=== PATIENT | male | born 1955 | race Caucasian/White ===

== ENCOUNTER 2016-06-12 11:15 | Inpatient (IN) | payer OTHER ==
[2016-06-12] MEDS ORDERED: ONDANSETRON 4 MG/2 ML VIAL IVP STA (13:03)
[2016-06-12] MEDS ORDERED: HYDROmorphone 1 MG/ML 1 ML SYRINGE IVP STA (13:03)
[2016-06-12] MEDS ORDERED: SODIUM CHLORIDE 0.9% 1,000 ML IV STA (13:03)
[2016-06-12] MEDS ORDERED: VANCOMYCIN 1,250 MG in SODIUM CHLORIDE 0.9% 250 ML IVPB STA (13:06)
[2016-06-12] MEDS ORDERED: IV VANCOMYCIN PER PHARMACY 1 EACH MISC MISCELLANE PRN (13:06)
--- NOTE | 2016-06-12 13:08 | ED ---
General Adult HPI - General Source: patient, RN notes reviewed Mode of arrival: ambulatory Limitations: no limitations <Jay Fields - Last Filed: 06/12/16 14:43> <Giovany Ortega - Last Filed: 06/12/16 14:47> - General Chief complaint: Skin/Abscess/Foreign Body Stated complaint: INFECTION ON LEFT FOOT, EAR PAIN, SENT BY DR Time Seen by Provider: 06/12/16 12:54 - History of Present Illness Initial comments: Patient a 61-year-old male who presents emergency room today with chief complaint of infection to the left foot. He does admit that started as symptoms of athlete's foot. He states started in between toes and has gotten much worse the past 3 weeks. Patient states he initially was using a cream over top which seemed to help but has had no relief the past 3 weeks. States is his family doctor today was advised coming here to the emergency room for admission. Patient admits to pain locally to this area. Describes it as a burning type sensation. He denies any other complaints or symptoms. Patient denies any recent fever, chills, shortness of breath, chest pain, back pain, abdominal pain, nausea or vomiting, numbness or tingling, dysuria or hematuria, constipation or diarrhea, headaches or visual changes, or any other complaints. (Jay Fields) - Related Data Home Medications Medication Instructions Recorded Confirmed Naproxen Sodium [Aleve] 440 mg PO BID PRN 06/12/16 06/12/16 Allergies Allergy/AdvReac Type Severity Reaction Status Date / Time No Known Allergies Allergy Verified 06/12/16 13:53 Review of Systems ROS Other: All systems not noted in ROS Statement are negative. <Jay Fields - Last Filed: 06/12/16 14:43> ROS Other: All systems not noted in ROS Statement are negative. <Giovany Ortega - Last Filed: 06/12/16 14:47> ROS Statement: Those systems with pertinent positive or pertinent negative responses have been documented in the HPI. Past Medical History Past Medical History: No Reported History History of Any Multi-Drug Resistant Organisms: None Reported Past Surgical History: Orthopedic Surgery Additional Past Surgical History / Comment(s): ankle Past Psychological History: No Psychological Hx Reported Smoking Status: Current every day smoker Past Alcohol Use History: Occasional Past Drug Use History: None Reported <Jay Fields - Last Filed: 06/12/16 14:43> General Exam Limitations: no limitations <Jay Fields - Last Filed: 06/12/16 14:43> General appearance: alert, in no apparent distress Head exam: Present: atraumatic, normocephalic, normal inspection Eye exam: Present: normal appearance, PERRL, EOMI. Absent: scleral icterus, conjunctival injection, periorbital swelling ENT exam: Present: normal exam, mucous membranes moist Neck exam: Present: normal inspection. Absent: tenderness, meningismus, lymphadenopathy Respiratory exam: Present: normal lung sounds bilaterally. Absent: respiratory distress, wheezes, rales, rhonchi, stridor Cardiovascular Exam: Present: regular rate, normal rhythm, normal heart sounds. Absent: systolic murmur, diastolic murmur, rubs, gallop, clicks GI/Abdominal exam: Present: soft, normal bowel sounds. Absent: distended, tenderness, guarding, rebound, rigid Extremities exam: Present: normal inspection, full ROM, normal capillary refill , other (Left foot second through fourth digits significant swelling erythema and drainage). Absent: tenderness, pedal edema, joint swelling, calf tenderness Back exam: Present: normal inspection Neurological exam: Present: alert, oriented X3, CN II-XII intact Psychiatric exam: Present: normal affect, normal mood Skin exam: Present: warm, dry, intact, normal color. Absent: rash <Giovany Ortega - Last Filed: 06/12/16 14:47> - General Exam Comments Initial Comments: General: The patient is awake and alert, in no distress, and does not appear acutely ill. Eye: Pupils are equal, round and reactive to light, extra-ocular movements are intact. No nystagmus. There is normal conjunctiva bilaterally. No signs of icterus. Ears, nose, mouth and throat: There are moist mucous membranes and no oral lesions. Neck: The neck is supple, there is no tenderness or JVD. Cardiovascular: There is a regular rate and rhythm. No murmur, rub or gallop is appreciated. Respiratory: Lungs are clear to auscultation, respirations are non-labored, breath sounds are equal. No wheezes, stridor, rales, or rhonchi. Musculoskeletal: Normal ROM. Strength 5/5. Sensation intact. Pulses equal bilaterally 2+. Neurological: A&O x 3. CN II-XII intact, There are no obvious motor or sensory deficits. Coordination appears grossly intact. Speech is normal. Skin: Patient does have an infection down to the toes and between the webspace between on the left. It encompasses both the anterior and posterior side. There is redness with a green drainage. There is a foul smell. Psychiatric: Cooperative, appropriate mood & affect, normal judgment. 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8-10.6) k/uL RBC 4.56 (4.30-5.90) m/uL Hgb 14.9 (13.0-17.5) gm/dL Hct 43.9 (39.0-53.0) % MCV 96.3 (80.0-100.0) fL MCH 32.6 (25.0-35.0) pg MCHC 33.9 (31.0-37.0) g/dL RDW 13.7 (11.5-15.5) % Plt Count 285 (150-450) k/uL Neutrophils % 66 % Lymphocytes % 17 % Monocytes % 9 % Eosinophils % 4 % Basophils % 1 % Neutrophils # 7.1 (1.3-7.7) k/uL Lymphocytes # 1.8 (1.0-4.8) k/uL Monocytes # 1.0 (0-1.0) k/uL Eosinophils # 0.4 (0-0.7) k/uL Basophils # 0.1 (0-0.2) k/uL Sodium 141 (137-145) mmol/L Potassium 4.2 (3.5-5.1) mmol/L Chloride 108 H (98-107) mmol/L Carbon Dioxide 24 (22-30) mmol/L Anion Gap 9 mmol/L BUN 18 (9-20) mg/dL Creatinine 0.87 (0.66-1.25) mg/dL Est GFR (MDRD) Af Amer >60 (>60 ml/min/1.73 sqM) Est GFR (MDRD) Non-Af >60 (>60 ml/min/1.73 sqM) Glucose 90 (74-99) mg/dL Calcium 9.2 (8.4-10.2) mg/dL Total Bilirubin 0.5 (0.2-1.3) mg/dL AST 21 (17-59) U/L ALT 29 (21-72) U/L Alkaline Phosphatase 71 (38-126) U/L Total Protein 7.0 (6.3-8.2) g/dL Albumin 4.2 (3.5-5.0) g/dL Disposition Time of Disposition: 14:01 <Jay Fields - Last Filed: 06/12/16 14:43> <Giovany Ortega - Last Filed: 06/12/16 14:47> Clinical Impression: Cellulitis Disposition: ADMITTED IP TO THIS HOSP Condition: Stable Referrals: Cuauhtemoc Wilson DO [Primary Care Provider] - 1-2 days
[2016-06-12 14:02] LABS: Basophils # (A) 0.1 k/uL (0-0.2); Basophils % (A) 1 %; CH 32.6; CHCM 34.1; Eosinophils # (A) 0.4 k/uL (0-0.7); Eosinophils % (A) 4 %; HCT 43.9 % (39.0-53.0); HDW 2.44; HGB 14.9 gm/dL (13.0-17.5); Luc # (Auto) 0.35; Luc % (Auto) 3; Lymphocytes # (A) 1.8 k/uL (1.0-4.8); Lymphocytes % (A) 17 %; MCH 32.6 pg (25.0-35.0); MCHC 33.9 g/dL (31.0-37.0); MCV 96.3 fL (80.0-100.0); Monocytes % (A) 9 %; Neutrophils # (A) 7.1 k/uL (1.3-7.7); Neutrophils % (A) 66 %; RBC 4.56 m/uL (4.30-5.90); RDW 13.7 % (11.5-15.5); WBC 10.8 k/uL (3.8-10.6); WBC (Perox) 10.97
--- NOTE | 2016-06-12 14:05 | XR ---
Left foot HISTORY: Pain and swelling, erythema 3 views of the left foot are submitted. No comparisons There is a plantar calcaneus spur. Soft tissue swelling is suspected. Bone mineralization, joint spac es and alignment are maintained. No periostitis. IMPRESSION: Correlate for cellulitis, edema, follow-up as indicated.
[2016-06-12 14:15] LABS: ALT 29 U/L (21-72); AST 21 U/L (17-59); Alkaline Phosphatase 71 U/L (38-126); Anion Gap 9 mmol/L; Blood Urea Nitrogen 18 mg/dL (9-20); Calcium 9.2 mg/dL (8.4-10.2); Carbon Dioxide 24 mmol/L (22-30); Chloride 108 mmol/L (98-107); Glucose 90 mg/dL (74-99); Non-African American GFR(MDRD) >60 (>60 ml/min/1.73 sqM); Potassium 4.2 mmol/L (3.5-5.1); Sodium 141 mmol/L (137-145); Total Bilirubin 0.5 mg/dL (0.2-1.3)
[2016-06-12] MEDS ORDERED: ACETAMINOPHEN TAB 325 MG TAB PO PRN (14:44)
[2016-06-12] MEDS ORDERED: NALOXONE 0.4 MG/ML 1 ML VIAL IV PRN (14:44)
[2016-06-12] MEDS ORDERED: ONDANSETRON 4 MG/2 ML VIAL IVP PRN (14:44)
[2016-06-12] MEDS ORDERED: SODIUM CHLORIDE 0.9% 1,000 ML IV ONE (14:44)
--- NOTE | 2016-06-12 15:10 | ED ---
Medical Decision Making - Medical Decision Making Patient will be admitted to the hospital for IV antibiotics due to increasing cellulitis of the left foot and outpatient treatment failure. X-rays reviewed are unremarkable for any evidence of osteomyelitis. Patient's labs been reviewed with minimally elevated white count. Vital stable. Patient's pain. Pain medication. Patient be continued on IV antibiotics of vancomycin at this time. Case discussed with attending physician Dr. Ortega who did discuss case with admitting physician Dr. Smith who request consult from infectious disease Dr. Monroy. - Lab Data Result diagrams: 06/12/16 13:40 06/12/16 13:40 Lab Results 06/12/16 06/12/16 Range/Units 13:40 13:40 WBC 10.8 H (3.8-10.6) k/uL RBC 4.56 (4.30-5.90) m/uL Hgb 14.9 (13.0-17.5) gm/dL Hct 43.9 (39.0-53.0) % MCV 96.3 (80.0-100.0) fL MCH 32.6 (25.0-35.0) pg MCHC 33.9 (31.0-37.0) g/dL RDW 13.7 (11.5-15.5) % Plt Count 285 (150-450) k/uL Neutrophils % 66 % Lymphocytes % 17 % Monocytes % 9 % Eosinophils % 4 % Basophils % 1 % Neutrophils # 7.1 (1.3-7.7) k/uL Lymphocytes # 1.8 (1.0-4.8) k/uL Monocytes # 1.0 (0-1.0) k/uL Eosinophils # 0.4 (0-0.7) k/uL Basophils # 0.1 (0-0.2) k/uL Sodium 141 (137-145) mmol/L Potassium 4.2 (3.5-5.1) mmol/L Chloride 108 H (98-107) mmol/L Carbon Dioxide 24 (22-30) mmol/L Anion Gap 9 mmol/L BUN 18 (9-20) mg/dL Creatinine 0.87 (0.66-1.25) mg/dL Est GFR (MDRD) Af Amer >60 (>60 ml/min/1.73 sqM) Est GFR (MDRD) Non-Af >60 (>60 ml/min/1.73 sqM) Glucose 90 (74-99) mg/dL Calcium 9.2 (8.4-10.2) mg/dL Total Bilirubin 0.5 (0.2-1.3) mg/dL AST 21 (17-59) U/L ALT 29 (21-72) U/L Alkaline Phosphatase 71 (38-126) U/L Total Protein 7.0 (6.3-8.2) g/dL Albumin 4.2 (3.5-5.0) g/dL Disposition Clinical Impression: Cellulitis, Failure of outpatient treatment Disposition: ADMITTED IP TO THIS HOSP Condition: Stable Referrals: Cuauhtemoc Wilson DO [Primary Care Provider] - 1-2 days
--- NOTE | 2016-06-12 17:45 | P.HPIM ---
History of Present Illness H&P Date: 06/12/16 Chief Complaint: bilateral toe web drainage, right toe webs redness This is a pleasant 61 year old gentleman patient of Dr Wilson, he is healthy except for tobacco dependence. He had troubles with the webs between his toes for the paat 2 mos that it started denuding with maceration and itchiness and it had gotten worse that the skin between the web of the toes #3,4 ,5 had peeled off, gotten red nd hd significant pain and drainage. he did not seek any consultation or prior treatment from any urgent care or OTC meds. He was seen in the ER for cellulitis compounded by an initially what is suspected as tinea pedis now with secondary bacterial infection. 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 He is currently treated with IV cefazolin, consults with Dr Monroy, and cultures were obtained in ER. Review of Systems Constitutional: Reports as per HPI, Denies anorexia, Denies chills, Denies chronic headaches, Denies chronic pain, Denies daytime sleepiness, Denies fatigue, Denies fever, Denies lethargy, Denies malaise, Denies night sweats, Denies poor appetite, Denies sweats, Denies weakness, Denies weight gain, Denies weight loss Ears, nose, mouth and throat: Reports as per HPI, Denies ant. neck pain, Denies bleeding gums, Denies dental pain, Denies dysphagia, Denies epistaxis, Denies headache, Denies hoarseness, Denies mouth pain, Denies nasal congestion, Denies nasal discharge, Denies neck fullness/pressure, Denies neck lump, Denies nose pain, Denies odynophagia, Denies post-nasal drip, Denies sinus pain, Denies sinus pressure, Denies swelling in mouth, Denies swelling in throat, Denies sore throat, Denies vertigo, Denies voice changes Cardiovascular: Reports as per HPI Musculoskeletal: Reports as per HPI, Denies arm numbness/tingling, Denies atrophy, Denies fractures, Denies frequent falls, Denies gait dysfunction, Denies hot joints, Denies leg numbness/tingling, Denies limitation of motion, Denies loss of height, Denies low back pain, Denies morning stiffness, Denies muscle cramps, Denies muscle weakness, Denies myalgias, Denies neck pain, Denies neck stiffness, Denies prior amputations, Denies redness of joints, Denies shooting arm pain, Denies shooting leg pain Integumentary: Reports as per HPI, Reports rash, Reports sores, Reports wounds, Denies acne, Denies boils, Denies brittle nails, Denies change in hair/nails, Denies color changes, Denies darkening of skin, Denies depigmentation, Denies dryness, Denies foot/leg ulcers, Denies growths, Denies hirsutism, Denies lesions, Denies onychomycosis, Denies pruritus, Denies striae, Denies unusual bruising Neurological: Reports as per HPI, Denies aphasia, Denies ataxia, Denies balance difficulties, Denies burning pain, Denies change in mentation, Denies change in smell/taste, Denies change in speech, Denies confusion, Denies convulsions, Denies double vision, Denies gait dysfunction, Denies head injury, Denies headaches, Denies hearing difficulties, Denies lack of coordination, Denies loss of vision, Denies memory loss, Denies migraines, Denies motor disturbance, Denies numbness, Denies paralysis, Denies paresthesias, Denies seizures, Denies sensory deficit, Denies spasticity, Denies syncope, Denies tic, Denies tingling , Denies transient paralysis, Denies tremors, Denies vertigo, Denies weakness, Denies visual changes Psychiatric: Reports as per HPI, Denies anhedonia, Denies anxiety, Denies anxiety attacks, Denies change in appetite, Denies change in libido, Denies change in sleep habits, Denies confusion, Denies depression, Denies difficulty concentrating, Denies disorientation, Denies hallucinations, Denies hopelessness , Denies hypersomnia, Denies insomnia, Denies irritability, Denies memory loss, Denies mood swings, Denies paranoia, Denies sadness/tearfulness, Denies sleep disturbances, Denies suicidal ideation Endocrine: Reports cold intolerance, Denies as per HPI, Denies deepening of the voice, Denies excessive sweating, Denies excessive thirst, Denies fatigue, Denies flushing, Denies heat intolerance, Denies high blood sugars, Denies increase in ring/shoe/hat size, Denies low blood sugars, Denies nocturia, Denies palpitations, Denies polydipsia, Denies polyphagia, Denies polyuria, Denies proptosis, Denies recent glucocorticoid use, Denies thyroid mass, Denies weight change Hematologic/Lymphatic: Reports as per HPI Past Medical History Past Medical History: No Reported History History of Any Multi-Drug Resistant Organisms: None Reported Past Surgical History: Orthopedic Surgery Additional Past Surgical History / Comment(s): rt ankle arthroscopy, "inj in back" Past Anesthesia/Blood Transfusion Reactions: No Reported Reaction Past Psychological History: No Psychological Hx Reported Additional Psychological History / Comment(s): pt lives withhis and has 1 bibiana dog. lives in ranch style home with 1 step. pt is independant,no outside services, no medical equipment. 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 Smoking Status: Current every day smoker Past Alcohol Use History: Occasional Additional Past Alcohol Use History / Comment(s): started smokng at age 20(1975) , smokes 1 ppd. declined smoking cessation booklet. Past Drug Use History: None Reported - Past Family History Father Additional Family Medical History / Comment(s): back/knee sx Mother Family Medical History: No Reported History Brother(s) Family Medical History: No Reported History Sister(s) Family Medical History: No Reported History Medications and Allergies Home Medications Medication Instructions Recorded Confirmed Type Naproxen Sodium [Aleve] 440 mg PO BID PRN 06/12/16 06/12/16 History Allergies Allergy/AdvReac Type Severity Reaction Status Date / Time No Known Allergies Allergy Verified 06/12/16 13:53 Physical Exam Vitals: Vital Signs Temp Pulse Pulse Resp BP BP Pulse Ox 06/12/16 16:25 97.0 F L 65 20 148/86 95 06/12/16 15:24 97.4 F L 64 16 154/90 100 - Constitutional General appearance: cooperative, no acute distress - EENT Eyes: no abnormal pupil, anicteric sclerae, no disc margins sharp, no edentulous , EOMI, PERRLA, no fundus normal, no photophobia, no dentition normal, no poor dentition, no ptosis, no scleral icterus, no normal appearance ENT: hearing grossly normal, NA/AT - Neck Neck: no lymphadenopathy, normal ROM, no other, no rigidity, no stridor, no thyromegaly - Respiratory Respiratory: bilateral: CTA, negative: diminished, dullness, rales, rhonchi, wheezing, prolonged expiration, prolonged inspiration - Gastrointestinal General gastrointestinal: normal bowel sounds, soft - Integumentary Integumentary: normal, normal turgor, rash (right foot web 2-3.3-4.4-5 macerated white debris, left toes 2-3. 3-4.4-5 with red maceration drainage and odor, right ear lobe red excoriated all lesions with pinpoint papulomatous eruptions) - Neurologic Neurologic: CNII-XII intact - Musculoskeletal Musculoskeletal: gait normal, strength equal bilaterally - Psychiatric Psychiatric: A&O x's 3, appropriate affect, intact judgment & insight Results CBC & Chem 7: 06/12/16 13:40 06/12/16 13:40 Assessment and Plan Plan: 1. bilateral foot cellulitis involving bilateral toes worse on left more than right with secondary bacterial infection suspected, underlying fungal infection. has significant involvent on plantar aspect and dorsum of left foot. patient had cultures done from wounds, he was started on cefaxolin, and lamsil cream. Consult from dr Monroy. no arterial doppler needed as physical exam shows adequate foot pulses 2. right earlobe rash, fungal appearance vs eczema. lamisil ointment to be applied 3. tobacco dependence, pt decline nicotine patches 4. vte prophylaxis with lovenox 40 daily Estimated length of stay: 3 days,
[2016-06-12] MEDS ORDERED: ceFAZolin 2 GM in SODIUM CHLORIDE 0.9% 100 ML IVPB SCH (18:15)
[2016-06-12] MEDS: HYDROmorphone 1 MG/ML 1 ML SYRINGE IV PRN (19:19)
[2016-06-12] MEDS: FLUCONAZOLE 100 MG TAB PO SCH (20:57)
[2016-06-12] MEDS ORDERED: TERBINAFINE 1% CREAM 15 GM TUBE TOPICAL SCH (21:00)
[2016-06-12] MEDS: PIPERACILLIN-TAZOBACTAM 3.375 GM in DEXTROSE/WATER 1 50ML.BAG IVPB SCH (22:17)
--- NOTE | 2016-06-12 23:30 | P.CONS ---
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 The patient relates for the last couple of months she's been having difficulties with what he thought was athlete's foot to the left foot and a bit also to the right. He's been treating it with multiple medications including topical antifungals. He did have treatment from podiatry with [place] soaks. He relates has been some waxing and waning to the status but is now acutely worse. His become much more moist and foul in odor. Because of his time in the was concerned about foot loss. He relates he is less afraid of both Rockets than he is of the current process to his foot which is why he is seeking care. Relates a processes become very uncomfortable but usually is very resistant to pain. He does not believe he has had fever, chills or rigors. He does not feel well overall. Review of Systems HEENT:Denies headache or acute visual change. Denies sinus or mouth discomforts. Denies neck stiffness or pain. Denies significant oral cavity pain. Denies difficulty on swallowing. Lungs: Denies significant shortness of breath, cough, sputum production, or hemoptysis. Cardiovascular: Denies significant shortness of breath, chest pain, chest wall pain, orthopnea, dyspnea on exertion, syncope Gastrointestinal:Denies nausea, vomiting, diarrhea, constipation, hematemesis, melena, hematochezia. No no significant change of bowel habit noticed. Musculoskeletal: denies significant myalgias or arthralgias. No new joint swelling. Denies new back pain. Skin: Nippy and lesions to left foot as well as a bit to the right foot at the toes very tender Neuro: Denies headache or visual change. Denies any new onset weakness or difficulty with ambulation. Denies falls or seizures. Psychiatric:Denies anxiety or depression. Endocrine: Denies significant fatigue, denies significant weight loss or weight gain. Past Medical History Past Medical History: No Reported History History of Any Multi-Drug Resistant Organisms: None Reported Past Surgical History: Orthopedic Surgery Additional Past Surgical History / Comment(s): rt ankle arthroscopy, "inj in back" Past Anesthesia/Blood Transfusion Reactions: No Reported Reaction Past Psychological History: No Psychological Hx Reported Additional Psychological History / Comment(s): pt lives withhis and has 1 bibiana dog. lives in ranch style home with 1 step. pt is independant,no outside services, no medical equipment. 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 He does work in the [facility] area and travels quite a bit on a daily basis. His feet are in steel toed boots but he is not in water or chemicals throughout the day. Does not relate to any soaks to the feet other than the [place]. No international travel since his experience when he was in the [place] in [place]. Had no foot troubles at that time has not been to tropical destinations. Ongoing tobacco use. Denies significant alcohol use. No recreational drug use. No children. Smoking Status: Current every day smoker Past Alcohol Use History: Occasional Additional Past Alcohol Use History / Comment(s): started smokng at age 20(1975) , smokes 1 ppd. declined smoking cessation booklet. Past Drug Use History: None Reported - Past Family History Father Additional Family Medical History / Comment(s): back/knee sx Mother Family Medical History: No Reported History Brother(s) Family Medical History: No Reported History Sister(s) Family Medical History: No Reported History Medications and Allergies Home Medications and Allergies Comment(s): Current Medications Acetaminophen (Tylenol Tab) 650 mg PO Q6HR PRN PRN Reason: Mild Pain or Fever > 100.5 Fluconazole (Diflucan) 200 mg PO Q24H DIVINE Last Admin: 06/12/16 20:57 Dose: 200 mg Hydromorphone HCl (Dilaudid) 1 mg IV Q3HR PRN PRN Reason: Severe Pain Last Admin: 06/12/16 19:19 Dose: 1 mg Vancomycin HCl 1,250 mg/ (Sodium Chloride) 250 mls @ 125 mls/hr IVPB DAILY@0000 ,1200 DIVINE Sodium Chloride (Saline 0.9%) 1,000 mls @ 75 mls/hr IV .[id number] ONE Stop: 06/13/16 04:03 Last Admin: 06/12/16 17:06 Dose: Not Given Piperacillin/Tazobactam/ (Dextrose 3.375 gm/ IV Solution) 50 mls @ 12.5 mls/hr IVPB Q8H DIVINE Last Admin: 06/12/16 22:17 Dose: 12.5 mls/hr Naloxone HCl (Narcan) 0.2 mg IV Q2M PRN PRN Reason: Opioid Reversal Ondansetron HCl (Zofran) 4 mg IVP Q8HR PRN PRN Reason: Nausea And Vomiting Home Medications Medication Instructions Recorded Confirmed Type Naproxen Sodium [Aleve] 440 mg PO BID PRN 06/12/16 06/12/16 History Allergies Allergy/AdvReac Type Severity Reaction Status Date / Time No Known Allergies Allergy Verified 06/12/16 13:53 Physical Exam Vitals: Vital Signs Temp Pulse Pulse Resp BP BP Pulse Ox 06/12/16 16:25 97.0 F L 65 20 148/86 95 06/12/16 15:24 97.4 F L 64 16 154/90 100 Intake and Output 06/12/16 06/12/16 06/13/16 14:59 22:59 06:59 Intake Total 480 Balance 480 Intake: Oral 480 Other: # Voids 1 Pleasant 61-year-old male a very thin muscular build is uncomfortable due to the pain and discomfort to his left foot. Is also having some anxiety related to the foot. HEENT: Anicteric conjunctiva are pink and moist nasal mucosa grossly intact without significant lesions, there is no thrush. Neck: The neck is supple without significant lymphadenopathy or thyromegaly. Lungs: Good bilateral air entry without significant crackles or wheezing. There is no significant bronchial sounds. There is no egophony or dullness. Heart: Regular rate and rhythm with an audible S1-S2, no S3 no S4. There is no significant murmur click or rub, PMI was nondisplaced. Abdomen: Positive bowel sounds soft and nontender without palpable masses or organomegaly. There was no guarding or rebound. Extremities: The upper extremities have excellent pulses they are symmetric, no significant petechiae or telangiectasia. No splinter hemorrhages were noted. The right foot shows evidence of some mild yakelin infection of the interspace of the toes Left foot shows evidence of the extensive ulceration of the skin over all the toes especially 2 through 5. Plantar surfaces full-thickness loss dorsal surfaces partial-thickness loss. There is drainage and odor, erythema and tenderness. There is minimal swelling of the foot. The foot is warm to touch. Peripheral pulses 2+ and symmetric. Neuro: Awake alert oriented to person place and time. There are no acute new gross focal sensory motor deficits. Results CBC & Chem 7: 06/12/16 13:40 06/12/16 13:40 Labs: Laboratory Results WBC 10.8 k/uL (3.8-10.6) H 06/12/16 13:40 RBC 4.56 m/uL (4.30-5.90) 06/12/16 13:40 Hgb 14.9 gm/dL (13.0-17.5) 06/12/16 13:40 Hct 43.9 % (39.0-53.0) 06/12/16 13:40 MCV 96.3 fL (80.0-100.0) 06/12/16 13:40 MCH 32.6 pg (25.0-35.0) 06/12/16 13:40 MCHC 33.9 g/dL (31.0-37.0) 06/12/16 13:40 RDW 13.7 % (11.5-15.5) 06/12/16 13:40 Plt Count 285 k/uL (150-450) 06/12/16 13:40 Neutrophils % 66 % 06/12/16 13:40 Lymphocytes % 17 % 06/12/16 13:40 Monocytes % 9 % 06/12/16 13:40 Eosinophils % 4 % 06/12/16 13:40 Basophils % 1 % 06/12/16 13:40 Neutrophils # 7.1 k/uL (1.3-7.7) 06/12/16 13:40 Lymphocytes # 1.8 k/uL (1.0-4.8) 06/12/16 13:40 Monocytes # 1.0 k/uL (0-1.0) 06/12/16 13:40 Eosinophils # 0.4 k/uL (0-0.7) 06/12/16 13:40 Basophils # 0.1 k/uL (0-0.2) 06/12/16 13:40 Sodium 141 mmol/L (137-145) 06/12/16 13:40 Potassium 4.2 mmol/L (3.5-5.1) 06/12/16 13:40 Chloride 108 mmol/L (98-107) H 06/12/16 13:40 Carbon Dioxide 24 mmol/L (22-30) 06/12/16 13:40 Anion Gap 9 mmol/L 06/12/16 13:40 BUN 18 mg/dL (9-20) 06/12/16 13:40 Creatinine 0.87 mg/dL (0.66-1.25) 06/12/16 13:40 Est GFR (MDRD) Af Amer >60 (>60 ml/min/1.73 sqM) 06/12/16 13:40 Est GFR (MDRD) Non-Af >60 (>60 ml/min/1.73 sqM) 06/12/16 13:40 Glucose 90 mg/dL (74-99) 06/12/16 13:40 Calcium 9.2 mg/dL (8.4-10.2) 06/12/16 13:40 Total Bilirubin 0.5 mg/dL (0.2-1.3) 06/12/16 13:40 AST 21 U/L (17-59) 06/12/16 13:40 ALT 29 U/L (21-72) 06/12/16 13:40 Alkaline Phosphatase 71 U/L (38-126) 06/12/16 13:40 Total Protein 7.0 g/dL (6.3-8.2) 06/12/16 13:40 Albumin 4.2 g/dL (3.5-5.0) 06/12/16 13:40 Microbiology 06/12/16 13:40 Toe - Left Fourth Wound Culture - Preliminary Assessment and Plan (1) Failure of outpatient treatment Narrative/Plan: Very pleasant 61 year old male presents to Hospital with significant worsening of the skin problems to the left foot at the toes. He thought he was having significant fungal problems. Was treating that accordingly. Despite [place] soaks and topical antifungal therapy he was not improving. He did seek care at his primary care physician office and was directly sent to hospital for admission. As noted there is an extensive cellulitis with some full thickness tissue loss over toes 234 and 5 especially on the plantar surface. It is tender and very uncomfortable. There is sustained odor and drainage. Cultures of been obtained. Leukocytosis is noted. Pain control with Dilaudid as been per the primary care physician and seems to be effective. Local wound care will will be with the Optisol silver Antimicrobial therapy with Zosyn, vancomycin and Diflucan for now while cultures are pending. Plan x-ray failed to reveal evidence of significant abnormalities. Patient is a smoker, but the foot feels warm and well perfused. We do well still to have arterial Dopplers performed. Status: Acute (2) Cellulitis of foot, left Status: Acute (3) Leukocytosis Status: Acute (4) Pain in left foot Status: Acute
[2016-06-13] MEDS: VANCOMYCIN 1,250 MG in SODIUM CHLORIDE 0.9% 250 ML IVPB SCH ×2 (02:31→12:12)
[2016-06-13] MEDS: PIPERACILLIN-TAZOBACTAM 3.375 GM in DEXTROSE/WATER 1 50ML.BAG IVPB SCH ×3 (06:03→20:57)
[2016-06-13 09:41] LABS: Basophils # (A) 0.1 k/uL (0-0.2); Basophils % (A) 1 %; CH 32.5; Eosinophils # (A) 0.5 k/uL (0-0.7); Eosinophils % (A) 4 %; HCT 45.7 % (39.0-53.0); HDW 2.48; HGB 14.8 gm/dL (13.0-17.5); Luc # (Auto) 0.33; Luc % (Auto) 3; Lymphocytes # (A) 1.7 k/uL (1.0-4.8); Lymphocytes % (A) 14 %; MCH 32.1 pg (25.0-35.0); MCHC 32.5 g/dL (31.0-37.0); MCV 98.9 fL (80.0-100.0); Monocytes # (A) 0.9 k/uL (0-1.0); Monocytes % (A) 8 %; Neutrophils # (A) 8.3 k/uL (1.3-7.7); Neutrophils % (A) 71 %; RBC 4.62 m/uL (4.30-5.90); RDW 13.8 % (11.5-15.5); WBC 11.8 k/uL (3.8-10.6); WBC (Perox) 12.15
[2016-06-13 10:06] LABS: ALT 33 U/L (21-72); AST 21 U/L (17-59); Alkaline Phosphatase 69 U/L (38-126); Anion Gap 8 mmol/L; Blood Urea Nitrogen 11 mg/dL (9-20); Calcium 8.9 mg/dL (8.4-10.2); Carbon Dioxide 24 mmol/L (22-30); Chloride 109 mmol/L (98-107); Glucose 99 mg/dL (74-99); Non-African American GFR(MDRD) >60 (>60 ml/min/1.73 sqM); Potassium 4.6 mmol/L (3.5-5.1); Sodium 141 mmol/L (137-145); Total Bilirubin 0.7 mg/dL (0.2-1.3); Total Protein 6.3 g/dL (6.3-8.2)
[2016-06-13] MEDS: HYDROmorphone 1 MG/ML 1 ML SYRINGE IV PRN ×3 (10:08→21:17)
[2016-06-13 10:13] LABS: Prealbumin 24 mg/dL (18-36)
[2016-06-13 12:01] LABS: Erythrocyte Sedimentation Rate 5 mm/hr (0-15)
--- NOTE | 2016-06-13 12:45 | P.PN ---
Subjective This is a pleasant 61 year old gentleman patient of Dr Wilson, he is healthy except for tobacco dependence. He had troubles with the webs between his toes for the paat 2 mos that it started denuding with maceration and itchiness and it had gotten worse that the skin between the web of the toes #3,4 ,5 had peeled off, gotten red nd hd significant pain and drainage. he did not seek any consultation or prior treatment from any urgent care or OTC meds. He was seen in the ER for cellulitis compounded by an initially what is suspected as tinea pedis now with secondary bacterial infection. 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 He is currently treated with IV cefazolin, consults with Dr Monroy, and cultures were obtained in ER. 06/13: Patient has been followed by Dr. Monroy with recommendations to continue Zosyn, vancomycin, Diflucan and Opticell dressing. Wound culture is in process. Pre-albumin 24. White count currently 11.8. Objective - Vital Signs Vital signs: Vital Signs Temp 97.2 F L 06/13/16 07:00 Pulse 68 06/13/16 07:00 Resp 18 06/13/16 07:00 BP 146/68 06/13/16 07:00 Pulse Ox 97 06/13/16 07:00 Intake & Output 06/12/16 06/13/16 06/13/16 18:59 06:59 18:59 Intake Total 480 Balance 480 Intake: Oral 480 Other: # Voids 1 - Exam General appearance: cooperative, no acute distress - EENT Eyes: no abnormal pupil, anicteric sclerae, no disc margins sharp, no edentulous , EOMI, PERRLA, no fundus normal, no photophobia, no dentition normal, no poor dentition, no ptosis, no scleral icterus, no normal appearance ENT: hearing grossly normal, NA/AT - Neck Neck: no lymphadenopathy, normal ROM, no other, no rigidity, no stridor, no thyromegaly - Respiratory Respiratory: bilateral: CTA, negative: diminished, dullness, rales, rhonchi, wheezing, prolonged expiration, prolonged inspiration - Gastrointestinal General gastrointestinal: normal bowel sounds, soft - Integumentary Integumentary: normal, normal turgor, rash (right foot web 2-3.3-4.4-5 macerated white debris, left toes 2-3. 3-4.4-5 with red maceration drainage and odor, right ear lobe red excoriated all lesions with pinpoint papulomatous eruptions) - Neurologic Neurologic: CNII-XII intact - Musculoskeletal Musculoskeletal: gait normal, strength equal bilaterally - Psychiatric Psychiatric: A&O x's 3, appropriate affect, intact judgment & insight - Labs CBC & Chem 7: 06/13/16 09:22 06/13/16 09:22 Labs: Abnormal Lab Results - Last 24 Hours (Table) 06/13/16 06/13/16 Range/Units 09:22 09:22 WBC 11.8 H (3.8-10.6) k/uL Neutrophils # 8.3 H (1.3-7.7) k/uL Chloride 109 H (98-107) mmol/L Assessment and Plan Plan: 1. bilateral foot cellulitis involving bilateral toes worse on left more than right with secondary bacterial infection suspected, underlying fungal infection. Continue IV abx, diflucan, local wound care. Dr. Monroy following. 2. right earlobe rash, fungal appearance vs eczema. lamisil ointment to be applied 3. tobacco dependence, pt decline nicotine patches 4. vte prophylaxis with lovenox 40 daily Discharge plan: return home. [facility] Impression and plan of care have been directed as dictated by the signing physician. Agnes Durbin nurse practitioner acting as scribe for signing physician. Time with Patient: Greater than 30
[2016-06-13] MEDS: FLUCONAZOLE 100 MG TAB PO SCH (20:58)
--- NOTE | 2016-06-13 22:22 | P.PN ---
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 The patient relates for the last couple of months she's been having difficulties with what he thought was athlete's foot to the left foot and a bit also to the right. He's been treating it with multiple medications including topical antifungals. He did have treatment from podiatry with [place] soaks. He relates has been some waxing and waning to the status but is now acutely worse. His become much more moist and foul in odor. Because of his time in the was concerned about foot loss. He relates he is less afraid of both Rockets than he is of the current process to his foot which is why he is seeking care. Relates a processes become very uncomfortable but usually is very resistant to pain. He does not believe he has had fever, chills or rigors. He does not feel well overall. Quite unhappy about being in the hospital. Does not like a slow pace of cultures and local care. Objective - Vital Signs Vital signs: Vital Signs Temp 97.0 F L 06/13/16 15:16 Pulse 61 06/13/16 15:16 Resp 18 06/13/16 15:16 BP 133/73 06/13/16 15:16 Pulse Ox 98 06/13/16 15:16 Intake & Output 06/13/16 06/13/16 06/14/16 06:59 18:59 06:59 Other: # Voids 1 1 1 - Exam 61-year-old male a thin muscular build is uncomfortable due to the pain and discomfort to his left foot. Is also having some anxiety related to the foot. HEENT: Anicteric conjunctiva are pink and moist nasal mucosa grossly intact without significant lesions, there is no thrush. Neck: The neck is supple without significant lymphadenopathy or thyromegaly. Lungs: Good bilateral air entry without significant crackles or wheezing. There is no significant bronchial sounds. There is no egophony or dullness. Heart: Regular rate and rhythm with an audible S1-S2, no S3 no S4. There is no significant murmur click or rub, PMI was nondisplaced. Abdomen: Positive bowel sounds soft and nontender without palpable masses or organomegaly. There was no guarding or rebound. Extremities: The upper extremities have excellent pulses they are symmetric, no significant petechiae or telangiectasia. No splinter hemorrhages were noted. The right foot shows evidence of some mild yakelin infection of the interspace of the toes Left foot shows evidence of the extensive ulceration of the skin over all the toes especially 2 through 5. Plantar surfaces full-thickness loss dorsal surfaces partial-thickness loss. There is drainage and odor, erythema and tenderness. There is minimal swelling of the foot. The foot is warm to touch. Peripheral pulses 2+ and symmetric. Neuro: Awake alert oriented to person place and time. There are no acute new gross focal sensory motor deficits. - Labs CBC & Chem 7: 06/13/16 09:22 06/13/16 09:22 Labs: Abnormal Lab Results - Last 24 Hours (Table) 06/13/16 06/13/16 Range/Units 09: 09:22 WBC 11.8 H (3.8-10.6) k/uL Neutrophils # 8.3 H (1.3-7.7) k/uL Chloride 109 H (98-107) mmol/L Laboratory Results WBC 11.8 k/uL (3.8-10.6) H 06/13/16 09:22 RBC 4.62 m/uL (4.30-5.90) 06/13/16 09:22 Hgb 14.8 gm/dL (13.0-17.5) 06/13/16 09:22 Hct 45.7 % (39.0-53.0) 06/13/16 09:22 MCV 98.9 fL (80.0-100.0) 06/13/16 09:22 MCH 32.1 pg (25.0-35.0) 06/13/16 09:22 MCHC 32.5 g/dL (31.0-37.0) 06/13/16 09:22 RDW 13.8 % (11.5-15.5) 06/13/16 09:22 Plt Count 264 k/uL (150-450) 06/13/16 09:22 Neutrophils % 71 % 06/13/16 09:22 Lymphocytes % 14 % 06/13/16 09:22 Monocytes % 8 % 06/13/16 09:22 Eosinophils % 4 % 06/13/16 09:22 Basophils % 1 % 06/13/16 09:22 Neutrophils # 8.3 k/uL (1.3-7.7) H 06/13/16 09:22 Lymphocytes # 1.7 k/uL (1.0-4.8) 06/13/16 09:22 Monocytes # 0.9 k/uL (0-1.0) 06/13/16 09:22 Eosinophils # 0.5 k/uL (0-0.7) 06/13/16 09:22 Basophils # 0.1 k/uL (0-0.2) 06/13/16 09:22 ESR 5 mm/hr (0-15) 06/13/16 09:22 Sodium 141 mmol/L (137-145) 06/13/16 09:22 Potassium 4.6 mmol/L (3.5-5.1) 06/13/16 09:22 Chloride 109 mmol/L (98-107) H 06/13/16 09:22 Carbon Dioxide 24 mmol/L (22-30) 06/13/16 09:22 Anion Gap 8 mmol/L 06/13/16 09:22 BUN 11 mg/dL (9-20) 06/13/16 09:22 Creatinine 0.80 mg/dL (0.66-1.25) 06/13/16 09:22 Est GFR (MDRD) Af Amer >60 (>60 ml/min/1.73 sqM) 06/13/16 09:22 Est GFR (MDRD) Non-Af >60 (>60 ml/min/1.73 sqM) 06/13/16 09:22 Glucose 99 mg/dL (74-99) 06/13/16 09:22 Calcium 8.9 mg/dL (8.4-10.2) 06/13/16 09:22 Total Bilirubin 0.7 mg/dL (0.2-1.3) 06/13/16 09:22 AST 21 U/L (17-59) 06/13/16 09:22 ALT 33 U/L (21-72) 06/13/16 09:22 Alkaline Phosphatase 69 U/L (38-126) 06/13/16 09:22 Total Protein 6.3 g/dL (6.3-8.2) 06/13/16 09:22 Albumin 3.6 g/dL (3.5-5.0) 06/13/16 09:22 Prealbumin 24 mg/dL (18-36) 06/13/16 09:22 Microbiology 06/12/16 13:40 Blood Blood Culture - Preliminary No Growth after 24 hours 06/12/16 13:40 Toe - Left Fourth Gram Stain - Preliminary 06/12/16 13:40 Toe - Left Fourth Wound Culture - Preliminary Gram Neg Bacilli Assessment and Plan (1) Failure of outpatient treatment Narrative/Plan: Very pleasant 61 year old male presents to Hospital with significant worsening of the skin problems to the left foot at the toes. He thought he was having significant fungal problems. Was treating that accordingly. Despite [place]boro soaks and topical antifungal therapy he was not improving. He did seek care at his primary care physician office and was directly sent to hospital for admission. As noted there is an extensive cellulitis with some full thickness tissue loss over toes 234 and 5 especially on the plantar surface. It is tender and very uncomfortable. There is sustained odor and drainage. Cultures of been obtained. Leukocytosis is noted. Pain control with Dilaudid as been per the primary care physician and seems to be effective. Local wound care will will be with the Opticell silver Antimicrobial therapy with Zosyn, vancomycin and Diflucan for now while cultures are pending. Plain x-ray failed to reveal evidence of significant abnormalities. Patient is a smoker, but the foot feels warm and well perfused. We do well still to have arterial Dopplers performed. Status: Acute (2) Cellulitis of foot, left Status: Acute (3) Leukocytosis Status: Acute (4) Pain in left foot Status: Acute
[2016-06-14] MEDS: VANCOMYCIN 1,250 MG in SODIUM CHLORIDE 0.9% 250 ML IVPB SCH ×2 (00:14→12:54)
[2016-06-14] MEDS: HYDROmorphone 1 MG/ML 1 ML SYRINGE IV PRN ×6 (00:14→20:57)
[2016-06-14] MEDS: PIPERACILLIN-TAZOBACTAM 3.375 GM in DEXTROSE/WATER 1 50ML.BAG IVPB SCH ×3 (04:23→20:58)
--- NOTE | 2016-06-14 11:57 | P.PN ---
Subjective This is a pleasant 61 year old gentleman patient of Dr Wilson, he is healthy except for tobacco dependence. He had troubles with the webs between his toes for the paat 2 mos that it started denuding with maceration and itchiness and it had gotten worse that the skin between the web of the toes #3,4 ,5 had peeled off, gotten red nd hd significant pain and drainage. he did not seek any consultation or prior treatment from any urgent care or OTC meds. He was seen in the ER for cellulitis compounded by an initially what is suspected as tinea pedis now with secondary bacterial infection. 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 He is currently treated with IV cefazolin, consults with Dr Monroy, and cultures were obtained in ER. 06/13: Patient has been followed by Dr. Monroy with recommendations to continue Zosyn, vancomycin, Diflucan and Opticell dressing. Wound culture is in process. Pre-albumin 24. White count currently 11.8. 06/14: wound culture is currently reported as gram-negative bacilli. Patient states pain to his foot is somewhat improved today. Lamisil cream ordered for ear lesion and culture report to be obtained from Dr. Burgess's office Objective - Vital Signs Vital signs: Vital Signs Temp 97.0 F L 06/14/16 07:00 Pulse 61 06/14/16 07:00 Resp 18 06/14/16 07:00 BP 143/78 06/14/16 07:00 Pulse Ox 97 06/14/16 07:00 Intake & Output 06/13/16 06/14/16 06/14/16 18:59 06:59 18:59 Intake Total 100 200 Balance 100 200 Intake: Oral 100 200 Other: Voiding Method Toilet Toilet # Voids 1 1 - Exam General appearance: cooperative, no acute distress - EENT Eyes: no abnormal pupil, anicteric sclerae, no disc margins sharp, no edentulous , EOMI, PERRLA, no fundus normal, no photophobia, no dentition normal, no poor dentition, no ptosis, no scleral icterus, no normal appearance ENT: hearing grossly normal, NA/AT - Neck Neck: no lymphadenopathy, normal ROM, no other, no rigidity, no stridor, no thyromegaly - Respiratory Respiratory: bilateral: CTA, negative: diminished, dullness, rales, rhonchi, wheezing, prolonged expiration, prolonged inspiration - Gastrointestinal General gastrointestinal: normal bowel sounds, soft - Integumentary Integumentary: normal, normal turgor, rash (right foot web 2-3.3-4.4-5 macerated white debris, left toes 2-3. 3-4.4-5 with red maceration drainage and odor, right ear lobe red excoriated all lesions with pinpoint papulomatous eruptions) - Neurologic Neurologic: CNII-XII intact - Musculoskeletal Musculoskeletal: gait normal, strength equal bilaterally - Psychiatric Psychiatric: A&O x's 3, appropriate affect, intact judgment & insight - Labs CBC & Chem 7: 06/13/16 09:22 06/13/16 09:22 Labs: Abnormal Lab Results - Last 24 Hours (Table) 06/13/16 Range/Units 09:22 WBC 11.8 H (3.8-10.6) k/uL Neutrophils # 8.3 H (1.3-7.7) k/uL Assessment and Plan Plan: 1. bilateral foot cellulitis involving bilateral toes worse on left more than right with secondary bacterial infection suspected, underlying fungal infection. Continue IV abx, diflucan, local wound care. Dr. Monroy following. 2. right earlobe rash, fungal appearance vs eczema. lamisil ointment to be applied and culture to be obtained from Dr. Burgess's office 3. tobacco dependence, pt decline nicotine patches 4. vte prophylaxis with lovenox 40 daily Discharge plan: return home. [facility] up [facility] Impression and plan of care have been directed as dictated by the signing physician. Agnes Durbin nurse practitioner acting as scribe for signing physician. Time with Patient: Greater than 30
[2016-06-14] MEDS: TERBINAFINE 1% CREAM 15 GM TUBE TOPICAL SCH ×2 (12:55→20:59)
--- NOTE | 2016-06-14 18:40 | P.PN ---
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 The patient relates for the last couple of months she's been having difficulties with what he thought was athlete's foot to the left foot and a bit also to the right. He's been treating it with multiple medications including topical antifungals. He did have treatment from podiatry with [place] soaks. He relates has been some waxing and waning to the status but is now acutely worse. His become much more moist and foul in odor. Because of his time in the was concerned about foot loss. He relates he is less afraid of both Rockets than he is of the current process to his foot which is why he is seeking care. Relates a processes become very uncomfortable but usually is very resistant to pain. He does not believe he has had fever, chills or rigors. He does not feel well overall. Quite unhappy about being in the hospital. Does not like a slow pace of cultures and local care. Fortunately not have some culture data back. This helps him understand the extensive nature of his infection. He is able to see when the dressing change occurs that he has full-thickness tissue loss and with the discomfort understands need for ongoing care. Objective - Vital Signs Vital signs: Vital Signs Temp 97.2 F L 06/14/16 15:00 Pulse 63 06/14/16 15:00 Resp 18 06/14/16 15:00 BP 150/76 06/14/16 15:00 Pulse Ox 96 06/14/16 15:00 Intake & Output 06/13/16 06/14/16 06/14/16 18:59 06:59 18:59 Intake Total 100 1500 Balance 100 1500 Intake: Intake, IV Titration 300 Amount Piperacillin-Tazobactam 3 50 .375 gm In Dextrose/Water 1 50ml.bag @ 12.5 mls/hr IVPB Q8H [facility] Rx#: [id number] Vancomycin 1,250 mg In 250 Sodium Chloride 0.9% 250 ml @ 125 mls/hr IVPB DAILY@0000,1200 [facility] Rx#: [id number] Oral 100 1200 Other: Voiding Method Toilet Toilet # Voids 1 1 3 - Exam 61-year-old male a thin muscular build is uncomfortable due to the pain and discomfort to his left foot. Is also having some anxiety related to the foot. HEENT: Anicteric conjunctiva are pink and moist nasal mucosa grossly intact without significant lesions, there is no thrush. Neck: The neck is supple without significant lymphadenopathy or thyromegaly. Lungs: Good bilateral air entry without significant crackles or wheezing. There is no significant bronchial sounds. There is no egophony or dullness. Heart: Regular rate and rhythm with an audible S1-S2, no S3 no S4. There is no significant murmur click or rub, PMI was nondisplaced. Abdomen: Positive bowel sounds soft and nontender without palpable masses or organomegaly. There was no guarding or rebound. Extremities: The upper extremities have excellent pulses they are symmetric, no significant petechiae or telangiectasia. No splinter hemorrhages were noted. The right foot shows evidence of some mild yakelin infection of the interspace of the toes Left foot shows evidence of the extensive ulceration of the skin over all the toes especially 2 through 5. Plantar surfaces full-thickness loss dorsal surfaces partial-thickness loss. There is drainage and odor, erythema and tenderness. There is minimal swelling of the foot. The foot is warm to touch. Peripheral pulses 2+ and symmetric. Neuro: Awake alert oriented to person place and time. There are no acute new gross focal sensory motor deficits. - Labs CBC & Chem 7: 06/13/16 09:22 06/13/16 09:22 Labs: Laboratory Results WBC 11.8 k/uL (3.8-10.6) H 06/13/16 09: RBC 4.62 m/uL (4.30-5.90) 06/13/16 09:22 Hgb 14.8 gm/dL (13.0-17.5) 06/13/16 09:22 Hct 45.7 % (39.0-53.0) 06/13/16 09:22 MCV 98.9 fL (80.0-100.0) 06/13/16 09:22 MCH 32.1 pg (25.0-35.0) 06/13/16 09:22 MCHC 32.5 g/dL (31.0-37.0) 06/13/16 09:22 RDW 13.8 % (11.5-15.5) 06/13/16 09:22 Plt Count 264 k/uL (150-450) 06/13/16 09:22 Neutrophils % 71 % 06/13/16 09:22 Lymphocytes % 14 % 06/13/16 09:22 Monocytes % 8 % 06/13/16 09:22 Eosinophils % 4 % 06/13/16 09:22 Basophils % 1 % 06/13/16 09:22 Neutrophils # 8.3 k/uL (1.3-7.7) H 06/13/16 09:22 Lymphocytes # 1.7 k/uL (1.0-4.8) 06/13/16 09:22 Monocytes # 0.9 k/uL (0-1.0) 06/13/16 09:22 Eosinophils # 0.5 k/uL (0-0.7) 06/13/16 09:22 Basophils # 0.1 k/uL (0-0.2) 06/13/16 09:22 ESR 5 mm/hr (0-15) 06/13/16 09:22 Sodium 141 mmol/L (137-145) 06/13/16 09:22 Potassium 4.6 mmol/L (3.5-5.1) 06/13/16 09:22 Chloride 109 mmol/L (98-107) H 06/13/16 09:22 Carbon Dioxide 24 mmol/L (22-30) 06/13/16 09:22 Anion Gap 8 mmol/L 06/13/16 09:22 BUN 11 mg/dL (9-20) 06/13/16 09:22 Creatinine 0.80 mg/dL (0.66-1.25) 06/13/16 09:22 Est GFR (MDRD) Af Amer >60 (>60 ml/min/1.73 sqM) 06/13/16 09:22 Est GFR (MDRD) Non-Af >60 (>60 ml/min/1.73 sqM) 06/13/16 09:22 Glucose 99 mg/dL (74-99) 06/13/16 09:22 Calcium 8.9 mg/dL (8.4-10.2) 06/13/16 09:22 Total Bilirubin 0.7 mg/dL (0.2-1.3) 06/13/16 09:22 AST 21 U/L (17-59) 06/13/16 09:22 ALT 33 U/L (21-72) 06/13/16 09:22 Alkaline Phosphatase 69 U/L (38-126) 06/13/16 09:22 Total Protein 6.3 g/dL (6.3-8.2) 06/13/16 09:22 Albumin 3.6 g/dL (3.5-5.0) 06/13/16 09:22 Prealbumin 24 mg/dL (18-36) 06/13/16 09:22 Microbiology 06/12/16 13:40 Blood Blood Culture - Preliminary No Growth after 48 hours 06/12/16 13:40 Toe - Left Fourth Gram Stain - Preliminary 06/12/16 13:40 Toe - Left Fourth Wound Culture - Preliminary Pseudomonas aeruginosa Beta Hemolytic Strep Group C Presumptive Staph aureus Assessment and Plan (1) Failure of outpatient treatment Narrative/Plan: Very pleasant 61 year old male presents to Hospital with significant worsening of the skin problems to the left foot at the toes. He thought he was having significant fungal problems. Was treating that accordingly. Despite [place] soaks and topical antifungal therapy he was not improving. He did seek care at his primary care physician office and was directly sent to hospital for admission. As noted there is an extensive cellulitis with some full thickness tissue loss over toes 234 and 5 especially on the plantar surface. It is tender and very uncomfortable. There is sustained odor and drainage. Cultures of been obtained. Leukocytosis is noted. Pain control with Dilaudid as been per the primary care physician and seems to be effective. Local wound care will will be with the Opticell silver which is tolerating very well. His it's not sticking in his having less pain. Antimicrobial therapy with Zosyn, vancomycin and Diflucan Which will be continued now that we have pulmonary culture data with Pseudomonas , Streptococcus, and staph aureus not MRSA at this time. Plain x-ray failed to reveal evidence of significant abnormalities. Patient is a smoker, but the foot feels warm and well perfused. We do well still to have arterial Dopplers performed. Patient's is called and the care is discussed. The culture showed the patient and we try to relate that the pseudomonas that he has is not treatable with oral antibiotic therapy and may need outpatient intravenous antibiotic therapy. Status: Acute (2) Cellulitis of foot, left Status: Acute (3) Leukocytosis Status: Acute (4) Pain in left foot Status: Acute
[2016-06-14] MEDS: FLUCONAZOLE 100 MG TAB PO SCH (20:59)
[2016-06-14] MEDS ORDERED: VANCOMYCIN TROUGH DUE 1 EACH MISC MISCELLANE ONE (23:00)
[2016-06-15] MEDS: VANCOMYCIN 1,250 MG in SODIUM CHLORIDE 0.9% 250 ML IVPB SCH ×2 (01:00→11:08)
[2016-06-15] MEDS: PIPERACILLIN-TAZOBACTAM 3.375 GM in DEXTROSE/WATER 1 50ML.BAG IVPB SCH ×3 (05:38→20:36)
[2016-06-15] MEDS: HYDROmorphone 1 MG/ML 1 ML SYRINGE IV PRN ×4 (06:17→20:37)
[2016-06-15] MEDS: TERBINAFINE 1% CREAM 15 GM TUBE TOPICAL SCH ×2 (07:35→20:37)
--- NOTE | 2016-06-15 12:06 | P.PN ---
Subjective This is a pleasant 61 year old gentleman patient of Dr Wilson, he is healthy except for tobacco dependence. He had troubles with the webs between his toes for the paat 2 mos that it started denuding with maceration and itchiness and it had gotten worse that the skin between the web of the toes #3,4 ,5 had peeled off, gotten red nd hd significant pain and drainage. he did not seek any consultation or prior treatment from any urgent care or OTC meds. He was seen in the ER for cellulitis compounded by an initially what is suspected as tinea pedis now with secondary bacterial infection. 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 He is currently treated with IV cefazolin, consults with Dr Monroy, and cultures were obtained in ER. 06/13: Patient has been followed by Dr. Monroy with recommendations to continue Zosyn, vancomycin, Diflucan and Opticell dressing. Wound culture is in process. Pre-albumin 24. White count currently 11.8. 06/14: wound culture is currently reported as gram-negative bacilli. Patient states pain to his foot is somewhat improved today. Lamisil cream ordered for ear lesion and culture report to be obtained from Dr. Burgess's office 06/15: Patient is sitting up at the edge of the bed, he denies any chest pain, shortness breath, he has no coughing, headache, he has no abdominal pain, nausea , vomiting, diarrhea. He is tolerating his Zosyn very well without any evidence of any side effects, his left foot appeared better today we bijan reevaluate in the next 24 hours. Objective - Vital Signs Vital signs: Vital Signs Temp 96.4 F L 06/15/16 07:00 Pulse 62 06/15/16 07:00 Resp 16 06/15/16 07:00 BP 122/75 06/15/16 07:00 Pulse Ox 97 06/15/16 07:00 Intake & Output 06/14/16 06/15/16 06/15/16 18:59 06:59 18:59 Intake Total 1500 440 Balance 1500 440 Intake: Intake, IV Titration 300 Amount Piperacillin-Tazobactam 3 50 .375 gm In Dextrose/Water 1 50ml.bag @ 12.5 mls/hr IVPB Q8H [facility] Rx#: [id number] Vancomycin 1,250 mg In 250 Sodium Chloride 0.9% 250 ml @ 125 mls/hr IVPB DAILY@0000,1200 [facility] Rx#: [id number] Oral 1200 440 Other: Voiding Method Toilet # Voids 3 1 - Exam - Exam General appearance: cooperative, no acute distress - EENT Eyes: no abnormal pupil, anicteric sclerae, no disc margins sharp, no edentulous , EOMI, PERRLA, no fundus normal, no photophobia, no dentition normal, no poor dentition, no ptosis, no scleral icterus, no normal appearance ENT: hearing grossly normal, NA/AT - Neck Neck: no lymphadenopathy, normal ROM, no other, no rigidity, no stridor, no thyromegaly - Respiratory Respiratory: bilateral: CTA, negative: diminished, dullness, rales, rhonchi, wheezing, prolonged expiration, prolonged inspiration - Gastrointestinal General gastrointestinal: normal bowel sounds, soft - Integumentary Integumentary: normal, normal turgor, rash (right foot web 2-3.3-4.4-5 macerated white debris, left toes 2-3. 3-4.4-5 with red maceration drainage and odor, right ear lobe red excoriated all lesions with pinpoint papulomatous eruptions) - Neurologic Neurologic: CNII-XII intact - Musculoskeletal Musculoskeletal: gait normal, strength equal bilaterally - Psychiatric Psychiatric: A&O x's 3, appropriate affect, intact judgment & insight - Labs CBC & Chem 7: 06/13/16 09:22 06/13/16 09:22 Assessment and Plan Plan: Assessment and Plan Plan: 1. bilateral foot cellulitis involving bilateral toes worse on left more than right with secondary bacterial infection suspected, underlying fungal infection. Continue IV abx, diflucan, local wound care. Dr. Monroy following. 2. right earlobe rash, fungal appearance vs eczema. lamisil ointment to be applied and culture to be obtained from Dr. Burgess's office 3. tobacco dependence, pt decline nicotine patches 4. vte prophylaxis with lovenox 40 daily 5. Awaiting the final result of the cultures, continue Zosyn for now, continue local wound care, follow-up with the result tomorrow morning and possibly home in the next 48 hours.
[2016-06-15] MEDS: FLUCONAZOLE 100 MG TAB PO SCH (20:37)
[2016-06-16] MEDS: VANCOMYCIN 1,250 MG in SODIUM CHLORIDE 0.9% 250 ML IVPB SCH ×2 (00:38→12:15)
[2016-06-16] MEDS: PIPERACILLIN-TAZOBACTAM 3.375 GM in DEXTROSE/WATER 1 50ML.BAG IVPB SCH ×3 (05:44→21:39)
[2016-06-16] MEDS: TERBINAFINE 1% CREAM 15 GM TUBE TOPICAL SCH ×2 (08:08→21:40)
[2016-06-16 09:35] LABS: Basophils # (A) 0.1 k/uL (0-0.2); Basophils % (A) 1 %; CH 32.1; CHCM 32.8; Eosinophils # (A) 0.4 k/uL (0-0.7); Eosinophils % (A) 4 %; HCT 47.5 % (39.0-53.0); HDW 2.38; HGB 15.2 gm/dL (13.0-17.5); Luc # (Auto) 0.27; Luc % (Auto) 3; Lymphocytes # (A) 1.9 k/uL (1.0-4.8); Lymphocytes % (A) 21 %; MCH 31.5 pg (25.0-35.0); MCV 98.4 fL (80.0-100.0); Mean Platelet Volume 7.6; Monocytes # (A) 0.8 k/uL (0-1.0); Monocytes % (A) 9 %; Neutrophils # (A) 5.5 k/uL (1.3-7.7); Neutrophils % (A) 62 %; RBC 4.83 m/uL (4.30-5.90); RDW 13.5 % (11.5-15.5); WBC 8.8 k/uL (3.8-10.6); WBC (Perox) 9.26
[2016-06-16] MEDS: HYDROmorphone 1 MG/ML 1 ML SYRINGE IV PRN (09:48)
[2016-06-16 10:10] LABS: Anion Gap 13 mmol/L; Calcium 9.2 mg/dL (8.4-10.2); Carbon Dioxide 18 mmol/L (22-30); Chloride 110 mmol/L (98-107); Glucose 143 mg/dL (74-99); Non-African American GFR(MDRD) >60 (>60 ml/min/1.73 sqM); Sodium 141 mmol/L (137-145); Total Bilirubin 0.6 mg/dL (0.2-1.3); Total Protein 6.6 g/dL (6.3-8.2)
[2016-06-16 10:51] LABS: AST 30 U/L (17-59); Blood Urea Nitrogen 12 mg/dL (9-20); Potassium 4.8 mmol/L (3.5-5.1)
[2016-06-16 10:52] LABS: ALT 34 U/L (21-72); Alkaline Phosphatase 58 U/L (38-126)
[2016-06-16] MEDS: ALPRAZolam 0.25 MG TAB PO PRN ×2 (11:00→21:39)
--- NOTE | 2016-06-16 14:29 | P.PN ---
Progress Note - Text Please see the actual note.
--- NOTE | 2016-06-16 14:31 | P.PN ---
Subjective This is a pleasant 61 year old gentleman patient of Dr Wilson, he is healthy except for tobacco dependence. He had troubles with the webs between his toes for the paat 2 mos that it started denuding with maceration and itchiness and it had gotten worse that the skin between the web of the toes #3,4 ,5 had peeled off, gotten red nd hd significant pain and drainage. he did not seek any consultation or prior treatment from any urgent care or OTC meds. He was seen in the ER for cellulitis compounded by an initially what is suspected as tinea pedis now with secondary bacterial infection. 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 He is currently treated with IV cefazolin, consults with Dr Monroy, and cultures were obtained in ER. 06/13: Patient has been followed by Dr. Monroy with recommendations to continue Zosyn, vancomycin, Diflucan and Opticell dressing. Wound culture is in process. Pre-albumin 24. White count currently 11.8. 06/14: wound culture is currently reported as gram-negative bacilli. Patient states pain to his foot is somewhat improved today. Lamisil cream ordered for ear lesion and culture report to be obtained from Dr. Burgess's office 06/15: Patient is sitting up at the edge of the bed, he denies any chest pain, shortness breath, he has no coughing, headache, he has no abdominal pain, nausea , vomiting, diarrhea. He is tolerating his Zosyn very well without any evidence of any side effects, his left foot appeared better today we bijan reevaluate in the next 24 hours. 06/16: Patient is doing better today however he is getting more anxious about leaving home, he continues to have some pain in the left foot, however there is better granulation tissue on the dorsal and the solar aspect of the foot. I explained to the patient that this is important for the patient as an IV antibiotic for at least 1 or 2 days prior to the switched to oral antibiotic and continue with current local care. Objective - Vital Signs Vital signs: Vital Signs Temp 98.3 F 06/16/16 07:00 Pulse 62 06/15/16 23:00 Resp 16 06/16/16 07:00 BP 177/80 06/16/16 07:00 Pulse Ox 98 06/16/16 07:00 Intake & Output 06/15/16 06/16/16 06/16/16 18:59 06:59 18:59 Intake Total 300 Balance 300 Intake: Oral 300 Other: Voiding Method Toilet # Voids 1 1 1 - Exam - Exam General appearance: cooperative, no acute distress - EENT Eyes: no abnormal pupil, anicteric sclerae, no disc margins sharp, no edentulous , EOMI, PERRLA, no fundus normal, no photophobia, no dentition normal, no poor dentition, no ptosis, no scleral icterus, no normal appearance ENT: hearing grossly normal, NA/AT - Neck Neck: no lymphadenopathy, normal ROM, no other, no rigidity, no stridor, no thyromegaly - Respiratory Respiratory: bilateral: CTA, negative: diminished, dullness, rales, rhonchi, wheezing, prolonged expiration, prolonged inspiration - Gastrointestinal General gastrointestinal: normal bowel sounds, soft - Integumentary Integumentary: normal, normal turgor, rash (right foot web 2-3.3-4.4-5 macerated white debris, left toes 2-3. 3-4.4-5 with red maceration drainage and odor, right ear lobe red excoriated all lesions with pinpoint papulomatous eruptions) - Neurologic Neurologic: CNII-XII intact - Musculoskeletal Musculoskeletal: gait normal, strength equal bilaterally - Psychiatric Psychiatric: A&O x's 3, appropriate affect, intact judgment & insight - Labs CBC & Chem 7: 06/16/16 08:48 06/16/16 08:48 Labs: Abnormal Lab Results - Last 24 Hours (Table) 06/16/16 Range/Units 08:48 Chloride 110 H (98-107) mmol/L Carbon Dioxide 18 L (22-30) mmol/L Glucose 143 H (74-99) mg/dL Assessment and Plan Plan: Assessment and Plan Plan: 1. bilateral foot cellulitis involving bilateral toes worse on left more than right with secondary bacterial infection suspected, underlying fungal infection. Continue IV abx, diflucan, local wound care. Dr. Monroy following. 2. right earlobe rash, fungal appearance vs eczema. lamisil ointment to be applied and culture to be obtained from Dr. Burgess's office 3. tobacco dependence, pt decline nicotine patches 4. vte prophylaxis with lovenox 40 daily 5. Awaiting the final result of the cultures, continue Zosyn for now, continue local wound care, follow-up with the result tomorrow morning and possibly home in the next 48 hours. 5. Final cultures are back and the pancreas sensitive to the antibiotic will continue with current management for at least next 48 hours prior to the switch to oral antibiotic continue local skin care as well.
--- NOTE | 2016-06-16 17:59 | P.PN ---
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 The patient relates for the last couple of months she's been having difficulties with what he thought was athlete's foot to the left foot and a bit also to the right. He's been treating it with multiple medications including topical antifungals. He did have treatment from podiatry with [place] soaks. He relates has been some waxing and waning to the status but is now acutely worse. His become much more moist and foul in odor. Because of his time in the was concerned about foot loss. He relates he is less afraid of both Rockets than he is of the current process to his foot which is why he is seeking care. Relates a processes become very uncomfortable but usually is very resistant to pain. He does not believe he has had fever, chills or rigors. He does not feel well overall. Quite unhappy about being in the hospital. Does not like a slow pace of cultures and local care. Fortunately the culture data his become available. A polymicrobial infection was found pseudomonas, strep, and MSSA. . This helps him understand the extensive nature of his infection. He is able to see when the dressing change occurs that he has full-thickness tissue loss and with the discomfort understands need for ongoing care. Objective - Vital Signs Vital signs: Vital Signs Temp 97.7 F 06/16/16 15:00 Pulse 65 06/16/16 15:00 Resp 16 06/16/16 15:00 BP 154/80 06/16/16 15:00 Pulse Ox 96 06/16/16 15:00 Intake & Output 06/15/16 06/16/16 06/16/16 18:59 06:59 18:59 Intake Total 300 Balance 300 Intake: Oral 300 Other: Voiding Method Toilet # Voids 1 1 2 - Exam 61-year-old male a thin muscular build is uncomfortable due to the pain and discomfort to his left foot. Is also having some anxiety related to the foot. HEENT: Anicteric conjunctiva are pink and moist nasal mucosa grossly intact without significant lesions, there is no thrush. Neck: The neck is supple without significant lymphadenopathy or thyromegaly. Lungs: Good bilateral air entry without significant crackles or wheezing. There is no significant bronchial sounds. There is no egophony or dullness. Heart: Regular rate and rhythm with an audible S1-S2, no S3 no S4. There is no significant murmur click or rub, PMI was nondisplaced. Abdomen: Positive bowel sounds soft and nontender without palpable masses or organomegaly. There was no guarding or rebound. Extremities: The upper extremities have excellent pulses they are symmetric, no significant petechiae or telangiectasia. No splinter hemorrhages were noted. The right foot shows evidence of some mild yakelin infection of the interspace of the toes Left foot shows evidence of the extensive ulceration of the skin over all the toes especially 2 through 5. Plantar surfaces full-thickness loss dorsal surfaces partial-thickness loss. There is drainage and improvement of the odor , erythema and tenderness. Swelling of the foot is now resolved. The foot is warm to touch. Peripheral pulses 2+ and symmetric. Neuro: Awake alert oriented to person place and time. There are no acute new gross focal sensory motor deficits. - Labs CBC & Chem 7: 06/16/16 08:48 06/16/16 08:48 Labs: Abnormal Lab Results - Last 24 Hours (Table) 06/16/16 Range/Units 08:48 Chloride 110 H (98-107) mmol/L Carbon Dioxide 18 L (22-30) mmol/L Glucose 143 H (74-99) mg/dL Laboratory Results WBC 8.8 k/uL (3.8-10.6) 06/16/16 08:48 RBC 4.83 m/uL (4.30-5.90) 06/16/16 08:48 Hgb 15.2 gm/dL (13.0-17.5) 06/16/16 08:48 Hct 47.5 % (39.0-53.0) 06/16/16 08:48 MCV 98.4 fL (80.0-100.0) 06/16/16 08:48 MCH 31.5 pg (25.0-35.0) 06/16/16 08:48 MCHC 32.0 g/dL (31.0-37.0) 06/16/16 08:48 RDW 13.5 % (11.5-15.5) 06/16/16 08:48 Plt Count 288 k/uL (150-450) 06/16/16 08:48 Neutrophils % 62 % 06/16/16 08:48 Lymphocytes % 21 % 06/16/16 08:48 Monocytes % 9 % 06/16/16 08:48 Eosinophils % 4 % 06/16/16 08:48 Basophils % 1 % 06/16/16 08:48 Neutrophils # 5.5 k/uL (1.3-7.7) 06/16/16 08:48 Lymphocytes # 1.9 k/uL (1.0-4.8) 06/16/16 08:48 Monocytes # 0.8 k/uL (0-1.0) 06/16/16 08:48 Eosinophils # 0.4 k/uL (0-0.7) 06/16/16 08:48 Basophils # 0.1 k/uL (0-0.2) 06/16/16 08:48 ESR 5 mm/hr (0-15) 06/13/16 09:22 Sodium 141 mmol/L (137-145) 06/16/16 08:48 Potassium 4.8 mmol/L (3.5-5.1) 06/16/16 08:48 Chloride 110 mmol/L (98-107) H 06/16/16 08:48 Carbon Dioxide 18 mmol/L (22-30) L 06/16/16 08:48 Anion Gap 13 mmol/L 06/16/16 08:48 BUN 12 mg/dL (9-20) 06/16/16 08:48 Creatinine 0.90 mg/dL (0.66-1.25) 06/16/16 08:48 Est GFR (MDRD) Af Amer >60 (>60 ml/min/1.73 sqM) 06/16/16 08:48 Est GFR (MDRD) Non-Af >60 (>60 ml/min/1.73 sqM) 06/16/16 08:48 Glucose 143 mg/dL (74-99) H 06/16/16 08:48 Calcium 9.2 mg/dL (8.4-10.2) 06/16/16 08:48 Total Bilirubin 0.6 mg/dL (0.2-1.3) 06/16/16 08:48 AST 30 U/L (17-59) 06/16/16 08:48 ALT 34 U/L (21-72) 06/16/16 08:48 Alkaline Phosphatase 58 U/L (38-126) 06/16/16 08:48 Total Protein 6.6 g/dL (6.3-8.2) 06/16/16 08:48 Albumin 3.8 g/dL (3.5-5.0) 06/16/16 08:48 Prealbumin 24 mg/dL (18-36) 06/13/16 09:22 Vancomycin Trough 11.8 ug/mL 06/14/16 22:25 Microbiology 06/12/16 13:40 Blood Blood Culture - Preliminary No Growth after 96 hours 06/12/16 13:40 Toe - Left Fourth Gram Stain - Final 06/12/16 13:40 Toe - Left Fourth Wound Culture - Final Pseudomonas aeruginosa Beta Hemolytic Strep Group C Staphylococcus aureus Arterial Doppler with normal [facility] Assessment and Plan (1) Failure of outpatient treatment Narrative/Plan: Very pleasant 61 year old male presents to Hospital with significant worsening of the skin problems to the left foot at the toes. He thought he was having significant fungal problems. Was treating that accordingly. Despite [place] soaks and topical antifungal therapy he was not improving. He did seek care at his primary care physician office and was directly sent to hospital for admission. As noted there is an extensive cellulitis with some full thickness tissue loss over toes 234 and 5 especially on the plantar surface. It is tender and very uncomfortable. There is sustained odor and drainage. Cultures of been obtained. Leukocytosis is noted. Pain control with Dilaudid as been per the primary care physician and seems to be effective. Local wound care will will be with the Opticell silver which is tolerating very well. His it's not sticking in his having less pain. Antimicrobial therapy with Zosyn, vancomycin and Diflucan Which will be continued now that we have pulmonary culture data with Pseudomonas , Streptococcus, and staph aureus not MRSA at this time. Plain x-ray failed to reveal evidence of significant abnormalities. Patient is a smoker, but the foot feels warm and well perfused. Arterial Dopplers reveal evidence of normal [facility] Patient's daughter is present for the discussion. The culture is finalized. The patient will need outpatient intravenous antibiotic therapy with Zosyn. PICC line will be placed. We will make arrangements for the antibiotic therapy. Status: Acute (2) Cellulitis of foot, left Status: Acute (3) Leukocytosis Status: Acute (4) Pain in left foot Status: Acute
[2016-06-16] MEDS: FLUCONAZOLE 100 MG TAB PO SCH (21:39)
[2016-06-17] MEDS: PIPERACILLIN-TAZOBACTAM 3.375 GM in DEXTROSE/WATER 1 50ML.BAG IVPB SCH ×2 (05:31→12:32)
[2016-06-17] MEDS ORDERED: ENOXAPARIN 40 MG/0.4 ML SYRINGE SQ SCH (09:00)
[2016-06-17 09:11] VITALS: BP 147/87; PULSE 71; RESP 19; TEMP 97.9
[2016-06-17 09:20] LABS: Basophils # (A) 0.1 k/uL (0-0.2); Basophils % (A) 1 %; CH 32.3; CHCM 33.8; Eosinophils # (A) 0.3 k/uL (0-0.7); Eosinophils % (A) 3 %; HCT 48.2 % (39.0-53.0); HDW 2.39; HGB 15.9 gm/dL (13.0-17.5); Luc # (Auto) 0.21; Luc % (Auto) 2; Lymphocytes # (A) 1.8 k/uL (1.0-4.8); Lymphocytes % (A) 20 %; MCH 31.6 pg (25.0-35.0); MCV 95.9 fL (80.0-100.0); Mean Platelet Volume 7.5; Monocytes # (A) 0.8 k/uL (0-1.0); Monocytes % (A) 9 %; Neutrophils # (A) 5.6 k/uL (1.3-7.7); Neutrophils % (A) 64 %; RBC 5.02 m/uL (4.30-5.90); RDW 13.5 % (11.5-15.5); WBC 8.7 k/uL (3.8-10.6); WBC (Perox) 9.34
[2016-06-17 09:30] LABS: ALT 32 U/L (21-72); AST 27 U/L (17-59); Alkaline Phosphatase 64 U/L (38-126); Anion Gap 10 mmol/L; Blood Urea Nitrogen 13 mg/dL (9-20); Calcium 9.3 mg/dL (8.4-10.2); Carbon Dioxide 22 mmol/L (22-30); Chloride 109 mmol/L (98-107); Glucose 121 mg/dL (74-99); Non-African American GFR(MDRD) >60 (>60 ml/min/1.73 sqM); Potassium 4.7 mmol/L (3.5-5.1); Sodium 141 mmol/L (137-145); Total Bilirubin 0.5 mg/dL (0.2-1.3); Total Protein 6.6 g/dL (6.3-8.2)
[2016-06-17] MEDS: ALPRAZolam 0.25 MG TAB PO PRN (11:31)
--- NOTE | 2016-06-17 13:43 | IR ---
EXAMINATION TYPE: IR cvc insert >=5 years DATE OF EXAM: 06/17/2016 1:18 PM COMPARISON: NONE CLINICAL HISTORY: Infection Needs long-term intravenous access for antibiotics. PROCEDURE: After informed consent, the skin overlying the right basilic vein was localized with ultrasound and n oted to be compressible and patent. An ultrasound image was obtained and submitted on the patient's chart. The overlying skin was prepped and draped and Lidocaine was used for local anesthesia. A ski n chidi was made with a scalpel. Access was gained to the vein under ultrasound guidance with a 21 ga uge needle and a 0.018 inch wire was advanced. Access site was dilated with Peel-Away sheath and cat heter tailored to the appropriate length and advanced such that the distal tip is at the cavoatrial j unction. Spot image was obtained verifying placement. Catheter was fixed to the skin with suture an d a sterile dressing was placed following hemostasis. Catheter was aspirated and flushed with saline . Patient was discharged in stable condition without complication. Maximal barrier technique is util ized. Ultrasound image is documented on the chart. Ultrasound used with sterile technique. Fluoro time and fluoroscopic images submitted to document procedure: 0.4 minutes fluoroscopy time, 60 intraoperative C-arm images document the procedure IMPRESSION: STATUS POST ULTRASOUND AND FLUOROSCOPIC GUIDED PICC LINE PLACEMENT, READY FOR USE. THIS PROCEDURE WAS PERFORMED BY THE UNDERSIGNED.
[2016-06-17] MEDS: TERBINAFINE 1% CREAM 15 GM TUBE TOPICAL SCH (14:50)
--- NOTE | 2016-06-18 08:07 | P.DS ---
Providers Date of admission: 06/12/16 14:46 Expected date of discharge: 06/17/16 Attending physician: Adriana Smith Primary care physician: [facility]oc [facility] Course: This is a pleasant 61 year old gentleman patient of Dr Wilson, he is healthy except for tobacco dependence. He had troubles with the webs between his toes for the paat 2 mos that it started denuding with maceration and itchiness and it had gotten worse that the skin between the web of the toes #3,4 ,5 had peeled off, gotten red nd hd significant pain and drainage. he did not seek any consultation or prior treatment from any urgent care or OTC meds. He was seen in the ER for cellulitis compounded by an initially what is suspected as tinea pedis now with secondary bacterial infection. 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 He is currently treated with IV cefazolin, consults with Dr Monroy, and cultures were obtained in ER. 06/13: Patient has been followed by Dr. Monroy with recommendations to continue Zosyn, vancomycin, Diflucan and Opticell dressing. Wound culture is in process. Pre-albumin 24. White count currently 11.8. 06/14: wound culture is currently reported as gram-negative bacilli. Patient states pain to his foot is somewhat improved today. Lamisil cream ordered for ear lesion and culture report to be obtained from Dr. Burgess's office 06/15: Patient is sitting up at the edge of the bed, he denies any chest pain, shortness breath, he has no coughing, headache, he has no abdominal pain, nausea , vomiting, diarrhea. He is tolerating his Zosyn very well without any evidence of any side effects, his left foot appeared better today we bijan reevaluate in the next 24 hours. 06/16: Patient is doing better today however he is getting more anxious about leaving home, he continues to have some pain in the left foot, however there is better granulation tissue on the dorsal and the solar aspect of the foot. I explained to the patient that this is important for the patient as an IV antibiotic for at least 1 or 2 days prior to the switched to oral antibiotic and continue with current local care. 06/17: Dr. Monroy has recommended Zosyn for another 2 weeks as an outpatient. Case management has set up home care. Patient will be discharged home once all arrangements are completed. Discharge diagnoses: 1. bilateral foot cellulitis involving bilateral toes worse on left more than right with secondary bacterial infection suspected, underlying fungal infection. 2. right earlobe rash, fungal appearance vs eczema. 3. tobacco dependence, pt decline nicotine patches Discharge plan: Home with [facility] Impression and plan of care have been directed as dictated by the signing physician. Agnes Durbin nurse practitioner acting as scribe for signing physician. Cc: Dr. Cuauhtemoc Wilson Patient Condition at Discharge: Good Plan - Discharge Summary New Discharge Prescriptions: Fluconazole [Diflucan] 200 mg PO Q24H #14 tab Piperacillin-Tazobactam [Zosyn] 3.375 gm IVPB Q6H #56 bag Discharge Medication List Naproxen Sodium [Aleve] 440 mg PO BID PRN 06/12/16 [History] Fluconazole [Diflucan] 200 mg PO Q24H #14 tab 06/17/16 [Rx] Piperacillin-Tazobactam [Zosyn] 3.375 gm IVPB Q6H #56 bag 06/17/16 [Rx] Follow up Appointment(s)/Referral(s): Сергей Monroy MD [STAFF PHYSICIAN] - 1 Week ([facility] will call you with a appt. time and date. ) [facility], [NON-STAFF] - As Needed Cuauhtemoc Wilson DO [Primary Care Provider] - 1 Week (Office not available at this time. Please call to set up appt.) Ambulatory/Diagnostic Orders: Basic Metabolic Panel [LAB.AMB] Location: Determined By Patient Complete Blood Count w/diff [LAB.AMB] Location: Determined By Patient Patient Instructions/Handouts: Cellulitis (DC) Activity/Diet/Wound Care/Special Instructions: Active Infusion: #[phone] No smoking, cessation information given. Regular diet. Left foot wound care: clean daily and cover with opticell silver, kerlix and alvin wrap. Discharge Disposition: HOME SELF-CARE
--- NOTE | 2016-06-19 12:50 | P.ARTDOP ---
Arterial Doppler LOWER EXTREMITY ARTERIAL DOPPLER: DATE OF SERVICE: 06/13/2016 Reason for study: Left foot ulcer. Doppler waveforms: Multiphasic throughout on the right. Multiphasic throughout on the left but somewhat blunted distally. Pulse volume recording: Normal configuration. Pressure gradients: None. Ankle-brachial indices: Greater than 1 bilaterally. Toe pressures: 169 on the right, 140 on the left Impression: Normal study.
== END 2016-06-17 15:42 | disposition home health service (06) | DRG 603 ==
LOC: EC 11:15 → 4MS4W 14:46
PROVIDERS: ADMIT Family Medicine; ATTEND Family Medicine
PROC: B44HZZZ Ultrasonography of Bilateral Lower Extremity Arteries (ICD-10-PCS; 2016-06-13)
PROC: 02HV33Z Insertion of Infusion Device into Superior Vena Cava, Percutaneous Approach (ICD-10-PCS; principal; 2016-06-17 10:45)
DX: L03.116 Cellulitis of left lower limb (principal); B96.5 Pseudomonas (aeruginosa) (mallei) (pseudomallei) as the cause of diseases classified elsewhere; B35.3 Tinea pedis; D72.829 Elevated white blood cell count, unspecified; B35.4 Tinea corporis; B95.5 Unspecified streptococcus as the cause of diseases classified elsewhere; L03.115 Cellulitis of right lower limb; B95.61 Methicillin susceptible Staphylococcus aureus infection as the cause of diseases classified elsewhere; F06.4 Anxiety disorder due to known physiological condition; M79.672 Pain in left foot; F17.200 Nicotine dependence, unspecified, uncomplicated; Z71.6 Tobacco abuse counseling; Z87.828 Personal history of other (healed) physical injury and trauma
CPT/HCPCS: 36415; 36569; 76937; 77001; 80053; 80202; 84134; 85025; 85652; 87040; 87070; 87077; 87186; 87205; 93923; 96365; 96375; 99285

== ENCOUNTER 2016-07-10 12:19 | Day surgery (SDC) | payer OTHER ==
[~2016-07-10 12:19] MED LIST: Pre Op ABX Message 1 EACH MISC MISCELLANE ONE
[2016-07-10] MEDS ORDERED: LACTATED RINGERS 1,000 ML IV SCH (12:43)
[2016-07-10] MEDS ORDERED: ONDANSETRON 4 MG/2 ML VIAL IVP ONE (12:43)
[2016-07-10] MEDS ORDERED: DEXAMETHASONE SOD PHOSPHATE 10 MG/ML 1 ML VIAL IV ONE (12:43)
[2016-07-10] MEDS ORDERED: MIDAZOLAM 2 MG/2 ML VIAL IV PRN (12:43)
[2016-07-10] MEDS ORDERED: SCOPOLAMINE 1.5MG/72HR PATCH TRANSDERM ONE (12:43)
[2016-07-10] MEDS ORDERED: LIDOCAINE 1% 20 ML VIAL (10MG/ML) FOR IV START INTRADERMA PRN (12:43)
--- NOTE | 2016-07-10 13:02 | P.PN ---
Progress Note - Text Please refer to Dr. Monroy history and physical dated 07/01/2016. Patient is admitted today for debridement of the left foot under anesthesia. He will follow up in the wound center with Dr. Monroy on Friday. He will continue with Opticel silver dressings.
[2016-07-10] MEDS ORDERED: MIDAZOLAM 2 MG/2 ML VIAL ONE (13:05)
[2016-07-10] MEDS ORDERED: PROPOFOL 10 MG/ML 20 ML VIAL IV ONE (13:05)
[2016-07-10] MEDS ORDERED: fentaNYL (PF) 50 MCG/ML 2 ML AMP ONE (13:05)
[2016-07-10] MEDS: HYDROmorphone 1 MG/ML 1 ML SYRINGE IVP PRN ×4 (13:37→13:55)
[2016-07-10 13:58] VITALS: RESP 18
[2016-07-10] MEDS ORDERED: MEPERIDINE 50 MG/ML SYRINGE IVP ONE ×2 (14:05→14:30)
[2016-07-10 14:17] VITALS: TEMP 97
--- NOTE | 2016-07-10 15:24 | P.WCPCN ---
Wound Ctr Selective Debridemen Date of service: 07/10/2016 Surgeon: Helene Pre-and postop diagnosis: Ulceration distal left foot Type of debridement: selective Ulcer location distal left foot surrounding the distal foot and all of his toes Anesthesia: 2% lidocaine gel applied to the ulcer Signs of infection: Redness throughout with large amounts of necrotic tissue Extent of necrotic, devitalized or non-viable tissue: Necrotic tissue with areas of redundant epidermis Other material in the wound that is expected to inhibit healing or promote adjacent tissue breakdown: Same Degree of epithelialization: % Method and instrument: Surgical debridement with sharp curette Character of the wound after debridement: Clean bloody dermal layer Description of tissue removed: [place] of soft tissue and epidermis Pre-debridement measurement: The entire distal foot was involved and all of the toes Postoperative debridement measurement: The measurements did not change Control of bleeding:Bleeding was easily controlled with saline moistened gauze and light pressure Post debridement dressing: Opticel silver Patient tolerated procedure well
[2016-07-10] MEDS ORDERED: ALPRAZolam 0.25 MG TAB PO PRN (15:25)
[2016-07-10] MEDS ORDERED: HYDROcodone/APAP 7.5-325MG 1 EACH TAB PO PRN (15:25)
[2016-07-10] MEDS ORDERED: HYDROcodone/APAP 7.5-325MG 1 EACH TAB PO ONE (15:30)
[2016-07-10] MEDS ORDERED: PIPERACILLIN-TAZOBACTAM 3.375 GM VIAL IVPB SCH (15:30)
[2016-07-10 16:16] VITALS: BP 158/90; PULSE 78
== END 2016-07-10 16:27 | disposition home or self-care (01) ==
LOC: OR 12:19
PROVIDERS: ATTEND Thoracic Surgery (Cardiothoracic Vascular Surgery)
DX: L97.529 Non-pressure chronic ulcer of other part of left foot with unspecified severity (principal); L03.116 Cellulitis of left lower limb; F41.9 Anxiety disorder, unspecified; Z87.891 Personal history of nicotine dependence; Z79.2 Long term (current) use of antibiotics
CPT/HCPCS: 87070; 87205; 87075; 87077; 87186; 97597; J2250; J1100; J2175; J2405; J3010; J1170; J2704

== ENCOUNTER 2017-07-02 23:29 | Inpatient (IN) | payer OTHER ==
[2017-07-02] MEDS ORDERED: SODIUM CHLORIDE 0.9% 1,000 ML IV STA (23:31)
[2017-07-02] MEDS ORDERED: NALOXONE 0.4 MG/ML 10 ML VIAL IVP STA (23:37)
[2017-07-02] MEDS ORDERED: ONDANSETRON 4 MG/2 ML VIAL IVP STA (23:37)
--- NOTE | 2017-07-02 23:37 | ED ---
General Adult HPI - General Stated complaint: ETOH Time Seen by Provider: 07/02/17 23:30 Source: RN notes reviewed, old records reviewed - History of Present Illness Initial comments: This is a 8-year-old male the ER for evaluation of altered mental state. Patient was found. Patient mildly arousable but poor historian unable to give accurate history. History is obtained by EMS patient's outpatient Tylenol 5 hours ago, she became concerned when he did not come the house later. Patient has no history of EtOH, was found with suicidal - Related Data Previous Rx's Medication Instructions Recorded traMADol HCL [Ultram] 100 mg PO Q6HR PRN #60 tab 08/26/16 Allergies Allergy/AdvReac Type Severity Reaction Status Date / Time No Known Allergies Allergy Verified 08/26/16 11:18 Review of Systems ROS Statement: Those systems with pertinent positive or pertinent negative responses have been documented in the HPI. ROS Other: All systems not noted in ROS Statement are negative. Past Medical History Past Medical History: No Reported History Additional Past Medical History / Comment(s): wound to lt. foot x 3 mo History of Any Multi-Drug Resistant Organisms: None Reported Past Surgical History: Orthopedic Surgery Additional Past Surgical History / Comment(s): rt ankle arthroscopy, "inj in back" Past Anesthesia/Blood Transfusion Reactions: No Reported Reaction Smoking Status: Former smoker - Past Family History Father Additional Family Medical History / Comment(s): back/knee sx Mother Family Medical History: No Reported History Brother(s) Family Medical History: No Reported History Sister(s) Family Medical History: No Reported History General Exam Limitations: altered mental status General appearance: alert, appears intoxicated, lethargic, in distress Head exam: Present: atraumatic, normocephalic, normal inspection Eye exam: Present: normal appearance, PERRL, EOMI. Absent: scleral icterus, conjunctival injection, periorbital swelling ENT exam: Present: normal exam, mucous membranes moist Neck exam: Present: normal inspection. Absent: tenderness, meningismus, lymphadenopathy Respiratory exam: Present: normal lung sounds bilaterally. Absent: respiratory distress, wheezes, rales, rhonchi, stridor Cardiovascular Exam: Present: regular rate, normal rhythm, normal heart sounds. Absent: systolic murmur, diastolic murmur, rubs, gallop, clicks GI/Abdominal exam: Present: soft, normal bowel sounds. Absent: distended, tenderness, guarding, rebound, rigid Extremities exam: Present: normal inspection, full ROM, normal capillary refill. Absent: tenderness, pedal edema, joint swelling, calf tenderness Back exam: Present: normal inspection Neurological exam: Present: alert, oriented X3, CN II-XII intact Psychiatric exam: Present: normal affect, normal mood Skin exam: Present: warm, dry, intact, normal color. Absent: rash Course Vital Signs 07/02/17 07/03/17 23:31 00:57 Temperature 93.5 F L 96.3 F L Pulse Rate 120 H 107 H Respiratory 18 16 Rate Blood Pressure 172/80 184/85 O2 Sat by Pulse 97 99 Oximetry EKG Findings - EKG Comments: EKG Findings:: EKG shows sinus tachycardia rate 1:15, SC 166, QRS 134, QTC 481 Procedures - Intubation Time Out Performed: Yes Sedative: Versed Paralytic: Succinylcholine Laryngoscope: Trey Size: 4 ET Tube Size: 7.5 ET Tube Uncuffed: Yes Tube Secured Location: teeth Tube Placement Confirmation: visualized tube passing through cords, equal breath sounds bilaterally, no breath sounds over epigastrium, confirmation by capnometry Patient Tolerated Procedure: well Intubation Complications: none Medical Decision Making - Lab Data Result diagrams: 07/02/17 23:44 07/03/17 00:30 Lab Results 07/02/17 07/02/17 07/02/17 Range/Units 23:44 23:44 23:44 WBC 14.0 H (3.8-10.6) k/uL RBC 5.15 (4.30-5.90) m/uL Hgb 16.2 (13.0-17.5) gm/dL Hct 49.4 (39.0-53.0) % MCV 96.0 (80.0-100.0) fL MCH 31.5 (25.0-35.0) pg MCHC 32.8 (31.0-37.0) g/dL RDW 13.1 (11.5-15.5) % Plt Count 268 (150-450) k/uL Neutrophils % 81 % Lymphocytes % 11 % Monocytes % 7 % Eosinophils % 0 % Basophils % 0 % Neutrophils # 11.3 H (1.3-7.7) k/uL Lymphocytes # 1.5 (1.0-4.8) k/uL Monocytes # 0.9 (0-1.0) k/uL Eosinophils # 0.0 (0-0.7) k/uL Basophils # 0.0 (0-0.2) k/uL PT (9.0-12.0) sec INR (<1.2) APTT (22.0-30.0) sec VBG pH 7.25 L (7.31-7.41) VBG pCO2 40 (37-51) mmHg VBG HCO3 17 L (24-28) mmol/L Carbon Monoxide, Quant (<10.0) % Sodium (137-145) mmol/L Potassium (3.5-5.1) mmol/L Chloride (98-107) mmol/L Carbon Dioxide (22-30) mmol/L Anion Gap mmol/L BUN (9-20) mg/dL Creatinine (0.66-1.25) mg/dL Est GFR (CKD-EPI)AfAm (>60 ml/min/1.73 sqM) Est GFR (CKD-EPI)NonAf (>60 ml/min/1.73 sqM) Glucose (74-99) mg/dL Plasma Lactic Acid Chao 2.5 H* (0.7-2.0) mmol/L Calcium (8.4-10.2) mg/dL Phosphorus (2.5-4.5) mg/dL Magnesium (1.6-2.3) mg/dL Total Bilirubin (0.2-1.3) mg/dL AST (17-59) U/L ALT (21-72) U/L Alkaline Phosphatase (38-126) U/L Ammonia 11 (<30) umol/L Total Protein (6.3-8.2) g/dL Albumin (3.5-5.0) g/dL Urine Color Urine Appearance (Clear) Urine pH (5.0-8.0) Ur Specific Burt (1.001-1.035) Urine Protein (Negative) Urine Glucose (UA) (Negative) Urine Ketones (Negative) Urine Blood (Negative) Urine Nitrite (Negative) Urine Bilirubin (Negative) Urine Urobilinogen (<2.0) mg/dL Ur Leukocyte Esterase (Negative) Urine RBC (0-5) /hpf Urine WBC (0-5) /hpf Ur Squamous Epith Cells (0-4) /hpf Hyaline Casts (0-2) /lpf Granular Casts (0) /lpf Urine Mucus (None) /hpf Salicylates mg/dL Urine Opiates Screen (NotDetected) Ur Oxycodone Screen (NotDetected) Urine Methadone Screen (NotDetected) Ur Propoxyphene Screen (NotDetected) Acetaminophen ug/mL Ur Barbiturates Screen (NotDetected) U Tricyclic Antidepress (NotDetected) Ur Phencyclidine Scrn (NotDetected) Ur Amphetamines Screen (NotDetected) U Methamphetamines Scrn (NotDetected) U Benzodiazepines Scrn (NotDetected) Urine Cocaine Screen (NotDetected) U Marijuana (THC) Screen (NotDetected) Serum Alcohol mg/dL 07/02/17 07/02/17 07/02/17 Range/Units 23:44 23:44 23:44 WBC (3.8-10.6) k/uL RBC (4.30-5.90) m/uL Hgb (13.0-17.5) gm/dL Hct (39.0-53.0) % MCV (80.0-100.0) fL MCH (25.0-35.0) pg MCHC (31.0-37.0) g/dL RDW (11.5-15.5) % Plt Count (150-450) k/uL Neutrophils % % Lymphocytes % % Monocytes % % Eosinophils % % Basophils % % Neutrophils # (1.3-7.7) k/uL Lymphocytes # (1.0-4.8) k/uL Monocytes # (0-1.0) k/uL Eosinophils # (0-0.7) k/uL Basophils # (0-0.2) k/uL PT 10.0 (9.0-12.0) sec INR 1.0 (<1.2) APTT 21.8 L (22.0-30.0) sec VBG pH (7.31-7.41) VBG pCO2 (37-51) mmHg VBG HCO3 (24-28) mmol/L Carbon Monoxide, Quant 4.0 (<10.0) % Sodium (137-145) mmol/L Potassium (3.5-5.1) mmol/L Chloride (98-107) mmol/L Carbon Dioxide (22-30) mmol/L Anion Gap mmol/L BUN (9-20) mg/dL Creatinine (0.66-1.25) mg/dL Est GFR (CKD-EPI)AfAm (>60 ml/min/1.73 sqM) Est GFR (CKD-EPI)NonAf (>60 ml/min/1.73 sqM) Glucose (74-99) mg/dL Plasma Lactic Acid Chao (0.7-2.0) mmol/L Calcium (8.4-10.2) mg/dL Phosphorus (2.5-4.5) mg/dL Magnesium (1.6-2.3) mg/dL Total Bilirubin (0.2-1.3) mg/dL AST (17-59) U/L ALT (21-72) U/L Alkaline Phosphatase (38-126) U/L Ammonia (<30) umol/L Total Protein (6.3-8.2) g/dL Albumin (3.5-5.0) g/dL Urine Color Yellow Urine Appearance Cloudy (Clear) Urine pH 5.0 (5.0-8.0) Ur Specific Burt 1.016 (1.001-1.035) Urine Protein 1+ H (Negative) Urine Glucose (UA) Negative (Negative) Urine Ketones Trace H (Negative) Urine Blood Trace H (Negative) Urine Nitrite Negative (Negative) Urine Bilirubin Negative (Negative) Urine Urobilinogen <2.0 (<2.0) mg/dL Ur Leukocyte Esterase Negative (Negative) Urine RBC 2 (0-5) /hpf Urine WBC 25 H (0-5) /hpf Ur Squamous Epith Cells 1 (0-4) /hpf Hyaline Casts 52 H (0-2) /lpf Granular Casts 62 (0) /lpf Urine Mucus Few H (None) /hpf Salicylates mg/dL Urine Opiates Screen Detected H (NotDetected) Ur Oxycodone Screen Not Detected (NotDetected) Urine Methadone Screen Not Detected (NotDetected) Ur Propoxyphene Screen Not Detected (NotDetected) Acetaminophen ug/mL Ur Barbiturates Screen Not Detected (NotDetected) U Tricyclic Antidepress Detected H (NotDetected) Ur Phencyclidine Scrn Not Detected (NotDetected) Ur Amphetamines Screen Not Detected (NotDetected) U Methamphetamines Scrn Not Detected (NotDetected) U Benzodiazepines Scrn Not Detected (NotDetected) Urine Cocaine Screen Not Detected (NotDetected) U Marijuana (THC) Screen Detected H (NotDetected) Serum Alcohol mg/dL 07/03/17 Range/Units 00:30 WBC (3.8-10.6) k/uL RBC (4.30-5.90) m/uL Hgb (13.0-17.5) gm/dL Hct (39.0-53.0) % MCV (80.0-100.0) fL MCH (25.0-35.0) pg MCHC (31.0-37.0) g/dL RDW (11.5-15.5) % Plt Count (150-450) k/uL Neutrophils % % Lymphocytes % % Monocytes % % Eosinophils % % Basophils % % Neutrophils # (1.3-7.7) k/uL Lymphocytes # (1.0-4.8) k/uL Monocytes # (0-1.0) k/uL Eosinophils # (0-0.7) k/uL Basophils # (0-0.2) k/uL PT (9.0-12.0) sec INR (<1.2) APTT (22.0-30.0) sec VBG pH (7.31-7.41) VBG pCO2 (37-51) mmHg VBG HCO3 (24-28) mmol/L Carbon Monoxide, Quant (<10.0) % Sodium 140 (137-145) mmol/L Potassium 4.7 (3.5-5.1) mmol/L Chloride 110 H (98-107) mmol/L Carbon Dioxide 17 L (22-30) mmol/L Anion Gap 13 mmol/L BUN 18 (9-20) mg/dL Creatinine 1.10 (0.66-1.25) mg/dL Est GFR (CKD-EPI)AfAm 84 (>60 ml/min/1.73 sqM) Est GFR (CKD-EPI)NonAf 73 (>60 ml/min/1.73 sqM) Glucose 136 H (74-99) mg/dL Plasma Lactic Acid Chao (0.7-2.0) mmol/L Calcium 7.9 L (8.4-10.2) mg/dL Phosphorus 6.1 H (2.5-4.5) mg/dL Magnesium 2.2 (1.6-2.3) mg/dL Total Bilirubin 0.4 (0.2-1.3) mg/dL AST 159 H (17-59) U/L ALT 83 H (21-72) U/L Alkaline Phosphatase 64 (38-126) U/L Ammonia (<30) umol/L Total Protein 6.2 L (6.3-8.2) g/dL Albumin 3.7 (3.5-5.0) g/dL Urine Color Urine Appearance (Clear) Urine pH (5.0-8.0) Ur Specific Burt (1.001-1.035) Urine Protein (Negative) Urine Glucose (UA) (Negative) Urine Ketones (Negative) Urine Blood (Negative) Urine Nitrite (Negative) Urine Bilirubin (Negative) Urine Urobilinogen (<2.0) mg/dL Ur Leukocyte Esterase (Negative) Urine RBC (0-5) /hpf Urine WBC (0-5) /hpf Ur Squamous Epith Cells (0-4) /hpf Hyaline Casts (0-2) /lpf Granular Casts (0) /lpf Urine Mucus (None) /hpf Salicylates <1.0 mg/dL Urine Opiates Screen (NotDetected) Ur Oxycodone Screen (NotDetected) Urine Methadone Screen (NotDetected) Ur Propoxyphene Screen (NotDetected) Acetaminophen 10.0 ug/mL Ur Barbiturates Screen (NotDetected) U Tricyclic Antidepress (NotDetected) Ur Phencyclidine Scrn (NotDetected) Ur Amphetamines Screen (NotDetected) U Methamphetamines Scrn (NotDetected) U Benzodiazepines Scrn (NotDetected) Urine Cocaine Screen (NotDetected) U Marijuana (THC) Screen (NotDetected) Serum Alcohol <10 mg/dL - Radiology Data Radiology results: report reviewed (CT brain C-spine negative for acute disease) , image reviewed Critical Care Time Critical Care Time: Yes Total Critical Care Time: 31 Disposition Clinical Impression: Overdose, Suicidal behavior, Altered mental state, Hypothermia Disposition: ADMITTED IP TO THIS HOSP Condition: Critical Referrals: Cuauhtemoc Wilson DO [Primary Care Provider] - 1-2 days
[2017-07-03 00:02] LABS: VBG PH 7.25 (7.31-7.41)
[2017-07-03 00:07] LABS: Appearance,Urine Cloudy (Clear); Bilirubin,Urine Negative (Negative); Blood,Urine Trace (Negative); Color,Urine Yellow; Glucose,Urine (UA) Negative (Negative); Granular Casts,Urine 62 /lpf (0); Hyaline Casts,Urine 52 /lpf (0-2); Ketones,Urine Trace (Negative); Leukocyte Esterase,Urine Negative (Negative); Mucus,Urine Few /hpf; Nitrite,Urine Negative (Negative); Protein,Urine 1+ (Negative); RBC,Urine 2 /hpf (0-5); Specific Gravity,Urine 1.016 (1.001-1.035); Squamous Epithelial Cell,Urine 1 /hpf (0-4); Urobilinogen,Urine <2.0 mg/dL (<2.0); WBC,Urine 25 /hpf (0-5)
[2017-07-03 00:15] LABS: Amphetamine Screen,Urine Not Detected (NotDetected); Barbiturate Screen,Urine Not Detected (NotDetected); Benzodiazepines Screen,Urine Not Detected (NotDetected); Cocaine Screen,Urine Not Detected (NotDetected); Methadone Screen, Urine Not Detected (NotDetected); Opiate Screen,Urine Detected (NotDetected); Oxycodone Screen, Urine Not Detected (NotDetected); Phencyclidine Screen,Urine Not Detected (NotDetected); Tricyclic Antidepressant,Urine Detected (NotDetected); Urn Cannabinoid Scrn Detected (NotDetected)
[2017-07-03 00:19] LABS: Basophils % (A) 0 %; Eosinophils % (A) 0 %; HCT 49.4 % (39.0-53.0); HGB 16.2 gm/dL (13.0-17.5); Lymphocytes # (A) 1.5 k/uL (1.0-4.8); Lymphocytes % (A) 11 %; MCH 31.5 pg (25.0-35.0); MCHC 32.8 g/dL (31.0-37.0); Mean Platelet Volume 8.5; Monocytes # (A) 0.9 k/uL (0-1.0); Monocytes % (A) 7 %; Neutrophils # (A) 11.3 k/uL (1.3-7.7); Neutrophils % (A) 81 %; Platelet Count 268 k/uL (150-450); RBC 5.15 m/uL (4.30-5.90); RDW 13.1 % (11.5-15.5)
[2017-07-03] MEDS ORDERED: SODIUM CHLORIDE 0.9% 1,000 ML IV STA ×2 (00:23)
[2017-07-03] MEDS ORDERED: SODIUM CHLORIDE 0.9% 500 ML IV STA (00:23)
[2017-07-03 00:45] LABS: Partial Thromboplastin Time 21.8 sec (22.0-30.0)
--- NOTE | 2017-07-03 00:47 | CT ---
EXAM: CT Head Without Intravenous Contrast CLINICAL HISTORY: pain TECHNIQUE: Axial computed tomography images of the head/brain without intravenous contrast. DLP is 1040.7 mGy-cm. This CT exam was performed using one or more of the following dose reduction techniques: automated exposure control, adjustment of the mA and/or kV according to patient size, and/or use of iterative reconstruction technique. COMPARISON: No relevant prior studies available. FINDINGS: Brain: Unremarkable. No hemorrhage. No significant white matter disease. No edema. Ventricles: Unremarkable. No ventriculomegaly. Bones/joints: Unremarkable. No acute fracture. Soft tissues: Unremarkable. Sinuses: Unremarkable as visualized. No acute sinusitis. Mastoid air cells: Unremarkable as visualized. No mastoid effusion. IMPRESSION: Normal head/brain CT. EXAM: CT cervical spine without contrast COMPARISON: CLINICAL HISTORY: pain TECHNIQUE: Axial computed tomography images of the cervical spine without intravenous contrast. DLP is 406.4 mGy-cm. This CT exam was performed using one or more of the following dose reduction techniques: automated exposure control, adjustment of the mA and/or kV according to patient size, and/or use of iterative reconstruction technique. COMPARISON: No relevant prior studies available. FINDINGS: No fracture or subluxations are noted. The vertebral body heights and alignment are preserved. No prevertebral soft tissue swelling. Note is made of multilevel cervical spondylosis with varying degrees of central canal and foramina stenoses. IMPRESSION: 1. No cervical fractures. 2. Cervical spondylosis with varying degrees of mild central canal and foramina stenoses.
[2017-07-03 00:54] LABS: ALT 83 U/L (21-72); AST 159 U/L (17-59); Albumin 3.7 g/dL (3.5-5.0); Alcohol <10 mg/dL; Alkaline Phosphatase 64 U/L (38-126); Anion Gap 13 mmol/L; Blood Urea Nitrogen 18 mg/dL (9-20); Calcium 7.9 mg/dL (8.4-10.2); Carbon Dioxide 17 mmol/L (22-30); Chloride 110 mmol/L (98-107); Glucose 136 mg/dL (74-99); Magnesium 2.2 mg/dL (1.6-2.3); Phosphorus 6.1 mg/dL (2.5-4.5); Potassium 4.7 mmol/L (3.5-5.1); Salicylate <1.0 mg/dL; Sodium 140 mmol/L (137-145); Total Bilirubin 0.4 mg/dL (0.2-1.3); Total Protein 6.2 g/dL (6.3-8.2)
[2017-07-03 01:00] LABS: Lactic Acid, Venous 2.5 mmol/L (0.7-2.0)
--- NOTE | 2017-07-03 01:02 | XR ---
EXAM: XR Chest, 1 View CLINICAL HISTORY: Weakness TECHNIQUE: Frontal view of the chest. COMPARISON: No relevant prior studies available. FINDINGS: Lungs: Unremarkable. No consolidation. Pleural space: Unremarkable. No pneumothorax. Heart: Unremarkable. No cardiomegaly. Mediastinum: Unremarkable. Bones/joints: Unremarkable. IMPRESSION: Unremarkable chest x-ray
[2017-07-03] MEDS ORDERED: PROPOFOL 1,000 MG in EMPTY BAG 1 BAG IV ONE (01:14)
[2017-07-03] MEDS ORDERED: DEXTROSE 5%-0.45% NACL 1,000 ML IV SCH (01:15)
[2017-07-03] MEDS ORDERED: NALOXONE 0.4 MG/ML 1 ML VIAL IV PRN (01:15)
[2017-07-03] MEDS ORDERED: SUCCINYLCHOLINE CHLORIDE VIAL 200 MG/10 ML VIAL IV STA (01:16)
[2017-07-03] MEDS ORDERED: MIDAZOLAM (PF) 1 MG/ML 5 ML VIAL IV STA (01:16)
[2017-07-03 01:18] LABS: Troponin I <0.012 ng/mL (0.000-0.034)
[2017-07-03 01:45] LABS: Creatine Kinase 19980 U/L (55-170); Creatine Kinase MB 51.6 ng/mL (0.0-2.4)
--- NOTE | 2017-07-03 01:50 | XR ---
EXAM: XR Chest, 1 View CLINICAL HISTORY: TECHNIQUE: Frontal view of the chest. COMPARISON: No relevant prior studies available. FINDINGS: Endotracheal tube is noted the tip probably 5 cm above the jori. There is an NG tube which passes below the diaphragm with distal tip appears to be within stomach. No evidence pneumothorax. IMPRESSION: NG tube in good position. Endotracheal tube approximate 5 cm above the jori
[2017-07-03 01:58] LABS: ABG Base Excess -8.7 mmol/L; ABG HCO3 18 mmol/L (21-25); ABG PCO2 41 mmHg (35-45); ABG PH 7.26 (7.35-7.45); ABG PO2 >400 mmHg (83-108); ABG TCO2 20 mmol/L (19-24)
[2017-07-03] MEDS: SODIUM CHLORIDE 0.9% 1,000 ML IV SCH ×4 (03:04→22:48)
[2017-07-03 03:44] LABS: Glucose,Whole Blood 92 mg/dL (75-99)
[2017-07-03] MEDS: PROPOFOL 1,000 MG in EMPTY BAG 1 BAG IV SCH ×3 (03:47→22:49)
[2017-07-03 04:46] LABS: Basophils % (A) 0 %; Eosinophils % (A) 0 %; HGB 14.2 gm/dL (13.0-17.5); Lymphocytes % (A) 8 %; MCH 31.3 pg (25.0-35.0); MCHC 32.3 g/dL (31.0-37.0); Mean Platelet Volume 7.7; Monocytes # (A) 1.3 k/uL (0-1.0); Monocytes % (A) 11 %; Neutrophils # (A) 9.4 k/uL (1.3-7.7); Neutrophils % (A) 79 %; Platelet Count 235 k/uL (150-450); RBC 4.54 m/uL (4.30-5.90); RDW 13.2 % (11.5-15.5); WBC 11.9 k/uL (3.8-10.6)
[2017-07-03 04:52] LABS: INR 1.1 (<1.2); Prothrombin Time 10.5 sec (9.0-12.0)
[2017-07-03 04:55] LABS: Anion Gap 8 mmol/L; Blood Urea Nitrogen 17 mg/dL (9-20); Calcium 7.4 mg/dL (8.4-10.2); Carbon Dioxide 19 mmol/L (22-30); Chloride 114 mmol/L (98-107); Glucose 92 mg/dL (74-99); Magnesium 2.1 mg/dL (1.6-2.3); Phosphorus 4.9 mg/dL (2.5-4.5); Sodium 141 mmol/L (137-145)
[2017-07-03 05:11] LABS: ABG Base Excess -7.8 mmol/L; ABG HCO3 19 mmol/L (21-25); ABG Oxygen Saturation 99.4 % (94-97); ABG PCO2 42 mmHg (35-45); ABG PH 7.27 (7.35-7.45); ABG PO2 193 mmHg (83-108); ABG TCO2 20 mmol/L (19-24)
--- NOTE | 2017-07-03 06:46 | XR ---
EXAMINATION TYPE: XR chest 1V DATE OF EXAM: 07/03/2017 CLINICAL HISTORY: Difficulty breathing progress study. TECHNIQUE: Single AP portable frontal view of the chest is obtained. COMPARISON: Chest x-ray from earlier today and older studies FINDINGS: An endotracheal tube and orogastric tube are stable in appearance. Cardiac silhouette size is stable and upper limits of normal. Lungs remain grossly clear without pleu ral effusion or pneumothorax seen bilaterally. Visualized osseous structures are intact. IMPRESSION: Overall stable findings, no suspicious acute pulmonary process.
[2017-07-03 06:48] LABS: Appearance,Urine Turbid (Clear); Bacteria,Urine Occasional /hpf; Bilirubin,Urine Negative (Negative); Blood,Urine Large (Negative); Color,Urine Red; Glucose,Urine (UA) Negative (Negative); Granular Casts,Urine 220 /lpf (0); Ketones,Urine 1+ (Negative); Leukocyte Esterase,Urine Negative (Negative); Mucus,Urine Many /hpf; Nitrite,Urine Negative (Negative); PH, Urine 5.5 (5.0-8.0); Protein,Urine 2+ (Negative); RBC,Urine 13 /hpf (0-5); Urobilinogen,Urine <2.0 mg/dL (<2.0); WBC,Urine 21 /hpf (0-5)
--- NOTE | 2017-07-03 08:32 | XR ---
EXAMINATION TYPE: XR chest 1V portable DATE OF EXAM: 07/03/2017 CLINICAL HISTORY: Difficulty breathing progress study. TECHNIQUE: Single AP portable upright view of the chest is obtained. COMPARISON: Chest x-ray from earlier today and older studies FINDINGS: There is redemonstration of endotracheal tube that has tip above aortic knob and below cla vicular margin on current study approximately 6 cm above the jori currently. Orogastric tube positi on is stable. Cardiac silhouette size is stable and within normal limits with atherosclerotic change in aortic knob . There is no suspicious focal airspace opacity, pleural effusion, or pneumothorax seen bilaterally. Osseous structures remain intact. IMPRESSION: Endotracheal and orogastric tubes remain satisfactory in position. No acute pulmonary pro cess is evident.
[2017-07-03] MEDS: CHLORHEXIDINE GLUCONATE 15 ML CUP MUCOUS MEM SCH ×2 (09:09→22:48)
[2017-07-03] MEDS: PANTOPRAZOLE 40 MG/10 ML VIAL IV SCH (09:09)
[2017-07-03] MEDS: ENOXAPARIN 40 MG/0.4 ML SYRINGE SQ SCH (09:09)
--- NOTE | 2017-07-03 09:24 | P.CNPUL ---
History of Present Illness Consult date: 07/03/17 Reason for consult: other Chief complaint: Suicide attempt History of present illness: Consult dated 07/03/2017 This is a 62-year-old male who was apparently found by his in a large. The patient was brought into the emergency room. Thought to be a suicide attempt. According to the ER physician, the patient cannot protect his airway. For that reason patient was intubated and mechanically ventilated. I was called by the ER physician and we talked about the patient and I did give the patient a bed here in the ICU. The patient was transferred up on July 02. He apparently had a drug screen that was positive for tricyclic antidepressants, opiates, and marijuana. Again this was thought to be an overdose. There is some history that there could be a possible poisoning with rapid recently. Anyway, the patient remains on the ventilator. He is on the volume assist control mode rate of 14 tidal volume is 500 FiO2 30% PEEP of 5. Arterial blood gases show a PaO2 of 193 pCO2 42 and a pH 7.26. Those blood gases were done on 50% in the FiO2 was turned down to 30. He is on a saline IV at 1 50 mL an hour and propofol at 25 mics per kilogram per minute. Chest x-ray looks relatively normal. His only known medication is tramadol. He has NO KNOWN DRUG ALLERGIES. Not much is known about his other medical history other than right ankle arthroscopy and some sort of wound to left foot for 3 months. Review of Systems ROS unobtainable: due to endotracheal tube Past Medical History Past Medical History: No Reported History Additional Past Medical History / Comment(s): wound to lt. foot x 3 mo History of Any Multi-Drug Resistant Organisms: None Reported Past Surgical History: Orthopedic Surgery Additional Past Surgical History / Comment(s): rt ankle arthroscopy, "inj in back" Past Anesthesia/Blood Transfusion Reactions: No Reported Reaction Smoking Status: Former smoker - Past Family History Father Additional Family Medical History / Comment(s): back/knee sx Mother Family Medical History: No Reported History Brother(s) Family Medical History: No Reported History Sister(s) Family Medical History: No Reported History Medications and Allergies Home Medications Medication Instructions Recorded Confirmed Type traMADol HCL [Ultram] 100 mg PO Q6HR PRN #60 tab 08/26/16 Rx Allergies Allergy/AdvReac Type Severity Reaction Status Date / Time No Known Allergies Allergy Verified 08/26/16 11:18 Physical Exam Osteopathic Statement: *. No significant issues noted on an osteopathic structural exam other than those noted in the History and Physical/Consult. Vitals: Vital Signs Temp Pulse Resp BP Pulse Ox 07/03/17 09:00 74 15 126/82 98 07/03/17 08:30 79 14 128/77 98 07/03/17 08:00 97.6 F 80 14 128/77 99 07/03/17 07:50 80 15 128/77 99 07/03/17 07:40 80 16 119/75 99 07/03/17 07:30 81 13 119/75 99 07/03/17 07:20 80 13 119/75 99 07/03/17 07:10 80 14 119/75 99 07/03/17 07:00 81 15 119/75 99 07/03/17 06:50 80 15 119/75 99 07/03/17 06:40 80 14 124/77 99 07/03/17 06:30 80 15 124/77 98 07/03/17 06:20 80 15 124/77 99 07/03/17 06:10 80 14 124/77 99 07/03/17 06:00 80 16 124/77 99 07/03/17 05:50 80 15 124/77 99 07/03/17 05:40 80 14 125/78 99 07/03/17 05:30 80 15 125/78 99 07/03/17 05:20 81 17 125/78 99 07/03/17 05:10 82 16 125/78 100 07/03/17 05:00 81 14 125/78 100 07/03/17 04:50 81 14 125/78 99 07/03/17 04:40 82 13 157/88 99 07/03/17 04:30 83 17 157/88 99 07/03/17 04:20 83 16 157/88 99 07/03/17 04:10 88 18 157/86 100 07/03/17 04:00 97.7 F 84 14 157/86 100 07/03/17 03:50 89 17 157/86 100 07/03/17 03:43 95 28 H 07/03/17 03:13 97.3 F L 84 16 115/86 98 07/03/17 03:08 86 16 126/76 98 07/03/17 03:03 97.3 F L 84 16 122/78 98 07/03/17 02:58 86 16 124/77 98 07/03/17 02:53 86 16 125/78 98 07/03/17 02:40 86 16 129/82 98 07/03/17 02:30 88 18 129/82 98 07/03/17 02:21 88 16 135/86 98 07/03/17 02:16 90 16 138/86 98 07/03/17 02:11 97.1 F L 96 16 152/86 07/03/17 02:07 92 16 166/88 99 07/03/17 02:05 94 16 170/88 99 07/03/17 01:48 92 16 160/88 99 07/03/17 01:43 94 16 167/90 99 07/03/17 01:38 98 16 173/83 99 07/03/17 01:35 96.9 F L 98 16 182/86 98 07/03/17 01:31 97.3 F L 102 H 16 178/95 99 07/03/17 00:57 96.3 F L 107 H 16 184/85 99 07/02/17 23:31 93.5 F L 120 H 18 172/80 97 Intake and Output 07/02/17 07/03/17 07/03/17 22:59 06:59 14:59 Intake Total 450 509.385 Output Total 500 130 Balance -50 379.385 Intake: IV 450 450 Sodium Chloride 0.9% 1, 450 450 000 ml @ 150 mls/hr IV . Q6H40M [facility] Rx#:[id number] Intake, IV Titration 59.385 Amount Propofol 1,000 mg In 59.385 Empty Bag 1 bag @ Titrate IV .Q0M [facility] Rx#: [id number] Output: Urine 400 130 Uretheral (Tong) 300 Emesis 100 Other: Voiding Method Indwelling Catheter Weight 73.936 kg No acute distress, sedated, orally placed endotracheal tube and NG tube noted. HEENT examination is grossly unremarkable. Endotracheal tube and NG tube noted. Neck supple. Full range of motion. No adenopathy. Cardiovascular examination reveals regular rhythm rate. S1-S2 normal. No S3- S4 or murmur. Lungs reveal few scattered rhonchi. No wheezes or crackles. Breath sounds are equal bilaterally. Abdomen soft bowel sounds are heard. No masses or tenderness Extremities are intact. No cyanosis, clubbing, or edema. Skin without rash. Neurologic examination cannot be assessed as patient is sedated. Results - Laboratory Findings CBC and BMP: 07/03/17 04:28 07/03/17 04:28 ABG ABG pH 7.27 (7.35-7.45) L 07/03/17 05:05 ABG pCO2 42 mmHg (35-45) 07/03/17 05:05 ABG pO2 193 mmHg (83-108) H 07/03/17 05:05 ABG O2 Saturation 99.4 % (94-97) H 07/03/17 05:05 PT/INR, D-dimer PT 10.5 sec (9.0-12.0) 07/03/17 04:39 INR 1.1 (<1.2) 07/03/17 04:39 Abnormal lab findings: Abnormal Labs 07/02/17 07/02/17 07/02/17 23:44 23:44 23:44 WBC 14.0 H Neutrophils # 11.3 H Monocytes # APTT ABG pH ABG pO2 ABG HCO3 ABG O2 Saturation VBG pH 7.25 L VBG HCO3 17 L Chloride Carbon Dioxide Glucose Plasma Lactic Acid Chao 2.5 H* Calcium Phosphorus AST ALT Total Creatine Kinase CK-MB (CK-2) Total Protein Urine Protein Urine Ketones Urine Blood Urine RBC Urine WBC Urine WBC Clumps Urine Bacteria Hyaline Casts Urine Mucus Urine Opiates Screen U Tricyclic Antidepress U Marijuana (THC) Screen 07/02/17 07/02/17 07/03/17 23:44 23:44 00:30 WBC Neutrophils # Monocytes # APTT 21.8 L ABG pH ABG pO2 ABG HCO3 ABG O2 Saturation VBG pH VBG HCO3 Chloride Carbon Dioxide Glucose Plasma Lactic Acid Chao Calcium Phosphorus AST ALT Total Creatine Kinase 39995 H CK-MB (CK-2) 51.6 H* Total Protein Urine Protein 1+ H Urine Ketones Trace H Urine Blood Trace H Urine RBC Urine WBC 25 H Urine WBC Clumps Urine Bacteria Hyaline Casts 52 H Urine Mucus Few H Urine Opiates Screen Detected H U Tricyclic Antidepress Detected H U Marijuana (THC) Screen Detected H 07/03/17 07/03/17 07/03/17 00:30 01:56 04:28 WBC 11.9 H Neutrophils # 9.4 H Monocytes # 1.3 H APTT ABG pH 7.26 L ABG pO2 >400 H ABG HCO3 18 L ABG O2 Saturation 100.0 H VBG pH VBG HCO3 Chloride 110 H Carbon Dioxide 17 L Glucose 136 H Plasma Lactic Acid Chao Calcium 7.9 L Phosphorus 6.1 H AST 159 H ALT 83 H Total Creatine Kinase CK-MB (CK-2) Total Protein 6.2 L Urine Protein Urine Ketones Urine Blood Urine RBC Urine WBC Urine WBC Clumps Urine Bacteria Hyaline Casts Urine Mucus Urine Opiates Screen U Tricyclic Antidepress U Marijuana (THC) Screen 07/03/17 07/03/17 07/03/17 04:28 05:05 06:30 WBC Neutrophils # Monocytes # APTT ABG pH 7.27 L ABG pO2 193 H ABG HCO3 19 L ABG O2 Saturation 99.4 H VBG pH VBG HCO3 Chloride 114 H Carbon Dioxide 19 L Glucose Plasma Lactic Acid Chao Calcium 7.4 L Phosphorus 4.9 H AST ALT Total Creatine Kinase CK-MB (CK-2) Total Protein Urine Protein 2+ H Urine Ketones 1+ H Urine Blood Large H Urine RBC 13 H Urine WBC 21 H Urine WBC Clumps Moderate H Urine Bacteria Occasional H Hyaline Casts Urine Mucus Many H Urine Opiates Screen U Tricyclic Antidepress U Marijuana (THC) Screen - Diagnostic Findings Chest x-ray: image reviewed (Labs x-rays a medications are reviewed.) Assessment and Plan Assessment: Assessment Respiratory failure, secondary to drug overdose, with requirement for intubation and mechanical ventilation Drug screen positive for tricyclic antidepressants, opiates, and THC. Possible suicide attempt No other major medical problems according to the medical history, which may be incomplete His alcohol and drug abuse. History of chronic tobacco use Plan: Plan dated 07/03/2017 The patient's sedation will be held. We'll see if we can't wake the patient up and evaluate him for a spontaneous breathing trial and whether or not he could be extubated. The patient did have a computed tomography scan of the brain which was negative. In electroencephalogram was ordered. We may end up starting him on tube feeds depending on his neurologic status. Additional recommendations and suggestions are forthcoming. Prognosis is guarded. He will need a psychiatric consultation as well as he gets extubated. Time with Patient: Greater than 30
--- NOTE | 2017-07-03 11:57 | P.HPIM ---
History of Present Illness H&P Date: 07/03/17 Chief Complaint: Unresponsive This is a 62-year-old male patient of Dr. Wilson with past medical history of hypertension, gastroesophageal reflux disease, tobacco use and dependence. Patient last saw Dr. Wilson last week at that time and blood pressure 186/100 there is question whether he receiving samples for blood pressure medicine from the office. He is gone therefore an employee physical. He has been prescribed [place] in the past and received 60 tablets on May 21 and previous to that it was February 26 for 60 tablets. Patient was seen by his in the morning around 11:00 and they had an argument. At 5:00 when she came home he was slumped in a chair in the crotch. She then went in the house and did not talk to him and assume that he left for work but later found him at around 9:30 still slumped in the crotch and 911 was called. Narcan was given by EMS and 2 doses of Narcan were given in the emergency center. He was intubated and started on fluid resuscitation. Patient was admitted to the intensive care unit. His white count was 14, lactic acid was 2.5 and repeat 0.7 , AST 159 and ALT 83, total CK was 19,980. Urinalysis was cloudy, nitrate and leukoesterase were negative positive hyalin cast. Urine drug screen was positive for opiates and tricyclic antidepressants and marijuana. Salicylate level acetaminophen and serum alcohol levels were negative. Initially venous blood gases were pH of 7.25, pCO2 of 40, bicarb 17, carbon dioxide 4. Chest x- ray was unremarkable. CT of the brain. CT of the cervical spine shows spondylosis and stenosis. Repeat chest x-ray done this morning shows no acute process. Patient has been afebrile, blood pressure is been on the higher side. EEG has been ordered an MRI of the brain. Consult in place for pulmonary medicine, neurology and psychiatry. Patient is currently off sedation with no response, no gag reflex. Review of Systems ROS unobtainable: due to mental status Past Medical History Past Medical History: No Reported History, GERD/Reflux, Hypertension Additional Past Medical History / Comment(s): wound to lt. foot x 3 mo History of Any Multi-Drug Resistant Organisms: None Reported Past Surgical History: Orthopedic Surgery Additional Past Surgical History / Comment(s): rt ankle arthroscopy, "inj in back" Past Anesthesia/Blood Transfusion Reactions: No Reported Reaction Smoking Status: Former smoker Additional Past Alcohol Use History / Comment(s): Patient is an active smoker started at age 20, 1 pack per day. He also smokes marijuana. - Past Family History Father Additional Family Medical History / Comment(s): back/knee sx Mother Family Medical History: No Reported History Brother(s) Family Medical History: No Reported History Sister(s) Family Medical History: No Reported History Medications and Allergies Home Medications Medication Instructions Recorded Confirmed Type No Known Home Medications [No 07/03/17 07/03/17 History Known Home Medications] Allergies Allergy/AdvReac Type Severity Reaction Status Date / Time No Known Allergies Allergy Verified 08/26/16 11:18 Physical Exam Vitals: Vital Signs Temp Pulse Resp BP Pulse Ox 07/03/17 11:00 82 14 184/92 98 07/03/17 10:00 76 15 167/87 99 07/03/17 09:00 74 15 126/82 98 07/03/17 08:30 79 14 128/77 98 07/03/17 08:00 97.6 F 80 14 128/77 99 07/03/17 07:50 80 15 128/77 99 07/03/17 07:40 80 16 119/75 99 07/03/17 07:30 81 13 119/75 99 07/03/17 07:20 80 13 119/75 99 07/03/17 07:10 80 14 119/75 99 07/03/17 07:00 81 15 119/75 99 07/03/17 06:50 80 15 119/75 99 07/03/17 06:40 80 14 124/77 99 07/03/17 06:30 80 15 124/77 98 07/03/17 06:20 80 15 124/77 99 07/03/17 06:10 80 14 124/77 99 07/03/17 06:00 80 16 124/77 99 07/03/17 05:50 80 15 124/77 99 07/03/17 05:40 80 14 125/78 99 07/03/17 05:30 80 15 125/78 99 07/03/17 05:20 81 17 125/78 99 07/03/17 05:10 82 16 125/78 100 07/03/17 05:00 81 14 125/78 100 07/03/17 04:50 81 14 125/78 99 07/03/17 04:40 82 13 157/88 99 07/03/17 04:30 83 17 157/88 99 07/03/17 04:20 83 16 157/88 99 07/03/17 04:10 88 18 157/86 100 07/03/17 04:00 97.7 F 84 14 157/86 100 07/03/17 03:50 89 17 157/86 100 07/03/17 03:43 95 28 H 07/03/17 03:13 97.3 F L 84 16 115/86 98 07/03/17 03:08 86 16 126/76 98 07/03/17 03:03 97.3 F L 84 16 122/78 98 07/03/17 02:58 86 16 124/77 98 07/03/17 02:53 86 16 125/78 98 07/03/17 02:40 86 16 129/82 98 07/03/17 02:30 88 18 129/82 98 07/03/17 02:21 88 16 135/86 98 07/03/17 02:16 90 16 138/86 98 07/03/17 02:11 97.1 F L 96 16 152/86 07/03/17 02:07 92 16 166/88 99 07/03/17 02:05 94 16 170/88 99 07/03/17 01:48 92 16 160/88 99 07/03/17 01:43 94 16 167/90 99 07/03/17 01:38 98 16 173/83 99 07/03/17 01:35 96.9 F L 98 16 182/86 98 07/03/17 01:31 97.3 F L 102 H 16 178/95 99 07/03/17 00:57 96.3 F L 107 H 16 184/85 99 07/02/17 23:31 93.5 F L 120 H 18 172/80 97 Intake and Output 07/02/17 07/03/17 07/03/17 22:59 06:59 14:59 Intake Total 450 810.725 Output Total 500 240 Balance -50 570.725 Intake: IV 450 750 Sodium Chloride 0.9% 1, 450 750 000 ml @ 150 mls/hr IV . Q6H40M [facility] Rx#:[id number] Intake, IV Titration 60.725 Amount Propofol 1,000 mg In 60.725 Empty Bag 1 bag @ Titrate IV .Q0M [facility] Rx#: [id number] Output: Urine 400 240 Uretheral (Tong) 300 Emesis 100 Other: Voiding Method Indwelling Catheter Weight 73.936 kg 73.936 kg Gen: This is a 62-year-old male patient. He is intubated and on mechanical ventilation in the intensive care unit appears to be comfortable. HEENT: Head is atraumatic, normocephalic. Pupils equal, round. Sclerae is anicteric. ETT and NG tube in place orally NECK: Supple. No JVD. No lymphadenopathy. No thyromegaly. LUNGS: Scattered rhonchi. No wheezes. No intercostal retractions. HEART: Regular rate and rhythm. No murmur. ABDOMEN: Soft. Bowel sounds are present. No masses. No tenderness. EXTREMITIES: No pedal edema. No calf tenderness. NEUROLOGICAL: Patient is unresponsive. Results CBC & Chem 7: 07/03/17 04:28 07/03/17 04:28 Labs: Abnormal Lab Results - Last 24 Hours (Table) 07/02/17 07/02/17 07/02/17 Range/Units 23:44 23:44 23:44 WBC 14.0 H (3.8-10.6) k/uL Neutrophils # 11.3 H (1.3-7.7) k/uL Monocytes # (0-1.0) k/uL APTT (22.0-30.0) sec ABG pH (7.35-7.45) ABG pO2 (83-108) mmHg ABG HCO3 (21-25) mmol/L ABG O2 Saturation (94-97) % VBG pH 7.25 L (7.31-7.41) VBG HCO3 17 L (24-28) mmol/L Chloride (98-107) mmol/L Carbon Dioxide (22-30) mmol/L Glucose (74-99) mg/dL Plasma Lactic Acid Chao 2.5 H* (0.7-2.0) mmol/L Calcium (8.4-10.2) mg/dL Phosphorus (2.5-4.5) mg/dL AST (17-59) U/L ALT (21-72) U/L Total Creatine Kinase (55-170) U/L CK-MB (CK-2) (0.0-2.4) ng/mL Total Protein (6.3-8.2) g/dL Urine Protein (Negative) Urine Ketones (Negative) Urine Blood (Negative) Urine RBC (0-5) /hpf Urine WBC (0-5) /hpf Urine WBC Clumps (None) /hpf Urine Bacteria (None) /hpf Hyaline Casts (0-2) /lpf Urine Mucus (None) /hpf Urine Opiates Screen (NotDetected) U Tricyclic Antidepress (NotDetected) U Marijuana (THC) Screen (NotDetected) 07/02/17 07/02/17 07/03/17 Range/Units 23:44 23:44 00:30 WBC (3.8-10.6) k/uL Neutrophils # (1.3-7.7) k/uL Monocytes # (0-1.0) k/uL APTT 21.8 L (22.0-30.0) sec ABG pH (7.35-7.45) ABG pO2 (83-108) mmHg ABG HCO3 (21-25) mmol/L ABG O2 Saturation (94-97) % VBG pH (7.31-7.41) VBG HCO3 (24-28) mmol/L Chloride (98-107) mmol/L Carbon Dioxide (22-30) mmol/L Glucose (74-99) mg/dL Plasma Lactic Acid Chao (0.7-2.0) mmol/L Calcium (8.4-10.2) mg/dL Phosphorus (2.5-4.5) mg/dL AST (17-59) U/L ALT (21-72) U/L Total Creatine Kinase 89494 H (55-170) U/L CK-MB (CK-2) 51.6 H* (0.0-2.4) ng/mL Total Protein (6.3-8.2) g/dL Urine Protein 1+ H (Negative) Urine Ketones Trace H (Negative) Urine Blood Trace H (Negative) Urine RBC (0-5) /hpf Urine WBC 25 H (0-5) /hpf Urine WBC Clumps (None) /hpf Urine Bacteria (None) /hpf Hyaline Casts 52 H (0-2) /lpf Urine Mucus Few H (None) /hpf Urine Opiates Screen Detected H (NotDetected) U Tricyclic Antidepress Detected H (NotDetected) U Marijuana (THC) Screen Detected H (NotDetected) 07/03/17 07/03/17 07/03/17 Range/Units 00:30 01:56 04:28 WBC 11.9 H (3.8-10.6) k/uL Neutrophils # 9.4 H (1.3-7.7) k/uL Monocytes # 1.3 H (0-1.0) k/uL APTT (22.0-30.0) sec ABG pH 7.26 L (7.35-7.45) ABG pO2 >400 H (83-108) mmHg ABG HCO3 18 L (21-25) mmol/L ABG O2 Saturation 100.0 H (94-97) % VBG pH (7.31-7.41) VBG HCO3 (24-28) mmol/L Chloride 110 H (98-107) mmol/L Carbon Dioxide 17 L (22-30) mmol/L Glucose 136 H (74-99) mg/dL Plasma Lactic Acid Chao (0.7-2.0) mmol/L Calcium 7.9 L (8.4-10.2) mg/dL Phosphorus 6.1 H (2.5-4.5) mg/dL AST 159 H (17-59) U/L ALT 83 H (21-72) U/L Total Creatine Kinase (55-170) U/L CK-MB (CK-2) (0.0-2.4) ng/mL Total Protein 6.2 L (6.3-8.2) g/dL Urine Protein (Negative) Urine Ketones (Negative) Urine Blood (Negative) Urine RBC (0-5) /hpf Urine WBC (0-5) /hpf Urine WBC Clumps (None) /hpf Urine Bacteria (None) /hpf Hyaline Casts (0-2) /lpf Urine Mucus (None) /hpf Urine Opiates Screen (NotDetected) U Tricyclic Antidepress (NotDetected) U Marijuana (THC) Screen (NotDetected) 07/03/17 07/03/17 07/03/17 Range/Units 04:28 05:05 06:30 WBC (3.8-10.6) k/uL Neutrophils # (1.3-7.7) k/uL Monocytes # (0-1.0) k/uL APTT (22.0-30.0) sec ABG pH 7.27 L (7.35-7.45) ABG pO2 193 H (83-108) mmHg ABG HCO3 19 L (21-25) mmol/L ABG O2 Saturation 99.4 H (94-97) % VBG pH (7.31-7.41) VBG HCO3 (24-28) mmol/L Chloride 114 H (98-107) mmol/L Carbon Dioxide 19 L (22-30) mmol/L Glucose (74-99) mg/dL Plasma Lactic Acid Chao (0.7-2.0) mmol/L Calcium 7.4 L (8.4-10.2) mg/dL Phosphorus 4.9 H (2.5-4.5) mg/dL AST (17-59) U/L ALT (21-72) U/L Total Creatine Kinase (55-170) U/L CK-MB (CK-2) (0.0-2.4) ng/mL Total Protein (6.3-8.2) g/dL Urine Protein 2+ H (Negative) Urine Ketones 1+ H (Negative) Urine Blood Large H (Negative) Urine RBC 13 H (0-5) /hpf Urine WBC 21 H (0-5) /hpf Urine WBC Clumps Moderate H (None) /hpf Urine Bacteria Occasional H (None) /hpf Hyaline Casts (0-2) /lpf Urine Mucus Many H (None) /hpf Urine Opiates Screen (NotDetected) U Tricyclic Antidepress (NotDetected) U Marijuana (THC) Screen (NotDetected) Microbiology - Last 24 Hours (Table) 07/02/17 23:44 Urine Culture - Preliminary Urine,Voided 07/03/17 04:55 Sputum Culture - Preliminary Sputum Thrombosis Risk Factor Assmnt - DVT/VTE Prophylaxis DVT/VTE Prophylaxis: Pharmacologic Prophylaxis ordered Assessment and Plan Plan: 1. Metabolic encephalopathy of unclear etiology, possible drug overdose. There was mention of rapid weight is in and also within the differential would be antifreeze ingestion. 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 Apparently suicide notes were left in the home but were suspicious. Psychiatric consult once patient is awake and off mechanical ventilation. Neurology consult. MRI of the brain, EEG, poison control to be contacted. Volatile screen, ethylene glycol to be checked. 2. Acute hypoxic respiratory failure requiring intubation and mechanical ventilation. Patient is being managed by Dr. Mcgee. 3. Rhabdomyolysis. IV fluids at 150 mL per hour. Repeat CK daily. 4. History of tobacco use and dependence. 5. History of gastroesophageal reflux disease and GI prophylaxis. Protonix. 6. History of hypertension. Monitor blood pressure closely. 7. DVT prophylaxis. Lovenox. Patient will be admitted to the hospital for a minimum of 3 night stay. Discharge plan: To be determined Impression and plan of care have been directed as dictated by the signing physician. Agnes Durbin nurse practitioner acting as scribe for signing physician.
[2017-07-03 13:26] LABS: Hemoglobin A1C 5.7 % (4.0-6.0)
[2017-07-03 16:14] LABS: Ethanol Negative (Negative); Isopropanol Negative (Negative)
[2017-07-03 16:18] LABS: Ethylene Glycol Negative (Negative)
--- NOTE | 2017-07-03 19:36 | EEG ---
ELECTROENCEPHALOGRAM REPORT DATE OF SERVICE: 07/03/2017 REASON FOR TESTING: Altered mental status. DESCRIPTION OF THE PROCEDURE: This EEG was performed using a 21-channel digital electroencephalograph, following international 10-20 system. DESCRIPTION OF THE RECORDING: From the beginning of the tracing, and with the patient's eyes closed, the background rhythm was mostly consisting of 6-7 Hz theta frequency in the posterior occipital leads. No obvious asymmetry is seen. Photic stimulation was performed with no driving response seen. No pathological waves were elicited. Hyperventilation was not performed. Occasional movement artifacts are seen. The patient remains awake throughout the tracing. No epileptiform discharges were seen. His EKG lead showed a regular rate and rhythm. INTERPRETATION: This awake EEG is abnormal due to the presence of generalized slowing of the background rhythm, mostly in the theta range. This is consistent with mild encephalopathy. No epileptiform discharges were seen. The absence of epileptiform discharges does not rule out the diagnosis of epilepsy; therefore clinical correlation is recommended. MMPETROS / TYRON: [id number] /
[2017-07-04 00:09] LABS: Glucose,Whole Blood 83 mg/dL (75-99)
[2017-07-04 05:16] LABS: Basophils % (A) 0 %; Eosinophils # (A) 0.1 k/uL (0-0.7); Eosinophils % (A) 1 %; HCT 41.2 % (39.0-53.0); Lymphocytes # (A) 1.1 k/uL (1.0-4.8); Lymphocytes % (A) 12 %; MCH 30.7 pg (25.0-35.0); MCHC 31.7 g/dL (31.0-37.0); MCV 96.9 fL (80.0-100.0); Monocytes # (A) 0.8 k/uL (0-1.0); Monocytes % (A) 9 %; Neutrophils # (A) 6.8 k/uL (1.3-7.7); Neutrophils % (A) 76 %; Platelet Count 212 k/uL (150-450); RBC 4.25 m/uL (4.30-5.90); RDW 13.4 % (11.5-15.5)
[2017-07-04 05:22] LABS: ABG Base Excess -4.1 mmol/L; ABG HCO3 21 mmol/L (21-25); ABG Oxygen Saturation 97.8 % (94-97); ABG PCO2 35 mmHg (35-45); ABG PH 7.39 (7.35-7.45); ABG PO2 91 mmHg (83-108); ABG TCO2 22 mmol/L (19-24)
[2017-07-04 05:32] LABS: ALT 129 U/L (21-72); AST 243 U/L (17-59); Albumin 2.4 g/dL (3.5-5.0); Alkaline Phosphatase 57 U/L (38-126); Anion Gap 4 mmol/L; Blood Urea Nitrogen 15 mg/dL (9-20); Calcium 7.8 mg/dL (8.4-10.2); Carbon Dioxide 23 mmol/L (22-30); Chloride 114 mmol/L (98-107); Glucose 91 mg/dL (74-99); Magnesium 2.2 mg/dL (1.6-2.3); Potassium 4.3 mmol/L (3.5-5.1); Sodium 141 mmol/L (137-145); Total Bilirubin 0.2 mg/dL (0.2-1.3); Total Protein 4.5 g/dL (6.3-8.2)
[2017-07-04] MEDS: SODIUM CHLORIDE 0.9% 1,000 ML IV SCH ×3 (06:12→21:59)
[2017-07-04 06:44] LABS: Prothrombin Time 9.5 sec (9.0-12.0)
[2017-07-04] MEDS: PROPOFOL 1,000 MG in EMPTY BAG 1 BAG IV SCH (07:10)
--- NOTE | 2017-07-04 07:20 | XR ---
EXAMINATION TYPE: XR chest 1V portable DATE OF EXAM: 07/04/2017 HISTORY: Shortness of breath. COMPARISON: None. TECHNIQUE: Single view of the chest is submitted. FINDINGS: Endotracheal and NG tubes are appropriately placed and unchanged in position. Demonstrated are scattered senescent parenchymal change. There is no evidence for focal infiltrate. The heart is stable. Hilar and mediastinal structures are within normal limits. Degenerative changes are seen of the dorsal spine. IMPRESSION: 1. Chronic changes without evidence for acute pulmonary disease.
[2017-07-04 07:29] LABS: Creatine Kinase 18151 U/L (55-170)
[2017-07-04] MEDS: PANTOPRAZOLE 40 MG/10 ML VIAL IV SCH (08:28)
[2017-07-04] MEDS: CHLORHEXIDINE GLUCONATE 15 ML CUP MUCOUS MEM SCH (08:28)
[2017-07-04] MEDS: ENOXAPARIN 40 MG/0.4 ML SYRINGE SQ SCH (08:28)
--- NOTE | 2017-07-04 09:14 | P.PN ---
Subjective Progress Note Date: 07/04/17 Principal diagnosis: Drug overdose, respiratory failure Progress note dated 07/04/2017 8-year-old male who was admitted apparently found by his in the garage. The patient was brought into the emergency room. His apparently passed out on the garage floor. He was initially thought to be a suicide attempt although there may be something else going on here. Anyway according to the emergency physician, the patient cannot protect his airway for that reason he was intubated and placed on mechanical ventilator. The patient had a drug screen that was positive for TCAs, marijuana, and opiates. Anyway, yesterday, we did a daily interruption of sedation. He wasn't ready for extubation. He was sedated. All. Currently, he seems to be doing a bit better. Bit more stable. Chest x-ray looks good. No acute infiltrates. He's on the assist control mode rate of 14 tidal volume 500 FiO2 30% PEEP of 5. Arterial blood gases show pO2 of 91 pCO2 35 and a pH of 7.38. This consistent with a mixed acid-base disturbance including a mild respiratory alkalosis and a mild metabolic acidosis. In addition, he is on propofol at 45 mics per kilogram per minute a saline IV at 150 mL now her and vital high protein at 30 with a goal of 45. Today, we'll place him on PSV 5 CPAP of 5 to some weaning parameters do a cuff leak and see if he is ready for extubation. Objective - Vital Signs Vital signs: Vital Signs Temp 97.9 F 07/04/17 08:00 Pulse 73 07/04/17 09:00 Resp 26 H 07/04/17 09:00 BP 150/87 07/04/17 09:00 Pulse Ox 98 07/04/17 09:00 Intake & Output 07/03/17 07/04/17 07/04/17 18:59 06:59 18:59 Intake Total 4090.125 5279.613 632.685 Output Total 880 760 155 Balance 8601.380 9646.613 477.685 Weight 73.9 kg 71.5 kg Intake: IV 1800 1800 450 Sodium Chloride 0.9% 1, 1800 1800 450 000 ml @ 150 mls/hr IV . Q6H40M [facility] Rx#:[id number] Intake, IV Titration 69.592 84.613 92.685 Amount Propofol 1,000 mg In 69.592 84.613 92.685 Empty Bag 1 bag @ Titrate IV .Q0M [facility] Rx#: [id number] Tube Feeding 60 375 60 Other 90 30 Output: Urine 680 760 155 Emesis 200 Other: Voiding Method Indwelling Catheter Indwelling Catheter # Bowel Movements 0 - Exam No acute distress, awake, with an orally placed endotracheal tube and NG tube. HEENT examination is grossly unremarkable. Mucous membranes are moist. Neck supple. Full range of motion. No adenopathy thyromegaly or neck vein distention. Cardiovascular examination reveals regular rhythm rate. S1-S2 normal. No S3 or S4. No discernible murmur noted. Lungs reveal clear breath sounds. Her sounds are equal bilaterally. No adventitious lung sounds including wheezes rhonchi or crackles. Abdomen soft bowel sounds are heard. No masses or tenderness. Extremities are intact. No cyanosis clubbing or edema. Skin is without rash or lesion. Neurologic examination is difficult given the fact that he is on the ventilator. He does move all 4 extremities. - Labs CBC & Chem 7: 07/04/17 04:56 07/04/17 04:56 Labs: Abnormal Lab Results - Last 24 Hours (Table) 07/04/17 07/04/17 07/04/17 Range/Units 04:56 04:56 05:09 RBC 4.25 L (4.30-5.90) m/uL ABG O2 Saturation 97.8 H (94-97) % Chloride 114 H (98-107) mmol/L Calcium 7.8 L (8.4-10.2) mg/dL AST 243 H (17-59) U/L ALT 129 H (21-72) U/L Creatine Kinase 14441 H (55-170) U/L Total Protein 4.5 L (6.3-8.2) g/dL Albumin 2.4 L (3.5-5.0) g/dL Microbiology - Last 24 Hours (Table) 07/03/17 04:55 Gram Stain - Preliminary Sputum Sputum Culture - Preliminary 07/02/17 23:44 Urine Culture - Preliminary Urine,Voided Assessment and Plan Assessment: Assessment Respiratory failure, secondary to drug overdose, with requirement for intubation and mechanical ventilation Drug screen positive for tricyclic antidepressants, opiates, and THC. Possible suicide attempt No other major medical problems according to the medical history, which may be incomplete His alcohol and drug abuse. History of chronic tobacco use Plan: Plan dated 07/03/2017 The patient's sedation will be held. We'll see if we can't wake the patient up and evaluate him for a spontaneous breathing trial and whether or not he could be extubated. The patient did have a computed tomography scan of the brain which was negative. In electroencephalogram was ordered. We may end up starting him on tube feeds depending on his neurologic status. Additional recommendations and suggestions are forthcoming. Prognosis is guarded. He will need a psychiatric consultation as well as he gets extubated. Plan dated 07/04/2017 The patient will be given a daily interruption of sedation. The patient be placed on PSV 5 and CPAP of 5. We'll do some weaning parameters and a cuff leak. We will turn off his propofol and we'll turn off his tube feeds. If he is awake and alert and if he has good weaning parameters, he'll be extubated. Postextubation local having a psychiatric consultation. Additional recommendations and suggestions are forthcoming. Prognosis is guarded. Critical care time is 34 minutes Time with Patient: Greater than 30
[2017-07-04 09:33] VITALS: BMI 25.4
[2017-07-04] MEDS ORDERED: DEXAMETHASONE SOD PHOSPHATE 4 MG/ML 1 ML VIAL IV STA (09:41)
[2017-07-04] MEDS ORDERED: LIDOCAINE 2% (PF) 20 MG/ML 10 ML AMP INHALATION STA (09:47)
[2017-07-04] MEDS: IPRATROPIUM-ALBUTEROL 3 ML NEB INHALATION SCH ×3 (11:10→19:22)
[2017-07-04 11:54] LABS: Glucose,Whole Blood 87 mg/dL (75-99)
--- NOTE | 2017-07-04 14:32 | P.CN ---
Psychiatric Consult - . Consult date: 07/04/17 Consult:: 07/04/17 14:18 Identification: Patient is a 62-year-old male was brought to the emergency room by EMS after he was found unresponsive in his garage by his Reason for Consult: Overdose, suicide attempt History of Present Illness: Patient's chart was reviewed, I spoke with nursing staff the patient was seen and interviewed in his room no family members were present. Patient was apparently found by his unresponsive in the garage, she had apparently seen him earlier in the evening when she returned home from work around 5 PM, she thought he was intoxicated and passed out. Later that evening she realized that he had not left for work and went out to the garage and found them in the same position unresponsive and called EMS. Patient required intubation in the emergency room and was just extubated earlier this morning. When I asked the patient why he had taken an overdose he denied that he did stating that it was "none of my [employer] business". When I asked the patient about whether he had been feeling depressed or he been treated for depression in the past he stated now instead that if I continue to ask him questions "it would get ugly real quick". When I asked the patient if he had had an argument with his he told me that that was none of my dizziness, stated that he did not want to drag her into this. Patient stated that my questions were stupid that he did not want to respond to them. When I asked the patient if he had left suicide notes he stated that he may have and when I asked him if he wanted to he stated that he wishes he would have . Patient refused to respond to further questioning , stating that he did not need "that psychobabble". Past Psychiatric History: patient denied that he had ever been treated for any psychiatric disorder. Past Medical/Surgical History: patient denied any medical problems, per the chart patient has hypertension and GERD. Patient is also receiving hydrocodone from his primary care physician. Family History: unable to obtain as patient refuses to respond to questions Social History: patient states he is and has no children and last worked on Friday evening he would not respond to further questioning Substance Use History: patient states he drinks alcohol 1-2 beers but would not further elaborate and states he takes pain medication prescribed to him. Legal History: unable to obtain Mental status: Appearance/Attitude: Patient is lying in a hospital bed, no acute distress, throughout the interview he continued to look out the window and only rarely made eye contact and patient was not cooperative. Behavior: Patient did not display any psychomotor retardation but was irritated and angry when questioned. Speech/Language: Patient's speech was spontaneous he spoke in a soft volume and normal rhythm and was coherent. Thought Process: Patient responded to questions with brief answers mostly telling me that it was none of my business and he would not answer them. There is no evidence of loose association or flight of ideas. Thought Content: Patient did not appear to be responding to internal stimuli, patient did not cooperate fully with the interview to assess whether he was having any delusions or paranoid ideation. Suicidal/Homicidal Ideation: Patient stated that he did write suicide notes but it was none of my business why he had written them, and stated that he wished he was . Patient refused to answer whether he is currently feeling suicidal and refused to answer whether he was currently homicidal. Sensorium/Cognition: Patient is alert and oriented to person, situation and time and his recent and remote memory are grossly intact Mood/Affect: Patient is angry, irritable and his affect is slightly blunted Insight/Judgment: Patient's insight and judgment are impaired Assessment: Patient was found unresponsive and brought to the emergency room by EMS where he required intubation. Patient's UDS was positive for tricyclic antidepressants, opiates and marijuana. Patient states that he is prescribed pain medication and reviewing the [facility] he does have prescription recently filled on the May 22 for hydrocodone 10-325 #60 his prior prescription was filled on February 27 for numbers 90. Patient is not cooperative during the interview using profanity, refusing to answer most questions but did state that he did write suicide notes and had wished he would've . Patient would not elaborate further on issues were guarding his relationship with his , telling me that my questions were stupid and that he did not require any treatment. Patient did admit to using marijuana. Patient denied any prior psychiatric treatment. Diagnosis: Major depressive disorder, severe with suicide attempt Plan: a petition was completed by the police, patient does require inpatient psychiatric treatment as he stated that he wished he would've and admitted that he did write suicide notes. Patient has no prior psychiatric treatment per the patient. Patient is not agreeable to a voluntary admission and will have a first clinical certificate completed. When the patient is cleared medically please contact the emergency psychiatric services nurse to arrange for admission to the mental health unit. 07/04/17 14:54
--- NOTE | 2017-07-04 14:46 | P.PN ---
Subjective Progress Note Date: 07/04/17 Principal diagnosis: Intentional overdose This is a 62-year-old male patient of Dr. Wilson with past medical history of hypertension, gastroesophageal reflux disease, tobacco use and dependence. Patient last saw Dr. Wilson last week at that time and blood pressure 186/100 there is question whether he receiving samples for blood pressure medicine from the office. He is gone therefore an employee physical. He has been prescribed [place] in the past and received 60 tablets on May 21 and previous to that it was February 26 for 60 tablets. Patient was seen by his in the morning around 11:00 and they had an argument. At 5:00 when she came home he was slumped in a chair in the crotch. She then went in the house and did not talk to him and assume that he left for work but later found him at around 9:30 still slumped in the crotch and 911 was called. Narcan was given by EMS and 2 doses of Narcan were given in the emergency center. He was intubated and started on fluid resuscitation. Patient was admitted to the intensive care unit. His white count was 14, lactic acid was 2.5 and repeat 0.7 , AST 159 and ALT 83, total CK was 19,980. Urinalysis was cloudy, nitrate and leukoesterase were negative positive hyalin cast. Urine drug screen was positive for opiates and tricyclic antidepressants and marijuana. Salicylate level acetaminophen and serum alcohol levels were negative. Initially venous blood gases were pH of 7.25, pCO2 of 40, bicarb 17, carbon dioxide 4. Chest x- ray was unremarkable. CT of the brain. CT of the cervical spine shows spondylosis and stenosis. Repeat chest x-ray done this morning shows no acute process. Patient has been afebrile, blood pressure is been on the higher side. EEG has been ordered an MRI of the brain. Consult in place for pulmonary medicine, neurology and psychiatry. Patient is currently off sedation with no response, no gag reflex. 07/04 patient extubated today. Does not answer any questions. Would not talk about what medication he took. He does admit to suicidal ideation. Denies any shortness of breath or chest pain. Blood pressure 177/86 heart rate 90. Labs suggest increase in LFTs with increasing creatinine kinase 18,000. Patient will be transferred to inpatient psych once medically stable. Norvasc 5 initiated for blood pressure control continue IV fluids for rhabdomyolysis Objective - Vital Signs Vital signs: Vital Signs Temp 98.3 F 07/04/17 12:00 Pulse 109 H 07/04/17 14:00 Resp 17 07/04/17 14:00 BP 173/84 07/04/17 14:00 Pulse Ox 96 07/04/17 14:00 Intake & Output 07/03/17 07/04/17 07/04/17 18:59 06:59 18:59 Intake Total 9470.542 0217.613 1412.685 Output Total 880 760 900 Balance 3318.293 2355.613 512.685 Weight 73.9 kg 71.5 kg 71.5 kg Intake: IV 1800 1800 1200 Sodium Chloride 0.9% 1, 1800 1800 1200 000 ml @ 150 mls/hr IV . Q6H40M [facility] Rx#:[id number] Intake, IV Titration 69.592 84.613 92.685 Amount Propofol 1,000 mg In 69.592 84.613 92.685 Empty Bag 1 bag @ Titrate IV .Q0M [facility] Rx#: [id number] Tube Feeding 60 375 90 Other 90 30 Output: Urine 680 760 900 Emesis 200 Other: Voiding Method Indwelling Catheter Indwelling Catheter Indwelling Catheter # Bowel Movements 0 - Constitutional General appearance: Present: average body habitus, no acute distress. Absent: cooperative - EENT Eyes: Present: EOMI, PERRLA. Absent: photophobia, ptosis ENT: Present: hearing grossly normal, normal oropharynx Ears: bilateral: normal - Neck Neck: Present: normal ROM. Absent: lymphadenopathy Carotids: bilateral: upstroke normal - Respiratory Respiratory: bilateral: diminished, dullness, negative: rales, rhonchi, wheezing - Cardiovascular Rhythm: regular Heart sounds: normal: S1, S2 Abnormal Heart Sounds: Absent: systolic murmur, diastolic murmur, rub, S4 Gallop - Peripheral edema ankle Peripheral Edema: absent: None - Peripheral pulses dorsalis pedis Peripheral Pulses: bilateral: Normal - Gastrointestinal General gastrointestinal: Present: normal bowel sounds, soft. Absent: distended , tenderness - Integumentary Integumentary: Absent: calor, cellulitis, cyanotic, jaundiced - Neurologic Neurologic: Present: CNII-XII intact - Musculoskeletal Musculoskeletal: Present: generalized weakness, strength equal bilaterally - Psychiatric Psychiatric: Present: A&O x's 3, appropriate affect - Labs CBC & Chem 7: 07/04/17 04:56 07/04/17 04:56 Labs: Abnormal Lab Results - Last 24 Hours (Table) 07/04/17 07/04/17 07/04/17 Range/Units 04:56 04:56 05:09 RBC 4.25 L (4.30-5.90) m/uL ABG O2 Saturation 97.8 H (94-97) % Chloride 114 H (98-107) mmol/L Calcium 7.8 L (8.4-10.2) mg/dL AST 243 H (17-59) U/L ALT 129 H (21-72) U/L Creatine Kinase 84296 H (55-170) U/L Total Protein 4.5 L (6.3-8.2) g/dL Albumin 2.4 L (3.5-5.0) g/dL Microbiology - Last 24 Hours (Table) 07/03/17 04:55 Gram Stain - Preliminary Sputum Sputum Culture - Preliminary Assessment and Plan Plan: 1. Metabolic encephalopathy of unclear etiology, possible drug overdose. differential would be antifreeze ingestion. Serum osmolarity and measured osmolarity ordered. There is a pharmacy general manager investigation ongoing. Apparently suicide notes were left in the home but were suspicious. Psychiatric consult recommends inpatient rehab and medical history stable neurology consult. ethylene glycol to be checked. EEG pending 2. Acute hypoxic respiratory failure requiring intubation and mechanical ventilation. Extubated on 07/04 currently on 2 L of oxygenation saturating well Patient is being managed by Dr. Mcgee. 3. Rhabdomyolysis. IV fluids at 150 mL per hour. Repeat CK daily. 4. History of tobacco use and dependence. 5. History of gastroesophageal reflux disease and GI prophylaxis. Protonix. 6. History of hypertension. Monitor blood pressure closely. 7. DVT prophylaxis. Lovenox.
[2017-07-04] MEDS: amLODIPine 5 MG TAB PO SCH (15:30)
[2017-07-04 17:57] LABS: Glucose,Whole Blood 108 mg/dL (75-99)
--- NOTE | 2017-07-04 19:03 | P.CNNES ---
History of Present Illness Consult date: 07/04/17 Requesting physician: Purvi Ellington Reason for Consult: Altered mental status History of Present Illness: Patient is a 62-year-old male who is being evaluated by the neurology service on 07/04/2017 per the request of Dr. Ellington for altered mental status. Patient does have history of chronic pain, hypertension, GERD, and tobacco use. Patient received [place] for pain from a physician in patient states he thinks he took too many. Patient and his were together in the morning and had an argument. came home later in the afternoon and found patient slumped in the chair in the garage. The assumed possibly he was drinking and fell asleep. She came out hours later and found him in the sitting position and called 911. Narcan was given by EMS. Patient reached [facility] emergency room and he was immediately intubated and started on fluid resuscitation. Patient continues to be in the ICU. On admission patient vital signs were temperature 93.5, pulse rate 120, respiratory rate 18, blood pressure 172/80, and O2 sat of 97% on 2 L nasal cannula. Labs on admission revealed WBC is 14.0 RBC 5.1 and a global and 16.2 with hematocrit 49.4. Plasma lactic acid was 2.5, calcium 7.9, phosphorus 6.1, elevated liver enzymes , and total creatinine kinase of 19,980. CKMB elevated at 51.6. Urine drug screen was positive for opiates, tricyclic antidepressants, and marijuana. Computed tomography scan of the brain was done and was unremarkable. CT of the cervical spine revealed no cervical fractures. EEG was abnormal due to presence of slowing of the background rhythm. This is consistent with mild encephalopathy. Patient had been on sedation which may be contributing to this. Patient is now extubated. At the time of my evaluation, patient is resting comfortably in bed and appears to be in no acute distress. Review of Systems REVIEW OF SYSTEMS: Otherwise unremarkable and noncontributory. Past Medical History Past Medical History: No Reported History, GERD/Reflux, Hypertension Additional Past Medical History / Comment(s): wound to lt. foot x 3 mo History of Any Multi-Drug Resistant Organisms: None Reported Past Surgical History: Orthopedic Surgery Additional Past Surgical History / Comment(s): rt ankle arthroscopy, "inj in back" Past Anesthesia/Blood Transfusion Reactions: No Reported Reaction Smoking Status: Former smoker Additional Past Alcohol Use History / Comment(s): Patient is an active smoker started at age 20, 1 pack per day. He also smokes marijuana. - Past Family History Father Additional Family Medical History / Comment(s): back/knee sx Mother Family Medical History: No Reported History Brother(s) Family Medical History: No Reported History Sister(s) Family Medical History: No Reported History Medications and Allergies Home Medications Medication Instructions Recorded Confirmed Type No Known Home Medications [No 07/03/17 07/03/17 History Known Home Medications] Allergies Allergy/AdvReac Type Severity Reaction Status Date / Time No Known Allergies Allergy Verified 08/26/16 11:18 Physical Examination - Vital Signs Vital Signs: Vital Signs Temp Pulse Resp BP Pulse Ox 07/04/17 18:00 106 H 24 159/77 96 07/04/17 17:00 110 H 18 163/71 94 L 07/04/17 16:00 98.7 F 108 H 17 164/81 94 L 07/04/17 15:47 112 H 07/04/17 15:34 106 H 07/04/17 15:00 106 H 20 177/91 95 07/04/17 14:00 109 H 17 173/84 96 07/04/17 13:00 93 19 174/83 95 07/04/17 12:00 98.3 F 90 22 177/86 96 07/04/17 11:25 86 07/04/17 11:12 83 07/04/17 11:00 83 19 179/91 96 07/04/17 10:00 85 33 H 175/85 100 07/04/17 09:50 88 07/04/17 09:00 73 26 H 150/87 98 07/04/17 08:00 97.9 F 68 17 127/77 98 07/04/17 07:00 69 16 137/85 99 07/04/17 06:00 69 16 133/80 98 07/04/17 05:00 65 15 133/82 98 07/04/17 04:00 97.6 F 66 16 127/80 98 07/04/17 03:00 63 15 160/96 94 L 07/04/17 02:00 68 16 140/80 99 07/04/17 01:00 71 16 120/76 98 07/04/17 00:00 97.6 F 71 14 115/73 98 07/03/17 23:06 73 15 148/89 98 07/03/17 23:00 72 14 148/89 98 07/03/17 22:00 77 14 138/86 98 07/03/17 21:00 78 14 124/79 98 07/03/17 20:00 98.0 F 81 14 136/81 95 07/03/17 19:00 77 14 148/87 97 Intake and Output 07/04/17 07/04/17 07/04/17 06:59 14:59 22:59 Intake Total 1545 1412.685 600 Output Total 460 900 550 Balance 1085 512.685 50 Intake: IV 1200 1200 600 Sodium Chloride 0.9% 1, 1200 1200 600 000 ml @ 150 mls/hr IV . Q6H40M [facility] Rx#:[id number] Intake, IV Titration 92.685 Amount Propofol 1,000 mg In 92.685 Empty Bag 1 bag @ Titrate IV .Q0M [facility] Rx#: [id number] Tube Feeding 285 90 Other 60 30 Output: Urine 460 900 550 Other: Voiding Method Indwelling Catheter Indwelling Catheter Indwelling Catheter # Bowel Movements 0 Weight 71.5 kg 71.5 kg PHYSICAL EXAM: GENERAL APPEARANCE: Patient is a well-developed, male who appears to be in no acute distress. HEENT: Normocephalic, atraumatic, no facial asymmetry is seen. Neck is supple with no masses felt. CARDIOVASCULAR: Regular rate and rhythm. ABDOMEN: Nontender, nondistended. EXTREMITIES: Show no edema or clubbing. NEUROLOGICAL EXAM: Patient is awake, alert, and oriented 3. Speech and language are normal. Strength is full in all 4 extremities. Sensory exam to light touch is normal in all 4 extremities. No facial asymmetry is seen on cranial nerve testing. Mild intentional tremors noted. No seizure activity is seen. Results - Laboratory Findings CBC and BMP: 07/04/17 04:56 07/04/17 04:56 Abnormal Lab Findings: Abnormal Labs 07/02/17 07/02/17 07/02/17 23:44 23:44 23:44 WBC 14.0 H RBC Neutrophils # 11.3 H Monocytes # APTT ABG pH ABG pO2 ABG HCO3 ABG O2 Saturation VBG pH 7.25 L VBG HCO3 17 L Chloride Carbon Dioxide Glucose POC Glucose (mg/dL) Plasma Lactic Acid Chao 2.5 H* Calcium Phosphorus AST ALT Creatine Kinase Total Creatine Kinase CK-MB (CK-2) Total Protein Albumin Urine Protein Urine Ketones Urine Blood Urine RBC Urine WBC Urine WBC Clumps Urine Bacteria Hyaline Casts Urine Mucus Urine Opiates Screen U Tricyclic Antidepress U Marijuana (THC) Screen 07/02/17 07/02/17 07/03/17 23:44 23:44 00:30 WBC RBC Neutrophils # Monocytes # APTT 21.8 L ABG pH ABG pO2 ABG HCO3 ABG O2 Saturation VBG pH VBG HCO3 Chloride Carbon Dioxide Glucose POC Glucose (mg/dL) Plasma Lactic Acid Chao Calcium Phosphorus AST ALT Creatine Kinase Total Creatine Kinase 18617 H CK-MB (CK-2) 51.6 H* Total Protein Albumin Urine Protein 1+ H Urine Ketones Trace H Urine Blood Trace H Urine RBC Urine WBC 25 H Urine WBC Clumps Urine Bacteria Hyaline Casts 52 H Urine Mucus Few H Urine Opiates Screen Detected H U Tricyclic Antidepress Detected H U Marijuana (THC) Screen Detected H 07/03/17 07/03/17 07/03/17 00:30 01:56 04:28 WBC 11.9 H RBC Neutrophils # 9.4 H Monocytes # 1.3 H APTT ABG pH 7.26 L ABG pO2 >400 H ABG HCO3 18 L ABG O2 Saturation 100.0 H VBG pH VBG HCO3 Chloride 110 H Carbon Dioxide 17 L Glucose 136 H POC Glucose (mg/dL) Plasma Lactic Acid Chao Calcium 7.9 L Phosphorus 6.1 H AST 159 H ALT 83 H Creatine Kinase Total Creatine Kinase CK-MB (CK-2) Total Protein 6.2 L Albumin Urine Protein Urine Ketones Urine Blood Urine RBC Urine WBC Urine WBC Clumps Urine Bacteria Hyaline Casts Urine Mucus Urine Opiates Screen U Tricyclic Antidepress U Marijuana (THC) Screen 07/03/17 07/03/17 07/03/17 04:28 05:05 06:30 WBC RBC Neutrophils # Monocytes # APTT ABG pH 7.27 L ABG pO2 193 H ABG HCO3 19 L ABG O2 Saturation 99.4 H VBG pH VBG HCO3 Chloride 114 H Carbon Dioxide 19 L Glucose POC Glucose (mg/dL) Plasma Lactic Acid Chao Calcium 7.4 L Phosphorus 4.9 H AST ALT Creatine Kinase Total Creatine Kinase CK-MB (CK-2) Total Protein Albumin Urine Protein 2+ H Urine Ketones 1+ H Urine Blood Large H Urine RBC 13 H Urine WBC 21 H Urine WBC Clumps Moderate H Urine Bacteria Occasional H Hyaline Casts Urine Mucus Many H Urine Opiates Screen U Tricyclic Antidepress U Marijuana (THC) Screen 07/04/17 07/04/17 07/04/17 04:56 04:56 05:09 WBC RBC 4.25 L Neutrophils # Monocytes # APTT ABG pH ABG pO2 ABG HCO3 ABG O2 Saturation 97.8 H VBG pH VBG HCO3 Chloride 114 H Carbon Dioxide Glucose POC Glucose (mg/dL) Plasma Lactic Acid Chao Calcium 7.8 L Phosphorus AST 243 H ALT 129 H Creatine Kinase 17239 H Total Creatine Kinase CK-MB (CK-2) Total Protein 4.5 L Albumin 2.4 L Urine Protein Urine Ketones Urine Blood Urine RBC Urine WBC Urine WBC Clumps Urine Bacteria Hyaline Casts Urine Mucus Urine Opiates Screen U Tricyclic Antidepress U Marijuana (THC) Screen 07/04/17 17:55 WBC RBC Neutrophils # Monocytes # APTT ABG pH ABG pO2 ABG HCO3 ABG O2 Saturation VBG pH VBG HCO3 Chloride Carbon Dioxide Glucose POC Glucose (mg/dL) 108 H Plasma Lactic Acid Chao Calcium Phosphorus AST ALT Creatine Kinase Total Creatine Kinase CK-MB (CK-2) Total Protein Albumin Urine Protein Urine Ketones Urine Blood Urine RBC Urine WBC Urine WBC Clumps Urine Bacteria Hyaline Casts Urine Mucus Urine Opiates Screen U Tricyclic Antidepress U Marijuana (THC) Screen Assessment and Plan Plan: Impression: 1. Metabolic encephalopathy likely related to drug overdose 2. Acute respiratory failure requiring intubation/patient is now extubated 3. Rhabdomyolysis 4. Hypertension Recommendation: It does appear patient's altered mental status was related to metabolic encephalopathy most likely drug overdose. Urine drug screen was positive for opiates, tricyclic antidepressants, and THC. Rhabdomyolysis with extremely elevated CK levels is being treated with IV fluids. During my visit, patient was extremely angry and did not want to answer questions or be examined. Patient states he is embarrassed about the whole situation. Psychiatric consult was obtained. I agree patient may need to be transferred to the psychiatric unit for care once CKs are normalized. Patient's altered mental status continues to improve. Neurological exam shows no lateralizing weakness, no facial droop, or other deficits. Continue current management. Mild postural tremors may be related to withdrawal symptoms. Continue neurological checks. Continue seizure precautions. I will continue to follow with you. Further recommendations to follow. Thank you for allowing me to participate in the care of your patient. If you have any questions, feel free to call me. I performed an examination of the patient and discussed the management with the MAMMOGRAPHY TECHNICIAN. I have reviewed the MAMMOGRAPHY TECHNICIAN notes and agree with the findings and plan of care.
[2017-07-05] MEDS: SODIUM CHLORIDE 0.9% 1,000 ML IV SCH ×4 (06:02→20:23)
[2017-07-05] MEDS: IPRATROPIUM-ALBUTEROL 3 ML NEB INHALATION SCH ×2 (07:00→11:10)
--- NOTE | 2017-07-05 07:15 | XR ---
EXAMINATION TYPE: XR chest 1V portable DATE OF EXAM: 07/05/2017 HISTORY: Tube placement. REFERENCE: Previous study dated 07/04/2017. FINDINGS: The patient is ET tube and NG tube have been removed. Heart size upper limits of normal. Lungs are clear. Pleural spaces are clear. IMPRESSION: BORDERLINE CARDIOMEGALY.
[2017-07-05 08:02] LABS: Basophils % (A) 0 %; Eosinophils # (A) 0.1 k/uL (0-0.7); Eosinophils % (A) 1 %; HCT 40.1 % (39.0-53.0); HGB 13.1 gm/dL (13.0-17.5); Lymphocytes # (A) 1.7 k/uL (1.0-4.8); Lymphocytes % (A) 15 %; MCH 31.4 pg (25.0-35.0); MCHC 32.6 g/dL (31.0-37.0); MCV 96.2 fL (80.0-100.0); Mean Platelet Volume 7.9; Monocytes # (A) 1.1 k/uL (0-1.0); Monocytes % (A) 10 %; Neutrophils # (A) 8.1 k/uL (1.3-7.7); Neutrophils % (A) 73 %; Platelet Count 213 k/uL (150-450); RBC 4.17 m/uL (4.30-5.90); RDW 13.4 % (11.5-15.5); WBC 11.2 k/uL (3.8-10.6)
[2017-07-05 08:12] LABS: Anion Gap 9 mmol/L; Blood Urea Nitrogen 10 mg/dL (9-20); Calcium 8.2 mg/dL (8.4-10.2); Carbon Dioxide 23 mmol/L (22-30); Chloride 108 mmol/L (98-107); Glucose 85 mg/dL (74-99); Magnesium 1.9 mg/dL (1.6-2.3); Phosphorus 2.7 mg/dL (2.5-4.5); Potassium 3.5 mmol/L (3.5-5.1); Sodium 140 mmol/L (137-145)
[2017-07-05] MEDS: amLODIPine 5 MG TAB PO SCH (08:17)
[2017-07-05] MEDS: ENOXAPARIN 40 MG/0.4 ML SYRINGE SQ SCH (08:17)
[2017-07-05] MEDS: PANTOPRAZOLE 40 MG/10 ML VIAL IV SCH (08:17)
[2017-07-05 08:35] LABS: Creatine Kinase 15628 U/L (55-170)
--- NOTE | 2017-07-05 10:39 | XR ---
EXAMINATION TYPE: XR Hip Complete LT , 2 VIEWS DATE OF EXAM ORDERED: 07/05/2017 HISTORY: pain/swollen/rule out fx. COMPARISON: None. FINDINGS: There is pseudocystic change in the left humeral neck. The left humeral head is nonspherica l. There are mild remodeling changes. No fracture or dislocation is seen.. IMPRESSION: 1. NO ACUTE OSSEOUS LESION. 2. CHANGES COMPATIBLE WITH FEMOROACETABULAR IMPINGEMENT SYNDROME. PLEASE CORRELATE CLINICALLY.
--- NOTE | 2017-07-05 13:06 | US ---
EXAMINATION TYPE: US venous doppler duplex LE LT DATE OF EXAM: 07/05/2017 12:55 PM COMPARISON: NONE CLINICAL HISTORY: swelling/pain at left hip/groin r/o DVT. left hip pain per patine. No hx of blood clots or on blood thinners. SIDE PERFORMED: Left TECHNIQUE: The lower extremity deep venous system is examined utilizing real time linear array sonog chong with graded compression, doppler sonography and color-flow sonography. VESSELS IMAGED: External Iliac Vein (EIV) Common Femoral Vein Deep Femoral Vein Greater Saphenous Vein * Femoral Vein Popliteal Vein Small Saphenous Vein * Proximal Calf Veins (* superficial vessels) Left Leg: Appears negative for DVT No popliteal fossa lesion is seen. IMPRESSION: THIS EXAMINATION IS NEGATIVE FOR DVT WITHIN THE LEFT LEG.
[2017-07-05] MEDS ORDERED: RX INFO: IV CONTRAST WAS GIVEN 1 EACH MISC MISCELLANE PRN (13:18)
--- NOTE | 2017-07-05 13:19 | P.PN ---
Subjective Progress Note Date: 07/05/17 Principal diagnosis: Drug overdose, respiratory failure Progress note dated 07/04/2017 8-year-old male who was admitted apparently found by his in the garage. The patient was brought into the emergency room. His apparently passed out on the garage floor. He was initially thought to be a suicide attempt although there may be something else going on here. Anyway according to the emergency physician, the patient cannot protect his airway for that reason he was intubated and placed on mechanical ventilator. The patient had a drug screen that was positive for TCAs, marijuana, and opiates. Anyway, yesterday, we did a daily interruption of sedation. He wasn't ready for extubation. He was sedated. All. Currently, he seems to be doing a bit better. Bit more stable. Chest x-ray looks good. No acute infiltrates. He's on the assist control mode rate of 14 tidal volume 500 FiO2 30% PEEP of 5. Arterial blood gases show pO2 of 91 pCO2 35 and a pH of 7.38. This consistent with a mixed acid-base disturbance including a mild respiratory alkalosis and a mild metabolic acidosis. In addition, he is on propofol at 45 mics per kilogram per minute a saline IV at 150 mL now her and vital high protein at 30 with a goal of 45. Today, we'll place him on PSV 5 CPAP of 5 to some weaning parameters do a cuff leak and see if he is ready for extubation. Progress note dated 07/05/2017 62-year-old male who was admitted after being found by his and his garage. He was apparently found on the floor. He was brought to the emergency room. He was thought to be a suicide attempt. Anyway, according to the emergency room physician, he could not protect his airway and for that reason he was intubated and placed on mechanical ventilator. His drug screen was positive for tricyclic antidepressants, marijuana, and opiates. Yesterday, the patient was extubated. He was not ready on July 03 but was ready on July 04. He was moved out of the ICU. His CKs were elevated but are coming down. He complains today of some left hip and left thigh pain and swelling. He had an x-ray of that area which was negative. A Doppler of the left lower extremity was negative for DVT. He may benefit from a computed tomography scan of the abdomen and pelvis to better evaluate that left hip area. I mentioned that to the nurse in the community wanted by the primary service. Objective - Vital Signs Vital signs: Vital Signs Temp 98.0 F 07/05/17 06:06 Pulse 98 07/05/17 11:20 Resp 18 07/05/17 08:20 BP 157/89 07/05/17 06:06 Pulse Ox 95 07/05/17 06:06 Intake & Output 07/04/17 07/05/17 07/05/17 18:59 06:59 18:59 Intake Total 2012.685 400 Output Total 1450 1050 Balance 562.685 -1050 400 Weight 71.5 kg 74.5 kg 74.5 kg Intake: IV 1800 Sodium Chloride 0.9% 1, 1800 000 ml @ 150 mls/hr IV . Q6H40M [facility] Rx#:[id number] Intake, IV Titration 92.685 Amount Propofol 1,000 mg In 92.685 Empty Bag 1 bag @ Titrate IV .Q0M [facility] Rx#: [id number] Oral 400 Tube Feeding 90 Other 30 Output: Urine 1450 1050 Straight 450 Other: Voiding Method Indwelling Catheter Toilet Urinal # Voids 0 0 # Bowel Movements 0 - Exam No acute distress, oriented 3. Appears not to have any acute respiratory difficulty. HEENT examination is grossly unremarkable. Mucous membranes are moist. Neck supple. Full range of motion. No adenopathy thyromegaly or neck vein distention. Cardiovascular examination reveals regular rhythm rate. S1-S2 normal. No S3 or S4. No discernible murmur noted. Lungs reveal clear breath sounds. Her sounds are equal bilaterally. No adventitious lung sounds including wheezes rhonchi or crackles. Abdomen soft bowel sounds are heard. No masses or tenderness. Extremities are intact. Left side of the thigh to below the knee is painful and tender. Is also quite swollen and a bit tense. Skin is without rash or lesion. Neurologic examination is normal. - Labs CBC & Chem 7: 07/05/17 07:35 07/05/17 07:35 Labs: Abnormal Lab Results - Last 24 Hours (Table) 07/04/17 07/05/17 07/05/17 Range/Units 17:55 07:35 07:35 WBC 11.2 H (3.8-10.6) k/uL RBC 4.17 L (4.30-5.90) m/uL Neutrophils # 8.1 H (1.3-7.7) k/uL Monocytes # 1.1 H (0-1.0) k/uL Chloride 108 H (98-107) mmol/L POC Glucose (mg/dL) 108 H (75-99) mg/dL Calcium 8.2 L (8.4-10.2) mg/dL Creatine Kinase 31580 H (55-170) U/L Microbiology - Last 24 Hours (Table) 07/03/17 04:55 Gram Stain - Final Sputum Sputum Culture - Final 07/02/17 23:44 Urine Culture - Final Urine,Voided Assessment and Plan Assessment: Assessment Respiratory failure, secondary to drug overdose, with requirement for intubation and mechanical ventilation Status post extubation on July 04 Rhabdomyolysis Drug screen positive for tricyclic antidepressants, opiates, and THC. Possible suicide attempt No other major medical problems according to the medical history, which may be incomplete His alcohol and drug abuse. History of chronic tobacco use Plan: Plan dated 07/03/2017 The patient's sedation will be held. We'll see if we can't wake the patient up and evaluate him for a spontaneous breathing trial and whether or not he could be extubated. The patient did have a computed tomography scan of the brain which was negative. In electroencephalogram was ordered. We may end up starting him on tube feeds depending on his neurologic status. Additional recommendations and suggestions are forthcoming. Prognosis is guarded. He will need a psychiatric consultation as well as he gets extubated. Plan dated 07/04/2017 The patient will be given a daily interruption of sedation. The patient be placed on PSV 5 and CPAP of 5. We'll do some weaning parameters and a cuff leak. We will turn off his propofol and we'll turn off his tube feeds. If he is awake and alert and if he has good weaning parameters, he'll be extubated. Postextubation local having a psychiatric consultation. Additional recommendations and suggestions are forthcoming. Prognosis is guarded. Critical care time is 34 minutes Plan dated 07/05/2017. X-ray of the left thigh was apparently negative. Dopplers of the left lower extremity were negative for DVT. We'll call and order computed tomography scan of the abdomen and pelvis with contrast to better evaluate that area. His CKs continued to come down. He remains on IV fluid hydration. We'll see the patient when necessary. No lung issues. Breathing treatments were discontinued. Time with Patient: Less than 30
[2017-07-05] MEDS: IOPAMIDOL-300 CONTRAST 30 ML VIAL (ORAL USE) PO PRN ×2 (13:25→14:22)
--- NOTE | 2017-07-05 16:20 | CT ---
EXAMINATION TYPE: CT abdomen pelvis w con DATE OF EXAM: 07/05/2017 COMPARISON: NONE HISTORY: Left sided hip pain and decreased range of motion CT DLP: 957.8 mGycm Automated exposure control for dose reduction was used. TECHNIQUE: Helical acquisition of images from the lung bases through the pelvis have been completed. CONTRAST: Performed with Oral Contrast and with IV Contrast, patient injected with 100 mL of Isovue 300. FINDINGS: LUNG BASES: Bibasilar patchy densities present, there is some air bronchograms posteriorly with minim al pleural effusions, some minimal groundglass opacity present in the right middle and left upper lob es. AORTA: No significant abnormality is appreciated. LIVER/GB: No significant abnormality is appreciated. PANCREAS: There is a punctate calcification in the head of the pancreas. SPLEEN: No significant abnormality is seen. ADRENALS: No significant abnormality is seen. KIDNEYS: Exophytic cyst at the upper pole the left kidney measures approximately 3 cm, parapelvic cys ts are present involving the left kidney REPRODUCTIVE ORGANS: No significant abnormality is seen BOWEL: No significant abnormality is seen. FREE AIR: No Free Air visible. ASCITES: No significant ascites PELVIC ADENOPATHY: None visualized. RETROPERITONEAL ADENOPATHY: No Retroperitoneal Adenopathy visible. URINARY BLADDER: Distended with urine. OSSEOUS STRUCTURES: No significant abnormality is seen. There is some fluid attenuation in the presacral location. Some anasarca changes are present within t he subcutaneous fat There is a large area of low-attenuation involving the hip abductors which is ill-defined. IMPRESSION: ABNORMAL INCREASE IN SIZE OF THE HIP ABDUCTORS WITH LOSS OF NORMAL MUSCLE PLANES, INDISTINCT MUSCLE M ARGINS COULD BE RELATED TO MASS, HEMATOMA, MYOSITIS, CORRELATE. THIGH MRI IS SUGGESTED. CORRELATE TO EXCLUDE BASILAR PNEUMONIA. ADDITIONAL NONSPECIFIC FINDINGS DESCRIBED ABOVE.
[2017-07-05] MEDS: NICOTINE 21MG/24HR PATCH TRANSDERM SCH (16:41)
[2017-07-05] MEDS: ASPIRIN 81 MG PO SCH (16:44)
[2017-07-05] MEDS: KETOROLAC 30 MG/ML 1 ML VIAL IVP SCH ×2 (16:44→23:49)
--- NOTE | 2017-07-05 19:16 | P.PN ---
Subjective Progress Note Date: 07/05/17 Patient is a 62-year-old male who is being followed by the neurology service for altered mental status. Patient does have history of chronic pain, hypertension, GERD, and tobacco use. found patient in the garage slumped in a chair. Patient was there for hours and called 911. Patient was brought to [facility] for further evaluation. Patient was given Narcan in the ER and had moderate response. Patient was unable to protect his airway and was intubated. Patient was taken to the ICU and treated. Patient was extubated the following day. Patient was subsequently transferred to the floor. At the time of my evaluation, patient is resting comfortably in bed and appears to be in no acute distress. Objective - Vital Signs Vital signs: Vital Signs Temp 98.0 F 07/05/17 15:00 Pulse 92 07/05/17 16:17 Resp 18 07/05/17 16:17 BP 141/79 07/05/17 15:00 Pulse Ox 92 L 07/05/17 15:00 Intake & Output 07/05/17 07/05/17 07/06/17 06:59 18:59 06:59 Intake Total 630 Output Total 1050 Balance -1050 630 Weight 74.5 kg 74.5 kg Intake: Oral 600 Tube Feeding 30 Output: Urine 1050 Straight 450 Other: Voiding Method Toilet Urinal # Voids 0 2 # Bowel Movements 0 - Exam PHYSICAL EXAM: GENERAL APPEARANCE: Patient is a well-developed, male who appears to be in no acute distress. HEENT: Normocephalic, atraumatic, no facial asymmetry is seen. Neck is supple with no masses felt. CARDIOVASCULAR: Regular rate and rhythm. ABDOMEN: Nontender, nondistended. EXTREMITIES: Show no edema or clubbing. NEUROLOGICAL EXAM: Patient is awake, alert, and oriented 3. Speech and language are normal. Strength is full in all 4 extremities. Sensory exam is normal to light touch in all 4 extremities. No obvious facial asymmetry noted. No tremors or seizure-like activity reported. - Labs CBC & Chem 7: 07/05/17 07:35 07/05/17 07:35 Labs: Abnormal Lab Results - Last 24 Hours (Table) 07/05/17 07/05/17 Range/Units 07:35 07:35 WBC 11.2 H (3.8-10.6) k/uL RBC 4.17 L (4.30-5.90) m/uL Neutrophils # 8.1 H (1.3-7.7) k/uL Monocytes # 1.1 H (0-1.0) k/uL Chloride 108 H (98-107) mmol/L Calcium 8.2 L (8.4-10.2) mg/dL Creatine Kinase 64386 H (55-170) U/L Microbiology - Last 24 Hours (Table) 07/03/17 04:55 Gram Stain - Final Sputum Sputum Culture - Final 07/02/17 23:44 Urine Culture - Final Urine,Voided Assessment and Plan Plan: Impression: 1. Metabolic encephalopathy likely related to drug overdose 2. Acute respiratory failure requiring intubation/patient is now extubated 3. Rhabdomyolysis 4. Hypertension Recommendation: It does appear patient's altered mental status was related to metabolic encephalopathy most likely drug overdose. Urine drug screen was positive for opiates, tricyclic antidepressants, and THC. Rhabdomyolysis with extremely elevated CK levels is being treated with IV fluids. Patient is angry and uncooperative at times. Psychiatric consult was obtained. I agree patient may need to be transferred to the psychiatric unit for care once CKs are normalized. Patient's altered mental status continues to improve. Neurological exam shows no lateralizing weakness, no facial droop, or other deficits. Family feels patient speech is not back to baseline. MRI of the brain was ordered. Continue current management. Continue neurological checks. Continue seizure precautions. I will continue to follow with you. Further recommendations to follow. I performed an examination of the patient and discussed the management with the UX LEAD. I have reviewed the UX LEAD notes and agree with the findings and plan of care.
--- NOTE | 2017-07-05 19:18 | P.PN ---
Subjective Progress Note Date: 07/05/17 This is a 62-year-old male patient of Dr. Wilson with past medical history of hypertension, gastroesophageal reflux disease, tobacco use and dependence. Patient last saw Dr. Wilson last week at that time and blood pressure 186/100 there is question whether he receiving samples for blood pressure medicine from the office. He is gone therefore an employee physical. He has been prescribed [place] in the past and received 60 tablets on May 21 and previous to that it was February 26 for 60 tablets. Patient was seen by his in the morning around 11:00 and they had an argument. At 5:00 when she came home he was slumped in a chair in the crotch. She then went in the house and did not talk to him and assume that he left for work but later found him at around 9:30 still slumped in the crotch and 911 was called. Narcan was given by EMS and 2 doses of Narcan were given in the emergency center. He was intubated and started on fluid resuscitation. Patient was admitted to the intensive care unit. His white count was 14, lactic acid was 2.5 and repeat 0.7 , AST 159 and ALT 83, total CK was 19,980. Urinalysis was cloudy, nitrate and leukoesterase were negative positive hyalin cast. Urine drug screen was positive for opiates and tricyclic antidepressants and marijuana. Salicylate level acetaminophen and serum alcohol levels were negative. Initially venous blood gases were pH of 7.25, pCO2 of 40, bicarb 17, carbon dioxide 4. Chest x- ray was unremarkable. CT of the brain. CT of the cervical spine shows spondylosis and stenosis. Repeat chest x-ray done this morning shows no acute process. Patient has been afebrile, blood pressure is been on the higher side. EEG has been ordered an MRI of the brain. Consult in place for pulmonary medicine, neurology and psychiatry. Patient is currently off sedation with no response, no gag reflex. 07/04 patient extubated today. Does not answer any questions. Would not talk about what medication he took. He does admit to suicidal ideation. Denies any shortness of breath or chest pain. Blood pressure 177/86 heart rate 90. Labs suggest increase in LFTs with increasing creatinine kinase 18,000. Patient will be transferred to inpatient psych once medically stable. Norvasc 5 initiated for blood pressure control continue IV fluids for rhabdomyolysis 07/05:, Patient is in at bedside with stepdaughter, and stepdaughter mentioned that his speech is slurred today, no other focal neurologic deficit, this is new after his extubation, it is not for select he thinks he was, however speech is not as clear, he also has left hip pain, x-ray shows left femoral acetabular impingement, CAT scan of the pelvis was requested, results are currently pending , we have requested Dr. Khalil to see the patient secondary to the x-ray findings and significant left hip pain, difficulty ambulating. MRI of the brain is requested to evaluate for acute CVA with slurred speech, aspirin 81 mg to be started, patient might need statins however creatinine kinase is elevated and hence statin not started. Current CPK are to 15,000. Creatinine of 0.8 Objective - Vital Signs Vital signs: Vital Signs Temp 98.0 F 07/05/17 15:00 Pulse 92 07/05/17 16:17 Resp 18 07/05/17 16:17 BP 141/79 07/05/17 15:00 Pulse Ox 92 L 07/05/17 15:00 Intake & Output 07/04/17 07/05/17 07/05/17 18:59 06:59 18:59 Intake Total 2012.685 630 Output Total 1450 1050 Balance 562.685 -1050 630 Weight 71.5 kg 74.5 kg 74.5 kg Intake: IV 1800 Sodium Chloride 0.9% 1, 1800 000 ml @ 150 mls/hr IV . Q6H40M [facility] Rx#:[id number] Intake, IV Titration 92.685 Amount Propofol 1,000 mg In 92.685 Empty Bag 1 bag @ Titrate IV .Q0M [facility] Rx#: [id number] Oral 600 Tube Feeding 90 30 Other 30 Output: Urine 1450 1050 Straight 450 Other: Voiding Method Indwelling Catheter Toilet Urinal # Voids 0 2 # Bowel Movements 0 - Constitutional General appearance: Present: cooperative, no acute distress - EENT Eyes: Present: anicteric sclerae, PERRLA, dentition normal, normal appearance ENT: Present: NA/AT, normal oropharynx - Neck Neck: Present: normal ROM - Respiratory Respiratory: bilateral: CTA, negative: diminished, dullness, rales, rhonchi, wheezing - Cardiovascular Rhythm: regular Heart sounds: normal: S1, S2 - Gastrointestinal General gastrointestinal: Present: normal bowel sounds, soft - Integumentary Integumentary: Present: normal, normal turgor - Neurologic Neurologic: Present: CNII-XII intact - Musculoskeletal Musculoskeletal Comment(s): Unable to provide weight in the left hip secondary to pain - Psychiatric Psychiatric: Present: A&O x's 3, appropriate affect, intact judgment & insight - Labs CBC & Chem 7: 07/05/17 07:35 07/05/17 07:35 Labs: Abnormal Lab Results - Last 24 Hours (Table) 07/05/17 07/05/17 Range/Units 07:35 07:35 WBC 11.2 H (3.8-10.6) k/uL RBC 4.17 L (4.30-5.90) m/uL Neutrophils # 8.1 H (1.3-7.7) k/uL Monocytes # 1.1 H (0-1.0) k/uL Chloride 108 H (98-107) mmol/L Calcium 8.2 L (8.4-10.2) mg/dL Creatine Kinase 73010 H (55-170) U/L Microbiology - Last 24 Hours (Table) 07/03/17 04:55 Gram Stain - Final Sputum Sputum Culture - Final 07/02/17 23:44 Urine Culture - Final Urine,Voided Assessment and Plan Plan: 1. Metabolic encephalopathy of unclear etiology, possible drug overdose. differential would be antifreeze ingestion. Serum osmolarity and measured osmolarity ordered. There is a quality assurance/r&d lab technician investigation ongoing. Apparently suicide notes were left in the home but were suspicious. Psychiatric consult recommends inpatient rehab and medical history stable neurology consult. ethylene glycol to be checked. EEG showed mild metabolic encephalopathy 2. Acute hypoxic respiratory failure requiring intubation and mechanical ventilation. Extubated on 07/04 currently on 2 L of oxygenation saturating well Patient is being managed by Dr. Mcgee. 3. Rhabdomyolysis without any kidney failure,. IV fluids at 150 mL per hour. Repeat CK daily. Oral fluid hydration thereafter 4. Left hip pain with left femoral acetabular impingement syndrome, CAT scan of the pelvis was requested showing increased size of hip abductors with loss of normal muscle planes, could be related to mass hematoma myositis, by MRI suggested, Dr. Black to see the patient orthopedics, patient will be physical therapy as well, pain control would be with Toradol, unable to provide opiates at this time secondary to history off alcohol dependency and history of drug dependency abuse in the past. Negative for DVT on Doppler exam bilateral legs 5. Acute slurred speech /dysarthria, occurring 1 day after extubation, high risk for acute neurologic events, MRI of the brain is is requested, aspirin initiated, unable to start statin secondary to rhabdomyolysis. If MRI imaging in thehip region shows hematoma formation, aspirin needs to be discontinued 4. History of tobacco use and dependence. 5. History of gastroesophageal reflux disease and GI prophylaxis. Protonix. 6. History of hypertension. Monitor blood pressure closely. 7 History of alcohol abuse, last alcohol intake tilley July 02, monitor for DTs, we would provide Librium 10 mg q 6 when necessary 8 basilar infiltrates noted on computed tomography scan, incentive spirometry and when necessary albuterol as needed, currently not on any antibiotics, continue to monitor for progress of infiltrates on are following 9. DVT prophylaxis. Lovenox.
[2017-07-05] MEDS ORDERED: ALBUTEROL NEBULIZED 2.5 MG/3 ML INHALATION PRN (19:19)
[2017-07-06] MEDS: KETOROLAC 30 MG/ML 1 ML VIAL IVP SCH ×4 (05:19→23:38)
[2017-07-06] MEDS: SODIUM CHLORIDE 0.9% 1,000 ML IV SCH ×4 (05:19→23:39)
[2017-07-06] MEDS: amLODIPine 5 MG TAB PO SCH (06:27)
[2017-07-06] MEDS: PANTOPRAZOLE 40 MG TABLET PO SCH (06:27)
[2017-07-06 08:25] LABS: Albumin 2.8 g/dL (3.5-5.0); Anion Gap 8 mmol/L; Blood Urea Nitrogen 11 mg/dL (9-20); Calcium 8.5 mg/dL (8.4-10.2); Carbon Dioxide 27 mmol/L (22-30); Chloride 106 mmol/L (98-107); Cholesterol 155 mg/dL (<200); Glucose 87 mg/dL (74-99); HDL Cholesterol 49 mg/dL (40-60); LDL Cholesterol,Calculated 79 mg/dL (0-99); Potassium 4.2 mmol/L (3.5-5.1); Sodium 141 mmol/L (137-145); Triglycerides 135 mg/dL (<150)
[2017-07-06] MEDS: NICOTINE 21MG/24HR PATCH TRANSDERM SCH (08:36)
[2017-07-06] MEDS: ASPIRIN 81 MG PO SCH (08:37)
[2017-07-06] MEDS: ENOXAPARIN 40 MG/0.4 ML SYRINGE SQ SCH (08:37)
[2017-07-06 09:06] LABS: Creatine Kinase 20294 U/L (55-170)
--- NOTE | 2017-07-06 09:28 | P.CNOR ---
History of Present Illness - HPI Consult date: 07/06/17 History of present illness: This is a 62-year-old male who was admitted after overdose. Orthopedics is consulted due to left hip pain. Patient states he noticed the left hip pain yesterday and states he has difficulty walking. Patient denies any fall or injury. Patient states the pain is mostly to the lateral aspect of the left hip. Patient states that this has never happened before. Patient denies any swelling or bruising, radicular pain, fever/chills, numbness, weakness or tingling. Review of Systems See HPI. Past Medical History Past Medical History: No Reported History, GERD/Reflux, Hypertension Additional Past Medical History / Comment(s): wound to lt. foot x 3 mo History of Any Multi-Drug Resistant Organisms: None Reported Past Surgical History: Orthopedic Surgery Additional Past Surgical History / Comment(s): rt ankle arthroscopy, "inj in back" Past Anesthesia/Blood Transfusion Reactions: No Reported Reaction Smoking Status: Former smoker Additional Past Alcohol Use History / Comment(s): Patient is an active smoker started at age 20, 1 pack per day. He also smokes marijuana. - Past Family History Father Additional Family Medical History / Comment(s): back/knee sx Mother Family Medical History: No Reported History Brother(s) Family Medical History: No Reported History Sister(s) Family Medical History: No Reported History Medications and Allergies Home Medications Medication Instructions Recorded Confirmed Type No Known Home Medications [No 07/03/17 07/03/17 History Known Home Medications] Allergies Allergy/AdvReac Type Severity Reaction Status Date / Time No Known Allergies Allergy Verified 08/26/16 11:18 Physical Examination On exam patient is alert and oriented 3, lying comfortably in bed in no acute distress. There is no swelling, erythema, ecchymosis or warmth to the left lower extremity. There is no tenderness to palpation to the lateral aspect of the left hip. There is no pain with log roll of the left lower extremity. Patient has full range of motion of the left hip and left knee without pain. There is minimal pain with active hip flexion. Patient has full foot and ankle motion without difficulty. Left lower extremity is warm and well perfused. Calf is soft and nontender to palpation. Sensation intact. Neurovascular status circulatory status are intact. Results X-rays of the left hip are negative for any fracture or dislocation. A CT of the abdomen and pelvis shows: Abnormal increase in the size of the hip abductors with loss of normal muscle planes, indistinct muscle margins could be related to mass, hematoma, myositis, correlate. Thigh MRI suggested. Correlate to exclude basilar pneumonia. - Labs Labs: Abnormal Lab Results - Last 24 Hours (Table) 07/06/17 Range/Units 07:30 Albumin 2.8 L (3.5-5.0) g/dL Microbiology - Last 24 Hours (Table) 07/03/17 04:55 Gram Stain - Final Sputum Sputum Culture - Final H & H 07/02/17 07/03/17 07/04/17 Range/Units 23:44 04:28 04:56 Hgb 16.2 14.2 13.0 (13.0-17.5) gm/dL Hct 49.4 44.0 41.2 (39.0-53.0) % 07/05/17 Range/Units 07:35 Hgb 13.1 (13.0-17.5) gm/dL Hct 40.1 (39.0-53.0) % Coagulation 07/02/17 07/03/17 07/04/17 Range/Units 23:44 04:39 06:18 INR 1.0 1.1 1.0 (<1.2) Result Diagrams: 07/05/17 07:35 07/06/17 07:30 Assessment and Plan (1) Left hip pain Current Visit: Yes Status: Acute Code(s): M25.552 - PAIN IN LEFT HIP SNOMED Code(s): 38819286 (2) Overdose Current Visit: Yes Status: Acute Code(s): T50.901A - POISONING BY UNSP DRUG/ MEDS/BIOL SUBST, ACCIDENTAL, INIT SNOMED Code(s): 17981692 Plan: #1. Recommend physical therapy for left hip pain. #2. Weightbearing as tolerated. 3. Patient may follow up as an outpatient on an as-needed basis. Will continue to follow.
[2017-07-06] MEDS: THIAMINE 100 MG TAB PO SCH (11:30)
--- NOTE | 2017-07-06 15:44 | P.PN ---
Subjective Progress Note Date: 07/06/17 Patient is a 62-year-old male who is being followed by the neurology service for altered mental status. Patient does have history of chronic pain, hypertension, GERD, and tobacco use. found patient in the garage slumped in a chair. Patient was there for hours and called 911. Patient was brought to [facility] for further evaluation. Patient was given Narcan in the ER and had moderate response. Patient was unable to protect his airway and was intubated. Patient was taken to the ICU and treated. Patient was extubated the following day. Patient was subsequently transferred to the floor. At the time of my evaluation, patient is resting comfortably in bed and appears to be in no acute distress. 07/06/2017 Patient is a 62-year-old male is being followed by the neurology service for altered mental status. Patient was found by in the garage. Patient was brought to [facility] and diagnosed with drug overdose. Patient was treated in the ICU and intubated. Patient was extubated and transferred to the floor. Patient is alert and conversant at this time. Family noticed patient had speech difficulty and an MRI was ordered. No speech difficulty noticed on my exam. He is to have MRI done in the morning. At the time of my evaluation, he is resting comfortably in bed and appears to be in no acute distress. Objective - Vital Signs Vital signs: Vital Signs Temp 97.4 F L 07/06/17 15:00 Pulse 83 07/06/17 15:00 Resp 16 07/06/17 15:00 BP 143/78 07/06/17 15:00 Pulse Ox 94 L 07/06/17 15:00 Intake & Output 07/05/17 07/06/17 07/06/17 18:59 06:59 18:59 Intake Total 630 600 Output Total 700 0 Balance 630 -700 600 Weight 74.5 kg 73.5 kg 73.5 kg Intake: Oral 600 600 Tube Feeding 30 0 Output: Urine 700 0 Other: Voiding Method Toilet Urinal Urinal Urinal # Voids 2 0 3 # Bowel Movements 0 0 0 - Exam PHYSICAL EXAM: GENERAL APPEARANCE: Patient is a well-developed, male who appears to be in no acute distress. HEENT: Normocephalic, atraumatic, no facial asymmetry is seen. Neck is supple with no masses felt. CARDIOVASCULAR: Regular rate and rhythm. ABDOMEN: Nontender, nondistended. EXTREMITIES: Show no edema or clubbing. NEUROLOGICAL EXAM: Patient is awake, alert, and oriented 3. Speech and language are normal. Strength is full in all 4 extremities. Sensory exam is normal to light touch in all 4 extremities. No obvious facial asymmetry noted. No tremors or seizure-like activity reported. - Labs CBC & Chem 7: 07/05/17 07:35 07/06/17 07:30 Labs: Abnormal Lab Results - Last 24 Hours (Table) 07/06/17 Range/Units 07:30 Creatine Kinase 26660 H (55-170) U/L Albumin 2.8 L (3.5-5.0) g/dL Assessment and Plan Plan: Impression: 1. Metabolic encephalopathy likely related to drug overdose 2. Acute respiratory failure requiring intubation/patient is now extubated 3. Rhabdomyolysis 4. Hypertension Recommendation: It does appear patient's altered mental status was related to metabolic encephalopathy most likely drug overdose. Urine drug screen was positive for opiates, tricyclic antidepressants, and THC. Rhabdomyolysis with extremely elevated CK levels is being treated with IV fluids. Patient is angry and uncooperative at times. Psychiatric consult was obtained. I agree patient may need to be transferred to the psychiatric unit for care once CKs are normalized. Patient's altered mental status continues to improve. Neurological exam shows no lateralizing weakness, no facial droop, or other deficits. Family feels patient speech is not back to baseline. MRI of the brain was ordered. Continue current management. Continue neurological checks. Continue seizure precautions. I will continue to follow with you. Further recommendations to follow after the MRI. I performed an examination of the patient and discussed the management with the LICENSED REACTOR OPERATOR. I have reviewed the LICENSED REACTOR OPERATOR notes and agree with the findings and plan of care.
--- NOTE | 2017-07-06 19:19 | P.PN ---
Subjective This is a 62-year-old male patient of Dr. Wilson with past medical history of hypertension, gastroesophageal reflux disease, tobacco use and dependence. Patient last saw Dr. Wilson last week at that time and blood pressure 186/100 there is question whether he receiving samples for blood pressure medicine from the office. He is gone therefore an employee physical. He has been prescribed [place] in the past and received 60 tablets on May 21 and previous to that it was February 26 for 60 tablets. Patient was seen by his in the morning around 11:00 and they had an argument. At 5:00 when she came home he was slumped in a chair in the crotch. She then went in the house and did not talk to him and assume that he left for work but later found him at around 9:30 still slumped in the crotch and 911 was called. Narcan was given by EMS and 2 doses of Narcan were given in the emergency center. He was intubated and started on fluid resuscitation. Patient was admitted to the intensive care unit. His white count was 14, lactic acid was 2.5 and repeat 0.7 , AST 159 and ALT 83, total CK was 19,980. Urinalysis was cloudy, nitrate and leukoesterase were negative positive hyalin cast. Urine drug screen was positive for opiates and tricyclic antidepressants and marijuana. Salicylate level acetaminophen and serum alcohol levels were negative. Initially venous blood gases were pH of 7.25, pCO2 of 40, bicarb 17, carbon dioxide 4. Chest x- ray was unremarkable. CT of the brain. CT of the cervical spine shows spondylosis and stenosis. Repeat chest x-ray done this morning shows no acute process. Patient has been afebrile, blood pressure is been on the higher side. EEG has been ordered an MRI of the brain. Consult in place for pulmonary medicine, neurology and psychiatry. Patient is currently off sedation with no response, no gag reflex. 07/04 patient extubated today. Does not answer any questions. Would not talk about what medication he took. He does admit to suicidal ideation. Denies any shortness of breath or chest pain. Blood pressure 177/86 heart rate 90. Labs suggest increase in LFTs with increasing creatinine kinase 18,000. Patient will be transferred to inpatient psych once medically stable. Norvasc 5 initiated for blood pressure control continue IV fluids for rhabdomyolysis 07/05:, Patient is in at bedside with stepdaughter, and stepdaughter mentioned that his speech is slurred today, no other focal neurologic deficit, this is new after his extubation, it is not for select he thinks he was, however speech is not as clear, he also has left hip pain, x-ray shows left femoral acetabular impingement, CAT scan of the pelvis was requested, results are currently pending , we have requested Dr. Khalil to see the patient secondary to the x-ray findings and significant left hip pain, difficulty ambulating. MRI of the brain is requested to evaluate for acute CVA with slurred speech, aspirin 81 mg to be started, patient might need statins however creatinine kinase is elevated and hence statin not started. Current CPK are to 15,000. Creatinine of 0.8 07/06: Patient's mood is upbeat, patient has left hip pain, and swelling the left leg, left tight, left hip pain, patient relates to increasing difficulty in raising of the ankle, suspicious for pyriformis syndrome rather than for peroneal nerve issues, Dopplers of the leg is negative, patient does not have any back pain he does have quadratus lumborum but not spine pain. Orthopedics has seen the patient, no surgical intervention, physical therapy MRI, of the hip and MRI of the brain is currently pending, speech is normalized Objective - Vital Signs Vital signs: Vital Signs Temp 97.4 F L 07/06/17 15:00 Pulse 83 07/06/17 15:50 Resp 16 07/06/17 15:50 BP 143/78 07/06/17 15:00 Pulse Ox 94 L 07/06/17 15:00 Intake & Output 07/06/17 07/06/17 07/07/17 06:59 18:59 06:59 Intake Total 600 Output Total 700 0 Balance -700 600 Weight 73.5 kg 73.5 kg Intake: Oral 600 Tube Feeding 0 Output: Urine 700 0 Other: Voiding Method Urinal Urinal # Voids 0 3 # Bowel Movements 0 0 - Constitutional General appearance: Present: cooperative, no acute distress - EENT Eyes: Present: anicteric sclerae, EOMI, dentition normal, normal appearance ENT: Present: NA/AT, normal oropharynx - Neck Neck: Present: normal ROM. Absent: lymphadenopathy, other, rigidity, stridor, thyromegaly - Respiratory Respiratory: bilateral: CTA, negative: dullness, rales, rhonchi, wheezing, prolonged expiration - Cardiovascular Rhythm: regular Heart sounds: normal: S1, S2 Abnormal Heart Sounds: Present: systolic murmur. Absent: diastolic murmur, rub , S3 Gallop, S4 Gallop, click, other - Gastrointestinal General gastrointestinal: Present: organomegaly, soft - Integumentary Integumentary: Present: normal, normal turgor - Neurologic Neurologic: Present: CNII-XII intact - Musculoskeletal Musculoskeletal: Present: gait normal (Impaired balance mainly in the left hip, patient has difficulty in flexing ankle left side), strength equal bilaterally - Psychiatric Psychiatric: Present: A&O x's 3, appropriate affect - Labs CBC & Chem 7: 07/05/17 07:35 07/06/17 07:30 Labs: Abnormal Lab Results - Last 24 Hours (Table) 07/06/17 Range/Units 07:30 Creatine Kinase 91186 H (55-170) U/L Albumin 2.8 L (3.5-5.0) g/dL Assessment and Plan Plan: 1. Metabolic encephalopathy of unclear etiology, possible drug overdose. differential would be antifreeze ingestion. Serum osmolarity and measured osmolarity ordered. There is a helper electrical investigation ongoing. Apparently suicide notes were left in the home but were suspicious. Psychiatric consult recommends inpatient rehab and medical history stable neurology consult. ethylene glycol to be checked. EEG showed mild metabolic encephalopathy 2. Acute hypoxic respiratory failure requiring intubation and mechanical ventilation. Extubated on 07/04 currently on 2 L of oxygenation saturating well Patient is being managed by Dr. Mcgee. 3. Rhabdomyolysis without any kidney failure,. IV fluids at 150 mL per hour. CPK currently at 20,000 worse than yesterday Repeat CK daily. Oral fluid hydration thereafter 4. Left hip pain with left femoral acetabular impingement syndrome, CAT scan of the pelvis was requested showing increased size of hip abductors with loss of normal muscle planes, could be related to mass hematoma myositis, by MRI suggested, Dr. Black to see the patient orthopedics, patient will be physical therapy as well, pain control would be with Toradol, unable to provide opiates at this time secondary to history off alcohol dependency and history of drug dependency abuse in the past. Negative for DVT on Doppler exam bilateral legs 5. Acute slurred speech /dysarthria, occurring 1 day after extubation, high risk for acute neurologic events, MRI of the brain is is requested, aspirin initiated, unable to start statin secondary to rhabdomyolysis. If MRI imaging in thehip region shows hematoma formation, aspirin needs to be discontinued 4. History of tobacco use and dependence. 5. History of gastroesophageal reflux disease and GI prophylaxis. Protonix. 6. History of hypertension. Monitor blood pressure closely. 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 Cautioned regarding to mood disturbance, we would not anticipate sending him on a tapering prednisone to the mental health unit 9. DVT prophylaxis. Lovenox. Discharge planning mental health unit once medically cleared
[2017-07-06] MEDS: methylPREDNISolone SOD SUCCI 125 MG/2 ML VIAL IV SCH ×2 (19:29→23:39)
[2017-07-06] MEDS: GABAPENTIN 300 MG CAP PO SCH (22:05)
[2017-07-07] MEDS: KETOROLAC 30 MG/ML 1 ML VIAL IVP SCH ×4 (05:53→23:22)
[2017-07-07] MEDS: SODIUM CHLORIDE 0.9% 1,000 ML IV SCH ×3 (05:55→20:05)
[2017-07-07] MEDS: NICOTINE 21MG/24HR PATCH TRANSDERM SCH ×2 (08:39→08:44)
[2017-07-07] MEDS: ASPIRIN 81 MG PO SCH (08:40)
[2017-07-07] MEDS: amLODIPine 5 MG TAB PO SCH (08:40)
[2017-07-07] MEDS: PANTOPRAZOLE 40 MG TABLET PO SCH (08:40)
[2017-07-07] MEDS: GABAPENTIN 300 MG CAP PO SCH ×2 (08:40→20:04)
[2017-07-07] MEDS: ENOXAPARIN 40 MG/0.4 ML SYRINGE SQ SCH (08:40)
[2017-07-07] MEDS: methylPREDNISolone SOD SUCCI 125 MG/2 ML VIAL IV SCH (08:40)
[2017-07-07] MEDS ORDERED: POTASSIUM CHLORIDE ER 10 MEQ TAB.ER.PRT PO SCH (09:00)
[2017-07-07] MEDS ORDERED: FUROSEMIDE 40 MG TAB PO SCH (09:00)
[2017-07-07 09:54] LABS: ALT 252 U/L (21-72); AST 301 U/L (17-59); Anion Gap 10 mmol/L; Blood Urea Nitrogen 15 mg/dL (9-20); Calcium 8.9 mg/dL (8.4-10.2); Carbon Dioxide 27 mmol/L (22-30); Chloride 102 mmol/L (98-107); Glucose 126 mg/dL (74-99); Potassium 4.4 mmol/L (3.5-5.1); Sodium 139 mmol/L (137-145)
[2017-07-07] MEDS: THIAMINE 100 MG TAB PO SCH (11:10)
--- NOTE | 2017-07-07 13:24 | P.PN ---
Subjective This is a 62-year-old male patient of Dr. Wilson with past medical history of hypertension, gastroesophageal reflux disease, tobacco use and dependence. Patient last saw Dr. Wilson last week at that time and blood pressure 186/100 there is question whether he receiving samples for blood pressure medicine from the office. He is gone therefore an employee physical. He has been prescribed [place] in the past and received 60 tablets on May 21 and previous to that it was February 26 for 60 tablets. Patient was seen by his in the morning around 11:00 and they had an argument. At 5:00 when she came home he was slumped in a chair in the couch. She then went in the house and did not talk to him and assume that he left for work but later found him at around 9:30 still slumped in the chair and 911 was called. Narcan was given by EMS and 2 doses of Narcan were given in the emergency center. He was intubated and started on fluid resuscitation. Patient was admitted to the intensive care unit. His white count was 14, lactic acid was 2.5 and repeat 0.7, AST 159 and ALT 83, total CK was 19,980. Urinalysis was cloudy, nitrate and leukoesterase were negative positive hyalin cast. Urine drug screen was positive for opiates and tricyclic antidepressants and marijuana. Salicylate level acetaminophen and serum alcohol levels were negative. Initially venous blood gases were pH of 7.25, pCO2 of 40, bicarb 17, carbon dioxide 4. Chest x-ray was unremarkable. CT of the brain. CT of the cervical spine shows spondylosis and stenosis. Repeat chest x-ray done this morning shows no acute process. Patient has been afebrile, blood pressure is been on the higher side. EEG has been ordered an MRI of the brain. Consult in place for pulmonary medicine, neurology and psychiatry. Patient is currently off sedation with no response, no gag reflex. 07/04 patient extubated today. Does not answer any questions. Would not talk about what medication he took. He does admit to suicidal ideation. Denies any shortness of breath or chest pain. Blood pressure 177/86 heart rate 90. Labs suggest increase in LFTs with increasing creatinine kinase 18,000. Patient will be transferred to inpatient psych once medically stable. Norvasc 5 initiated for blood pressure control continue IV fluids for rhabdomyolysis 07/05:, Patient is in at bedside with stepdaughter, and stepdaughter mentioned that his speech is slurred today, no other focal neurologic deficit, this is new after his extubation, it is not for select he thinks he was, however speech is not as clear, he also has left hip pain, x-ray shows left femoral acetabular impingement, CAT scan of the pelvis was requested, results are currently pending , we have requested Dr. Khalil to see the patient secondary to the x-ray findings and significant left hip pain, difficulty ambulating. MRI of the brain is requested to evaluate for acute CVA with slurred speech, aspirin 81 mg to be started, patient might need statins however creatinine kinase is elevated and hence statin not started. Current CPK are to 15,000. Creatinine of 0.8 07/06: Patient's mood is upbeat, patient has left hip pain, and swelling the left leg, left tight, left hip pain, patient relates to increasing difficulty in raising of the ankle, suspicious for pyriformis syndrome rather than for peroneal nerve issues, Dopplers of the leg is negative, patient does not have any back pain he does have quadratus lumborum but not spine pain. Orthopedics has seen the patient, no surgical intervention, physical therapy MRI, of the hip and MRI of the brain is currently pending, speech is normalized 07/07: Patient was evaluated with sitter at the bedside. He still has complaints of left thigh and hip pain. Report today that left foot feels numb, numbness is in his left great toe, anterior foot, and lateral parada indicating a problem in his L4. Will proceed with MRI today of his head and left femur/thigh. Left leg edema has improved. Creatine Kinase continues to be elevated at , worse from yesterday and also his AST and ALT continue to be elevated. Encourage oral hydration, continue with IV hydration. Objective - Vital Signs Vital signs: Vital Signs Temp 96.6 F L 07/07/17 05:51 Pulse 86 07/07/17 08:00 Resp 18 07/07/17 08:00 BP 145/85 07/07/17 05:51 Pulse Ox 94 L 07/07/17 05:52 Intake & Output 07/06/17 07/07/17 07/07/17 18:59 06:59 18:59 Intake Total 600 Output Total 0 700 Balance 600 -700 Weight 73.5 kg 71.5 kg Intake: Oral 600 Tube Feeding 0 Output: Urine 0 700 Other: Voiding Method Urinal Toilet Toilet Urinal # Voids 3 1 # Bowel Movements 0 - Exam - Constitutional General appearance: Present: cooperative, no acute distress - EENT Eyes: Present: anicteric sclerae, EOMI, dentition normal, normal appearance ENT: Present: NA/AT, normal oropharynx - Neck Neck: Present: normal ROM. Absent: lymphadenopathy, other, rigidity, stridor, thyromegaly - Respiratory Respiratory: bilateral: CTA, negative: dullness, rales, rhonchi, wheezing, prolonged expiration - Cardiovascular Rhythm: regular Heart sounds: normal: S1, S2 Abnormal Heart Sounds: Present: systolic murmur. Absent: diastolic murmur, rub , S3 Gallop, S4 Gallop, click, other - Gastrointestinal General gastrointestinal: Present: organomegaly, soft - Integumentary Integumentary: Present: normal, normal turgor - Neurologic Neurologic: Present: CNII-XII intact - Musculoskeletal Musculoskeletal: Present: gait normal (Impaired balance mainly in the left hip, patient has difficulty in flexing ankle left side), strength equal bilaterally - Psychiatric Psychiatric: Present: A&O x's 3, appropriate affect - Labs CBC & Chem 7: 07/05/17 07:35 07/07/17 08:05 Labs: Abnormal Lab Results - Last 24 Hours (Table) 07/07/17 Range/Units 08:05 Glucose 126 H (74-99) mg/dL AST 301 H (17-59) U/L ALT 252 H (21-72) U/L Assessment and Plan Plan: 1. Metabolic encephalopathy of unclear etiology, possible drug overdose. differential would be antifreeze ingestion. Serum osmolarity and measured osmolarity ordered. 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 Apparently suicide notes were left in the home but were suspicious. Psychiatric consult recommends inpatient rehab and medical history stable neurology consult. ethylene glycol was negative. EEG showed mild metabolic encephalopathy 2. Acute hypoxic respiratory failure requiring intubation and mechanical ventilation. Extubated on 07/04 currently on 2 L of oxygenation saturating well Patient is being managed by Dr. Mcgee. 3. Rhabdomyolysis without any kidney failure, IV fluids at 150 mL per hour. CPK currently at 20,000 worse than yesterday Repeat CK daily. Oral fluid hydration thereafter 4. Left hip pain with left femoral acetabular impingement syndrome, CAT scan of the pelvis was requested showing increased size of hip abductors with loss of normal muscle planes, could be related to mass hematoma myositis, by MRI suggested, Dr. Black to see the patient orthopedics, patient will be physical therapy as well, pain control would be with Toradol, unable to provide opiates at this time secondary to history off alcohol dependency and history of drug dependency abuse in the past. Negative for DVT on Doppler exam bilateral legs 5. Acute slurred speech /dysarthria, occurring 1 day after extubation, high risk for acute neurologic events, MRI of the brain is is requested, aspirin initiated, unable to start statin secondary to rhabdomyolysis. If MRI imaging in the hip region shows hematoma formation, aspirin needs to be discontinued 4. History of tobacco use and dependence. 5. History of gastroesophageal reflux disease and GI prophylaxis. Protonix. 6. History of hypertension. Monitor blood pressure closely. 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 Cautioned regarding to mood disturbance, we would not anticipate sending him on a tapering prednisone to the mental health unit 9. DVT prophylaxis. Lovenox. Discharge planning mental health unit once medically cleared The above impression and plan of care have been discussed and directed by signing physician. Rose Prasad nurse practitioner acting as scribe for signing physician.
--- NOTE | 2017-07-07 17:49 | MR ---
EXAMINATION TYPE: MR femur/thigh LT wo con DATE OF EXAM: 07/07/2017 COMPARISON: NONE HISTORY: Hematoma with impingement femoroacetabulum TECHNIQUE: Multiplanar, multisequence sequences of the left hip and thigh were acquired. Imaging was obtained from the hip to the knee. The sequences included spin echo T1, T2*, T2 fat-suppressed and fa t-suppressed T1-weighted imaging. Intravenous gadolinium contrast was not utilized. FINDINGS: SKELETAL STRUCTURES: The bone marrow and cortex pattern is abnormal. SOFT TISSUES: There is diffuse and ill-defined T1 and T2 prolongation throughout the medial (adductor musculature) and posterior compartment musculature, including the fascia, with near-complete sparing of the anteri or muscular compartment. The changes mildly enlarged the musculature, but there are no focal fluid li ke collections. There are a few scattered small T2 shortening foci, consistent with hemosiderin. The vasculature is unremarkable as seen. The subcutaneous adipose compartment also shows nonspecific mild soft tissue swelling circumferential ly again without focal fluid like collections. IMPRESSION: DIFFUSE EDEMATOUS CHANGES THROUGHOUT THE ADDUCTOR AND POSTERIOR COMPARTMENT MUSCULATURE, CONSISTENT W ITH THE CLINICALLY SUBMITTED HISTORY.
--- NOTE | 2017-07-07 18:01 | MR ---
EXAMINATION TYPE: MR brain wo/w con DATE OF EXAM: 07/07/2017 5:09 PM COMPARISON: NONE HISTORY: slurred speech CONTRAST: Patient received 7 mL intravenous Gadavist gadolinium contrast. Multiplanar and multispin-echo imaging of the brain was performed . Pre and post contrast enhanced i mages are obtained. The ventricles, basal cisterns and sulci overlying the cerebral convexities are mildly enlarged. There is evidence of mild periventricular white matter ischemic demyelination. Remote deep white matter insults are also noted. No acute edema is seen on diffusion weighted imaging. There is no evidence for midline shift or mass effect. Acute intracranial hemorrhage or extra-axial collection is not evident. No enhancing lesions are seen. Changes of chronic right-sided mastoiditis. Paranasal sinuses well aerated. Incidental Taylor mckeon IMPRESSION: Age-related atrophic and chronic small vessel ischemic change. No acute intracranial process at this time. No enhancing lesions are seen.
[2017-07-07] MEDS: POTASSIUM CHLORIDE ER 20 MEQ TAB.ER PO SCH (20:04)
[2017-07-07] MEDS: MELATONIN 5 MG TABLET PO SCH (20:04)
[2017-07-08] MEDS: SODIUM CHLORIDE 0.9% 1,000 ML IV SCH ×4 (00:26→20:37)
[2017-07-08] MEDS: KETOROLAC 30 MG/ML 1 ML VIAL IVP SCH ×3 (06:03→18:05)
[2017-07-08 08:17] LABS: Basophils % (A) 0 %; Eosinophils # (A) 0.2 k/uL (0-0.7); Eosinophils % (A) 1 %; HGB 12.1 gm/dL (13.0-17.5); Lymphocytes # (A) 2.1 k/uL (1.0-4.8); Lymphocytes % (A) 17 %; MCH 30.8 pg (25.0-35.0); MCHC 32.6 g/dL (31.0-37.0); MCV 94.4 fL (80.0-100.0); Mean Platelet Volume 7.8; Monocytes # (A) 1.2 k/uL (0-1.0); Monocytes % (A) 10 %; Neutrophils # (A) 8.7 k/uL (1.3-7.7); Neutrophils % (A) 70 %; Platelet Count 250 k/uL (150-450); RBC 3.92 m/uL (4.30-5.90); RDW 13.3 % (11.5-15.5); WBC 12.5 k/uL (3.8-10.6)
[2017-07-08 08:34] LABS: Anion Gap 9 mmol/L; Blood Urea Nitrogen 15 mg/dL (9-20); Calcium 8.5 mg/dL (8.4-10.2); Carbon Dioxide 27 mmol/L (22-30); Chloride 106 mmol/L (98-107); Glucose 86 mg/dL (74-99); Potassium 3.7 mmol/L (3.5-5.1); Sodium 142 mmol/L (137-145)
[2017-07-08] MEDS: ENOXAPARIN 40 MG/0.4 ML SYRINGE SQ SCH (08:36)
[2017-07-08] MEDS: PANTOPRAZOLE 40 MG TABLET PO SCH (08:37)
[2017-07-08] MEDS: ASPIRIN 81 MG PO SCH (08:37)
[2017-07-08] MEDS: FUROSEMIDE 40 MG TAB PO SCH ×2 (08:37→18:05)
[2017-07-08] MEDS: GABAPENTIN 300 MG CAP PO SCH ×2 (08:37→20:38)
[2017-07-08] MEDS: POTASSIUM CHLORIDE ER 20 MEQ TAB.ER PO SCH ×2 (08:37→20:38)
[2017-07-08] MEDS: amLODIPine 5 MG TAB PO SCH (08:37)
[2017-07-08] MEDS: NICOTINE 21MG/24HR PATCH TRANSDERM SCH (08:46)
[2017-07-08 08:55] LABS: Creatine Kinase 7339 U/L (55-170)
--- NOTE | 2017-07-08 14:01 | P.DS ---
Providers Date of admission: 07/03/17 01:19 Attending physician: Purvi Ellington Consults: 07/03/17 01:15 Consult Physician Routine Consulting Provider: Jose Mcgee Consult Reason/Comments: icu Do you want consulting provider notified?: Yes 07/03/17 09:57 Consult Physician Routine Consulting Provider: Jeremy Dorsey Consult Reason/Comments: metabolic encephalopathy Do you want consulting provider notified?: Yes 07/04/17 10:13 Consult Physician Urgent Consulting Provider: Katelyn Marmolejo Consult Reason/Comments: suicide attempt Do you want consulting provider notified?: Already Contacted 07/05/17 15:46 Consult Physician Routine Consulting Provider: Troy Black Consult Reason/Comments: left impingemt femoroacetabular Do you want consulting provider notified?: Yes Primary care physician: [facility] Hospital Course: This is a 62-year-old male patient of Dr. Wilson with past medical history of hypertension, gastroesophageal reflux disease, tobacco use and dependence. Patient last saw Dr. Wilson last week at that time and blood pressure 186/100 there is question whether he receiving samples for blood pressure medicine from the office. He is gone therefore an employee physical. He has been prescribed [place] in the past and received 60 tablets on May 21 and previous to that it was February 26 for 60 tablets. Patient was seen by his in the morning around 11:00 and they had an argument. At 5:00 when she came home he was slumped in a chair in the couch. She then went in the house and did not talk to him and assume that he left for work but later found him at around 9:30 still slumped in the chair and 911 was called. Narcan was given by EMS and 2 doses of Narcan were given in the emergency center. He was intubated and started on fluid resuscitation. Patient was admitted to the intensive care unit. His white count was 14, lactic acid was 2.5 and repeat 0.7, AST 159 and ALT 83, total CK was 19,980. Urinalysis was cloudy, nitrate and leukoesterase were negative positive hyalin cast. Urine drug screen was positive for opiates and tricyclic antidepressants and marijuana. Salicylate level acetaminophen and serum alcohol levels were negative. Initially venous blood gases were pH of 7.25, pCO2 of 40, bicarb 17, carbon dioxide 4. Chest x-ray was unremarkable. CT of the brain. CT of the cervical spine shows spondylosis and stenosis. Repeat chest x-ray done this morning shows no acute process. Patient has been afebrile, blood pressure is been on the higher side. EEG has been ordered an MRI of the brain. Consult in place for pulmonary medicine, neurology and psychiatry. Patient is currently off sedation with no response, no gag reflex. 07/04 patient extubated today. Does not answer any questions. Would not talk about what medication he took. He does admit to suicidal ideation. Denies any shortness of breath or chest pain. Blood pressure 177/86 heart rate 90. Labs suggest increase in LFTs with increasing creatinine kinase 18,000. Patient will be transferred to inpatient psych once medically stable. Norvasc 5 initiated for blood pressure control continue IV fluids for rhabdomyolysis 07/05:, Patient is in at bedside with stepdaughter, and stepdaughter mentioned that his speech is slurred today, no other focal neurologic deficit, this is new after his extubation, it is not for select he thinks he was, however speech is not as clear, he also has left hip pain, x-ray shows left femoral acetabular impingement, CAT scan of the pelvis was requested, results are currently pending , we have requested Dr. Khalil to see the patient secondary to the x-ray findings and significant left hip pain, difficulty ambulating. MRI of the brain is requested to evaluate for acute CVA with slurred speech, aspirin 81 mg to be started, patient might need statins however creatinine kinase is elevated and hence statin not started. Current CPK are to 15,000. Creatinine of 0.8 07/06: Patient's mood is upbeat, patient has left hip pain, and swelling the left leg, left tight, left hip pain, patient relates to increasing difficulty in raising of the ankle, suspicious for pyriformis syndrome rather than for peroneal nerve issues, Dopplers of the leg is negative, patient does not have any back pain he does have quadratus lumborum but not spine pain. Orthopedics has seen the patient, no surgical intervention, physical therapy MRI, of the hip and MRI of the brain is currently pending, speech is normalized 07/07: Patient was evaluated with sitter at the bedside. He still has complaints of left thigh and hip pain. Report today that left foot feels numb, numbness is in his left great toe, anterior foot, and lateral parada indicating a problem in his L4. Will proceed with MRI today of his head and left femur/thigh. Left leg edema has improved. Creatine Kinase continues to be elevated at , worse from yesterday and also his AST and ALT continue to be elevated. Encourage oral hydration, continue with IV hydration. 07/08: Patient was evaluated with the sitter at the bedside today for suicide precautions. Patient reports left thigh and hip are still painful although slightly improved from yesterday, he is still having slight numbness in the left foot. Creatinine kinase improved significantly from 15,627 to 7339. MRI of the left femur shows diffuse edematous changes throughout the abductor and posterior compartment musculature. Brain MRI shows age-related atrophic and chronic small vessel ischemic changes, with no acute intracranial processes or lesions. Patient is stable and cleared medically, he'll be transferred to inpatient psychiatric unit. Discharge diagnoses 1. Metabolic encephalopathy 2. Acute hypoxic respiratory failure requiring intubation and mechanical ventilation. Extubated on 07/04 3. Rhabdomyolysis without any kidney failure 4. Left hip pain with left femoral acetabular impingement syndrome 5. Acute slurred speech /dysarthria, MRI negative for any acute stroke. 4. History of tobacco use and dependence. 5. History of gastroesophageal reflux disease 6. History of hypertension 7 History of alcohol abuse last alcohol intake tilley Friday, July 02,= 8 basilar infiltrates noted on computed tomography scan 9.Weakness off the left dorsiflexion ankle/leg Discharge planning mental health The above impression and plan of care have been discussed and directed by signing physician. Rose Prasad nurse practitioner acting as scribe for signing physician. Patient Condition at Discharge: Stable Plan - Discharge Summary New Discharge Prescriptions: New amLODIPine [Norvasc] 5 mg PO DAILY #30 tab Aspirin 81 mg PO DAILY chew Furosemide [Lasix] 40 mg PO BID@0900,1600 #60 tab Gabapentin [Neurontin] 300 mg PO BID #60 cap Melatonin 5 mg PO HS #30 tablet Potassium Chloride ER [K-Dur 20] 20 meq PO BID #60 tab.er.prt Thiamine [Vitamin B-1] 100 mg PO DAILY@1200 #30 tab Discharge Medication List Aspirin 81 mg PO DAILY chew 07/08/17 [Rx] Furosemide [Lasix] 40 mg PO BID@0900,1600 #60 tab 07/08/17 [Rx] Gabapentin [Neurontin] 300 mg PO BID #60 cap 07/08/17 [Rx] Melatonin 5 mg PO HS #30 tablet 07/08/17 [Rx] Potassium Chloride ER [K-Dur 20] 20 meq PO BID #60 tab.er.prt 07/08/17 [Rx] Thiamine [Vitamin B-1] 100 mg PO DAILY@1200 #30 tab 07/08/17 [Rx] amLODIPine [Norvasc] 5 mg PO DAILY #30 tab 07/08/17 [Rx] Follow up Appointment(s)/Referral(s): Cuauhtemoc Wilson DO [Primary Care Provider] - 1-2 days (office said they will call patient to make appointment.) Patient Instructions/Handouts: Suicide Prevention for Adults (DC) Activity/Diet/Wound Care/Special Instructions: Cardiac diet. Activity as tolerated. Discharge Disposition: TRANSFER TO PSYCH HOSP/UNIT
[2017-07-08] MEDS: THIAMINE 100 MG TAB PO SCH (14:15)
[2017-07-08] MEDS: MELATONIN 5 MG TABLET PO SCH (20:38)
[2017-07-08 22:47] VITALS: RESP 16
[2017-07-09] MEDS: KETOROLAC 30 MG/ML 1 ML VIAL IVP SCH ×3 (06:39→12:06)
[2017-07-09] MEDS: SODIUM CHLORIDE 0.9% 1,000 ML IV SCH ×2 (08:03→09:41)
[2017-07-09] MEDS: POTASSIUM CHLORIDE ER 20 MEQ TAB.ER PO SCH (09:12)
[2017-07-09] MEDS: ENOXAPARIN 40 MG/0.4 ML SYRINGE SQ SCH (09:12)
[2017-07-09] MEDS: ASPIRIN 81 MG PO SCH (09:12)
[2017-07-09] MEDS: GABAPENTIN 300 MG CAP PO SCH (09:13)
[2017-07-09] MEDS: PANTOPRAZOLE 40 MG TABLET PO SCH (09:13)
[2017-07-09] MEDS: NICOTINE 21MG/24HR PATCH TRANSDERM SCH (09:13)
[2017-07-09] MEDS: amLODIPine 5 MG TAB PO SCH (09:13)
[2017-07-09] MEDS: FUROSEMIDE 40 MG TAB PO SCH ×2 (09:13→14:57)
[2017-07-09 11:57] LABS: ALT 235 U/L (21-72); AST 122 U/L (17-59); Alkaline Phosphatase 66 U/L (38-126); Anion Gap 10 mmol/L; Blood Urea Nitrogen 14 mg/dL (9-20); Calcium 8.7 mg/dL (8.4-10.2); Carbon Dioxide 27 mmol/L (22-30); Chloride 102 mmol/L (98-107); Glucose 85 mg/dL (74-99); Potassium 4.2 mmol/L (3.5-5.1); Sodium 139 mmol/L (137-145); Total Bilirubin 0.6 mg/dL (0.2-1.3); Total Protein 5.5 g/dL (6.3-8.2)
[2017-07-09] MEDS: THIAMINE 100 MG TAB PO SCH (12:08)
--- NOTE | 2017-07-09 14:35 | P.PN ---
Subjective This is a 62-year-old male patient of Dr. Wilson with past medical history of hypertension, gastroesophageal reflux disease, tobacco use and dependence. Patient last saw Dr. Wilson last week at that time and blood pressure 186/100 there is question whether he receiving samples for blood pressure medicine from the office. He is gone therefore an employee physical. He has been prescribed [place] in the past and received 60 tablets on May 21 and previous to that it was February 26 for 60 tablets. Patient was seen by his in the morning around 11:00 and they had an argument. At 5:00 when she came home he was slumped in a chair in the couch. She then went in the house and did not talk to him and assume that he left for work but later found him at around 9:30 still slumped in the chair and 911 was called. Narcan was given by EMS and 2 doses of Narcan were given in the emergency center. He was intubated and started on fluid resuscitation. Patient was admitted to the intensive care unit. His white count was 14, lactic acid was 2.5 and repeat 0.7, AST 159 and ALT 83, total CK was 19,980. Urinalysis was cloudy, nitrate and leukoesterase were negative positive hyalin cast. Urine drug screen was positive for opiates and tricyclic antidepressants and marijuana. Salicylate level acetaminophen and serum alcohol levels were negative. Initially venous blood gases were pH of 7.25, pCO2 of 40, bicarb 17, carbon dioxide 4. Chest x-ray was unremarkable. CT of the brain. CT of the cervical spine shows spondylosis and stenosis. Repeat chest x-ray done this morning shows no acute process. Patient has been afebrile, blood pressure is been on the higher side. EEG has been ordered an MRI of the brain. Consult in place for pulmonary medicine, neurology and psychiatry. Patient is currently off sedation with no response, no gag reflex. 07/04 patient extubated today. Does not answer any questions. Would not talk about what medication he took. He does admit to suicidal ideation. Denies any shortness of breath or chest pain. Blood pressure 177/86 heart rate 90. Labs suggest increase in LFTs with increasing creatinine kinase 18,000. Patient will be transferred to inpatient psych once medically stable. Norvasc 5 initiated for blood pressure control continue IV fluids for rhabdomyolysis 07/05:, Patient is in at bedside with stepdaughter, and stepdaughter mentioned that his speech is slurred today, no other focal neurologic deficit, this is new after his extubation, it is not for select he thinks he was, however speech is not as clear, he also has left hip pain, x-ray shows left femoral acetabular impingement, CAT scan of the pelvis was requested, results are currently pending , we have requested Dr. Khalil to see the patient secondary to the x-ray findings and significant left hip pain, difficulty ambulating. MRI of the brain is requested to evaluate for acute CVA with slurred speech, aspirin 81 mg to be started, patient might need statins however creatinine kinase is elevated and hence statin not started. Current CPK are to 15,000. Creatinine of 0.8 07/06: Patient's mood is upbeat, patient has left hip pain, and swelling the left leg, left tight, left hip pain, patient relates to increasing difficulty in raising of the ankle, suspicious for pyriformis syndrome rather than for peroneal nerve issues, Dopplers of the leg is negative, patient does not have any back pain he does have quadratus lumborum but not spine pain. Orthopedics has seen the patient, no surgical intervention, physical therapy MRI, of the hip and MRI of the brain is currently pending, speech is normalized 07/07: Patient was evaluated with sitter at the bedside. He still has complaints of left thigh and hip pain. Report today that left foot feels numb, numbness is in his left great toe, anterior foot, and lateral parada indicating a problem in his L4. Will proceed with MRI today of his head and left femur/thigh. Left leg edema has improved. Creatine Kinase continues to be elevated at , worse from yesterday and also his AST and ALT continue to be elevated. Encourage oral hydration, continue with IV hydration. 07/09: Patient's doing well, was in very good spirits today. Reports of leg pain and numbness are improving. Creatinine kinase improving 2948 today. He is stable for discharge once inpatient psychiatric bed becomes available. Apparently psychiatry unit here does not accept his insurance, so SW is currently looking for placement at an outside facility. Objective - Vital Signs Vital signs: Vital Signs Temp 97.5 F L 07/09/17 06:30 Pulse 74 07/09/17 06:30 Resp 16 07/09/17 06:30 BP 144/77 07/09/17 06:30 Pulse Ox 94 L 07/09/17 06:30 Intake & Output 07/08/17 07/09/17 07/09/17 18:59 06:59 18:59 Weight 72 kg Other: Voiding Method Toilet Urinal # Voids 2 2 - Exam - Constitutional General appearance: Present: cooperative, no acute distress - EENT Eyes: Present: anicteric sclerae, EOMI, dentition normal, normal appearance ENT: Present: NA/AT, normal oropharynx - Neck Neck: Present: normal ROM. Absent: lymphadenopathy, other, rigidity, stridor, thyromegaly - Respiratory Respiratory: bilateral: CTA, negative: dullness, rales, rhonchi, wheezing, prolonged expiration - Cardiovascular Rhythm: regular Heart sounds: normal: S1, S2 Abnormal Heart Sounds: Present: systolic murmur. Absent: diastolic murmur, rub , S3 Gallop, S4 Gallop, click, other - Gastrointestinal General gastrointestinal: Present: organomegaly, soft - Integumentary Integumentary: Present: normal, normal turgor - Neurologic Neurologic: Present: CNII-XII intact - Musculoskeletal Musculoskeletal: Present: gait normal (Impaired balance mainly in the left hip, patient has difficulty in flexing ankle left side), strength equal bilaterally - Psychiatric Psychiatric: Present: A&O x's 3, appropriate affect - Labs CBC & Chem 7: 07/08/17 07:48 07/09/17 08:11 Labs: Abnormal Lab Results - Last 24 Hours (Table) 07/09/17 07/09/17 Range/Units 08:11 08:11 AST 122 H (17-59) U/L ALT 235 H (21-72) U/L Creatine Kinase 2949 H (55-170) U/L Total Protein 5.5 L (6.3-8.2) g/dL Albumin 3.0 L (3.5-5.0) g/dL Assessment and Plan Plan: 1. Metabolic encephalopathy of unclear etiology, possible drug overdose. Apparently suicide notes were left in the home but were suspicious. Psychiatric consult recommends inpatient rehab and medical history stable neurology consult. ethylene glycol was negative. EEG showed mild metabolic encephalopathy. Stable and improved 2. Acute hypoxic respiratory failure requiring intubation and mechanical ventilation. Extubated on 4/13 currently on 2 L of oxygenation saturating well Patient is being managed by Dr. Mcgee, doing well 3. Rhabdomyolysis without any kidney failure, creatinine kinase 2949 today, improving. 4. Left hip pain with left femoral acetabular impingement syndrome, femur MRI shows diffuse of edematous changes. Negative for DVT on Doppler exam bilateral legs 5. Acute slurred speech /dysarthria, occurring 1 day after extubation, MRI shows age-related atrophic and chronic small vessel ischemic changes, no intracranial processes. 4. History of tobacco use and dependence. 5. History of gastroesophageal reflux disease and GI prophylaxis. 6. History of hypertension. Norvasc 5 mg daily 7 History of alcohol abuse, last alcohol intake tilley July 02, monitor for DTs, we would provide Librium 10 mg q 6 when necessary 8 basilar infiltrates noted on computed tomography scan, incentive spirometry 9. Weakness off the left dorsiflexion ankle/leg, symptoms are improving 9. DVT prophylaxis. Lovenox. Discharge planning mental health unit, patient medically cleared waiting for inpatient psychiatric bed at a different facility The above impression and plan of care have been discussed and directed by signing physician. Rose Prasad nurse practitioner acting as scribe for signing physician.
[2017-07-09 16:41] VITALS: BP 142/81; PULSE 79; TEMP 98.1
== END 2017-07-09 17:47 | DRG 917 ==
LOC: EC 23:29 → 6ICU 07-03 01:19 → 4MS4W 07-04 18:39
PROVIDERS: ADMIT Internal Medicine; ATTEND Internal Medicine
PROC: 0BH17EZ Insertion of Endotracheal Airway into Trachea, Via Natural or Artificial Opening (ICD-10-PCS; principal; 2017-07-02)
PROC: 5A1945Z Respiratory Ventilation, 24-96 Consecutive Hours (ICD-10-PCS; 2017-07-02)
DX: T40.602A Poisoning by unspecified narcotics, intentional self-harm, initial encounter (principal); J96.01 Acute respiratory failure with hypoxia; G92 Toxic encephalopathy; E87.4 Mixed disorder of acid-base balance; M62.82 Rhabdomyolysis; M48.02 Spinal stenosis, cervical region; K21.9 Gastro-esophageal reflux disease without esophagitis; I10 Essential (primary) hypertension; Y90.0 Blood alcohol level of less than 20 mg/100 ml; R00.0 Tachycardia, unspecified; M47.9 Spondylosis, unspecified; M25.852 Other specified joint disorders, left hip; T43.012A Poisoning by tricyclic antidepressants, intentional self-harm, initial encounter; T40.7X2A Poisoning by cannabis (derivatives), intentional self-harm, initial encounter; R60.0 Localized edema; R47.1 Dysarthria and anarthria; F10.10 Alcohol abuse, uncomplicated; F32.9 Major depressive disorder, single episode, unspecified; G89.29 Other chronic pain; R01.1 Cardiac murmur, unspecified; G57.02 Lesion of sciatic nerve, left lower limb; F12.90 Cannabis use, unspecified, uncomplicated; F17.210 Nicotine dependence, cigarettes, uncomplicated; Z79.891 Long term (current) use of opiate analgesic; Z79.899 Other long term (current) drug therapy
CPT/HCPCS: 31500; 36415; 36600; 70450; 70553; 71045; 72125; 73502; 74177; 80048; 80053; 80061; 80306; 80307; 80320; 80377; 81001; 82040; 82075; 82140; 82375; 82550; 82553; 82803; 82805; 83036; 83520; 83605; 83735; 83930; 84100; 84450; 84460; 84484; 84600; 85025; 85610; 85730; 87070; 87086; 87205; 93005; 94002; 94003; 94640; 94760; 95816; 96361; 96374; 96375; 99291

== ENCOUNTER → 2017-08-27 | Outpatient (CLI) | payer OTHER ==
--- NOTE | 2017-08-27 15:57 | MR ---
EXAMINATION TYPE: MR lumbar spine wo con DATE OF EXAM: 08/27/2017 COMPARISON: 12/20/2013 HISTORY: Radiculopathy, lumbosacral region CONTRAST: 0 mL intravenous Gadavist. TECHNIQUE: Multiplanar, multisequence images of the lumbar spine were acquired. FINDINGS: L5-S1: There is a new large right paracentral disc herniation. This has right S1 exiting nerve root c ompression and displacement. Spinal canal stenosis is not otherwise identified. There is moderate amber ateral foraminal narrowing. L4-L5: Stable Broad-based disc bulge is present with mild anterior thecal sac compression. No AP spin al canal stenosis present. Facet hypertrophy is present. Moderate right and mild left foraminal narro wing is present. L3-L4: Mild disc bulges and thecal sac flattening. No AP spinal canal stenosis or neural foraminal st enosis present. L2-L3: Tiny right paracentral and right lateral disc bulge is present with mild anterior thecal sac c ompression. This is contributing to moderate right foraminal stenosis. This may have nerve root conta ct. Correlate with radicular symptoms. This may have been present previously. The left foramen is pat ent. L1-L2: No significant disc bulge or disc herniation. There is some right lateral disc bulging of unce rtain clinical significance. No spinal canal stenosis. No foraminal stenosis. T12-L1: No significant disc bulge or disc herniation. No spinal canal stenosis. No foraminal stenos is. Cord terminates at the L1-L2 level. IMPRESSION: 1. Large right paracentral disc herniation L5-S1 likely with right S1 nerve root compression and disp lacement. Correlate with radicular symptoms. This is new from 2013. 2. Broad central disc bulge L4-5 with mild anterior thecal sac compression. 3. Tiny right paracentral right lateral disc bulge L2-L3. Correlate with right L3 radicular symptoms.
== END | disposition home or self-care (01) ==
LOC: RADMRIMAIN 06:26
PROVIDERS: ATTEND Psychiatry & Neurology Neurology
DX: M51.17 Intervertebral disc disorders with radiculopathy, lumbosacral region (principal)
CPT/HCPCS: 72148

== ENCOUNTER → 2017-12-15 | Outpatient (CLI) | payer OTHER ==
--- NOTE | 2017-12-15 12:46 | XR ---
EXAMINATION TYPE: XR chest 2V DATE OF EXAM: 12/15/2017 COMPARISON: Chest x-ray July 05, 2017 HISTORY: Presurgical study TECHNIQUE: Frontal and lateral views of the chest are obtained. FINDINGS: There is improved inspiration on current study. There is no focal air space opacity, pleur al effusion, or pneumothorax seen. Diffuse narrowing of trachea is again seen near the aortic knob. The cardiac silhouette size is within normal limits. Multilevel spurring in the thoracic spine is pr esent. IMPRESSION: No suspicious acute pulmonary process. Fairly moderate concentric distal tracheal narro wing redemonstrated.
[2017-12-15 13:01] LABS: Basophils # (A) 0.1 k/uL (0-0.2); Basophils % (A) 1 %; Eosinophils # (A) 0.2 k/uL (0-0.7); Eosinophils % (A) 2 %; HCT 48.8 % (39.0-53.0); HGB 16.2 gm/dL (13.0-17.5); Lymphocytes # (A) 1.7 k/uL (1.0-4.8); Lymphocytes % (A) 18 %; MCH 31.9 pg (25.0-35.0); MCHC 33.2 g/dL (31.0-37.0); MCV 96.1 fL (80.0-100.0); Mean Platelet Volume 7.2; Monocytes # (A) 0.9 k/uL (0-1.0); Monocytes % (A) 9 %; Neutrophils # (A) 6.5 k/uL (1.3-7.7); Neutrophils % (A) 69 %; Platelet Count 319 k/uL (150-450); RBC 5.08 m/uL (4.30-5.90); RDW 13.5 % (11.5-15.5); WBC 9.3 k/uL (3.8-10.6)
[2017-12-15 13:08] LABS: Anion Gap 10 mmol/L; Blood Urea Nitrogen 13 mg/dL (9-20); Calcium 9.8 mg/dL (8.4-10.2); Carbon Dioxide 24 mmol/L (22-30); Chloride 105 mmol/L (98-107); Glucose 99 mg/dL (74-99); Potassium 5.5 mmol/L (3.5-5.1); Sodium 139 mmol/L (137-145)
[2017-12-15 13:16] LABS: Partial Thromboplastin Time 23.9 sec (22.0-30.0)
== END | disposition home or self-care (01) ==
LOC: LABPAT 11:38
PROVIDERS: ATTEND Orthopaedic Surgery Orthopaedic Surgery of the Spine
DX: Z01.818 Encounter for other preprocedural examination (principal); Z01.812 Encounter for preprocedural laboratory examination; J39.8 Other specified diseases of upper respiratory tract; M48.07 Spinal stenosis, lumbosacral region
CPT/HCPCS: 36415; 71046; 80048; 85025; 85610; 85730; 87086

== ENCOUNTER 2017-12-18 07:27 | Day surgery (SDC) | payer OTHER ==
[2017-12-16 11:15] VITALS: BMI 22.7
[~2017-12-18 07:27] MED LIST changes: +BACITRACIN 50,000 UNIT, POLYMYXIN B 500,000 UNIT in SODIUM CHLORIDE 0.9% IRRIGATIO 1,00... IRRIGATION ONE; -Pre Op ABX Message 1 EACH MISC MISCELLANE ONE; +ceFAZolin IN SWFI 2 GM/20 ML SYRINGE IVP ONE
[2017-12-18] MEDS: LACTATED RINGERS 1,000 ML IV SCH ×2 (07:52→13:25)
[2017-12-18] MEDS ORDERED: LIDOCAINE 1% 20 ML VIAL (10MG/ML) FOR IV START INTRADERMA ONE (07:54)
[2017-12-18] MEDS ORDERED: ONDANSETRON 4 MG/2 ML VIAL ONE (07:55)
[2017-12-18] MEDS ORDERED: ONDANSETRON 4 MG/2 ML VIAL IVP ONE (08:01)
[2017-12-18] MEDS ORDERED: MIDAZOLAM 2 MG/2 ML VIAL IVP ONE (08:50)
[2017-12-18] MEDS ORDERED: fentaNYL (PF) 50 MCG/ML 2 ML AMP ONE (09:36)
[2017-12-18] MEDS ORDERED: PROPOFOL 10 MG/ML 20 ML VIAL IV ONE (09:36)
[2017-12-18] MEDS ORDERED: MIDAZOLAM 2 MG/2 ML VIAL ONE (09:36)
[2017-12-18] MEDS ORDERED: SUCCINYLCHOLINE CHLORIDE VIAL 200 MG/10 ML VIAL IV ONE (09:36)
[2017-12-18] MEDS ORDERED: LIDOCAINE 1% INJ 10MG/ML (20 ML MDV) ONE (09:36)
[2017-12-18] MEDS ORDERED: LIDOCAINE 0.5%-EPI 1:200,000 50 ML VIAL SQ ONE ×3 (10:05→10:17)
[2017-12-18] MEDS ORDERED: GELATIN SPONGE,ABSORB (LARGE) 1 EACH SPONGE TOPICAL ONE (10:17)
[2017-12-18] MEDS ORDERED: THROMBIN (BOVINE) 5,000 UNIT VIAL MISCELLANE ONE ×2 (10:17)
[2017-12-18] MEDS ORDERED: methylPREDNISolone ACETATE 80 MG/ML 1 ML VIAL INJ ONE ×2 (10:18→10:58)
[2017-12-18] MEDS ORDERED: ONDANSETRON 4 MG/2 ML VIAL IVP PRN (11:25)
[2017-12-18] MEDS ORDERED: KETOROLAC 30 MG/ML 1 ML VIAL IVP PRN (11:25)
[2017-12-18] MEDS ORDERED: HYDROmorphone 1 MG/ML 1 ML SYRINGE IVP PRN ×2 (11:25)
[2017-12-18] MEDS ORDERED: IBUPROFEN 600 MG TAB PO PRN (11:25)
[2017-12-18] MEDS ORDERED: BENZOCAINE/MENTHOL LOZENG 1 EACH LOZENGE MUCOUS MEM PRN (11:25)
[2017-12-18] MEDS ORDERED: HYDROcodone/APAP 5-325MG 1 EACH TAB PO PRN (11:25)
--- NOTE | 2017-12-18 11:36 | P.OP ---
Date of Procedure: 12/18/17 Preoperative Diagnosis: Spinal stenosis L4 5 Herniated nucleus pulposis L4 5 Herniated nucleus pulposis L5-S1 Lower extremity radiculopathy Lower extremity weakness Postoperative Diagnosis: Same Anesthesia: GETA Pathology: none sent Condition: stable Disposition: PACU Description of Procedure: BRIEF OPERATIVE NOTE Preoperative Diagnosis:Spinal stenosis L4 5 Herniated nucleus pulposis L4 5 Herniated nucleus pulposis L5-S1 Lower extremity radiculopathy Lower extremity weakness Postoperative Diagnosis: Same Procedure: Laminectomy and decompression L4 5 L5-S1 Discectomy for decompression L4 5 L5-S1 Use of fluoroscopic guidance Surgeon: Dr. Martel Rack Carrier: None Anesthesia: General anesthesia per Dr. Peres Estimated blood loss: Approximately 50 mL Complications: None apparent Components implanted: None Disposition: To recovery room in good stable condition. OPERATIVE INDICATIONS The patient has been having issues in their lower back and lower extremities. He is having significant back pain with lower extremity radiculopathy. He was having evidence of weakness particularly the left side and foot drop. He was found have disc herniations at L4 5 and L5-S1 with significant stenosis. His symptoms correlated well with his low back findings and imaging. The patient has been through conservative treatment. He was not having any prolonged benefit despite aggressive conservative treatment. We discussed various treatment options including surgery, and the patient wishes to proceed with surgery We discussed the risk, patient's alternatives and benefits of surgery including but not limited to, risk of bleeding risk of infection, risk of need for further surgery, risk of decreased, loss of motion, loss of function, nerve damage, paralysis, heart attack, blindness and . OPERATIVE SUMMARY After discussing all the risks, patient alternatives and benefits at length, the patient elected to proceed with surgical intervention, signed informed consent, and presented for their procedure. The patient was seen and examined in the preoperative holding area and the surgical site was marked. The patient was given antibiotics and brought to the operating room. The patient was sedated and intubated by anesthesia in standard fashion. The patient was positioned on to the operating room table in a prone position on the appropriate frame which was well-padded and well molded. We were careful to pad any bony prominences and pressure points. We were careful to maintain the patient's cervical spine and good neutral alignment and position throughout. The patient was prepped and draped in a normal standard fashion. An appropriate timeout and keystone protocol performed. We were able to proceed with the surgery. Fluoroscopy was utilized to establish the appropriate level. The local wound area was infiltrated with local anesthetic. An incision was made at the midline longitudinally over the appropriate levels at L4 5 and S1. Dissection was taken down subcutaneously to the level of the fascia which was split midline. Dissection was taken over the lamina. Intraoperative fluoroscopy was taken which showed a marker at the appropriate level at L5-S1. With the appropriate level positively confirmed, we were able to proceed with laminectomy. I started first at L4 5 and then worked to L5-S1. The wound was copiously irrigated and suctioned dry as had been done periodically throughout the case. I performed a laminectomy with a combination of curettes and a high-speed bur and [place] rongeurs. A small medial facetectomy was performed again further access. A partial foraminotomy was also performed. Portions of the ligamentum flavum were taken down to expose the dura and traversing nerve root. I was able to mobilize the traversing nerve root and gain access to the disc space. Note was made of obvious compression from the disc. Protecting the soft tissue structures, a small annulotomy was established. I was able to perform discectomy and remove any extruded disc fragments and any loose fragments from within the disc itself. There is some significant disc desiccation noted. I tried to preserve the disc annulus that appeared stable. There were no further extruded fragments noted. I was able to get excellent decompression at the bilateral neural foramen. There is no evidence of dural tear or leak. Good hemostasis maintained. The wound was copiously irrigated and suctioned dry. Good decompression and discectomy was noted. This was performed similarly at L4 5 and L5-S1. There is a partial discectomy performed at each of these levels. We were able to proceed with closure. The fascia was closed for a watertight closure. The subcuticular tissue was closed with absorbable suture. The wound was cleaned and dried and dressed with the appropriate dressing. The drapes were broken down. The patient was gently rolled back onto their hospital bed being careful to maintain their cervical spine and good neutral alignment and position. They were woken up by anesthesia, extubated, and brought to the recovery room in good stable condition. The patient will be admitted to the hospital for observation and for appropriate postoperative care, medical management and monitoring. We will continue to follow them closely about the postoperative course.
--- NOTE | 2017-12-18 16:01 | XR ---
EXAMINATION TYPE: XR lumbar spine 1V, FL guidance operating room DATE OF EXAM: 12/18/2017 COMPARISON: NONE HISTORY: 62-year-old male lumbar laminectomy FINDINGS: Metallic instruments are present posteriorly at the L5 level. Fluoroscopy time of 2 seconds was used during lumbar laminectomy. 1 image/s document/s the procedure . IMPRESSION: Intraoperative fluoroscopy as above.
[2017-12-18] MEDS: HYDROcodone/APAP 5-325MG 1 EACH TAB PO PRN ×2 (16:22→20:10)
[2017-12-18] MEDS: ceFAZolin IN SWFI 2 GM/20 ML SYRINGE IVP SCH (18:17)
[2017-12-18] MEDS ORDERED: NICOTINE 7MG/24HR PATCH TRANSDERM SCH (18:45)
[2017-12-18] MEDS: SODIUM CHLORIDE 0.9% 1,000 ML IV SCH ×2 (19:50→23:33)
[2017-12-18] MEDS ORDERED: GABAPENTIN 300 MG CAP PO SCH (21:00)
[2017-12-19 00:51] VITALS: RESP 16
[2017-12-19] MEDS: ceFAZolin IN SWFI 2 GM/20 ML SYRINGE IVP SCH (01:38)
[2017-12-19] MEDS: LACTATED RINGERS 1,000 ML IV SCH (07:45)
[2017-12-19 08:08] VITALS: BP 160/82; PULSE 68; TEMP 98.4
== END 2017-12-19 10:09 ==
LOC: OR 07:27 → 3SUR 11:13 → OR 12-19 10:09
PROVIDERS: ATTEND Orthopaedic Surgery Orthopaedic Surgery of the Spine
DX: M48.061 Spinal stenosis, lumbar region without neurogenic claudication (principal); M48.07 Spinal stenosis, lumbosacral region; M51.16 Intervertebral disc disorders with radiculopathy, lumbar region; M51.17 Intervertebral disc disorders with radiculopathy, lumbosacral region; M43.16 Spondylolisthesis, lumbar region; M47.26 Other spondylosis with radiculopathy, lumbar region; M47.27 Other spondylosis with radiculopathy, lumbosacral region; R53.1 Weakness; M21.372 Foot drop, left foot; I10 Essential (primary) hypertension; F17.200 Nicotine dependence, unspecified, uncomplicated; Z79.899 Other long term (current) drug therapy; Z79.1 Long term (current) use of non-steroidal anti-inflammatories (NSAID); Z79.891 Long term (current) use of opiate analgesic
CPT/HCPCS: 94760; 72020; 63030; 63035; S4990; J2250; J1040; J2405; J0690 ×2

== ENCOUNTER → 2023-02-19 | Outpatient (CLI) | payer BC ==
--- NOTE | 2023-02-19 15:02 | XR ---
EXAMINATION TYPE: XR elbow complete LT DATE OF EXAM: 02/19/2023 2:49 PM CLINICAL INDICATION:Male, 67 years old with history of W01.0XXA; PH[facility] COMPARISON: None TECHNIQUE: XR elbow complete LT; elbow was examined in AP, lateral, and oblique projections. FINDINGS: No evidence of any acute osseous pathology, joint dislocation, or soft tissue swelling is n oted. Trace joint effusion may be present.. Degeneration changes with enthesophyte of the olecranon process. Remote injury with well-corticated lesion off the lateral epicondyle. IMPRESSION: No evidence of acute fracture. There may be a trace joint effusion which could be on a degenerative b asis. Consider CT if there there is a history of trauma and concern for fracture.
--- NOTE | 2023-02-19 15:03 | XR ---
Left rib series. DATE: 02/19/2023. COMPARISON: None available. Clinical history: Fall. IMPRESSION: The left lung is clear. Appears to be a nondisplaced fracture of the posterior left seventh rib of indeterminate age. No ryan tional fractures are seen.
--- NOTE | 2023-02-19 15:04 | XR ---
EXAMINATION TYPE: XR chest 2V DATE OF EXAM: 02/19/2023 COMPARISON: NONE HISTORY: Fall. TECHNIQUE: Frontal and lateral views of the chest are obtained. FINDINGS: There is no focal air space opacity, pleural effusion, or pneumothorax seen. The cardiac silhouette size is within normal limits. The osseous structures are intact. IMPRESSION: No acute cardiopulmonary process.
== END | disposition home or self-care (01) ==
LOC: RADXRMAIN 14:22
PROVIDERS: ATTEND Family Medicine
DX: M19.022 Primary osteoarthritis, left elbow (principal); W01.0XXA Fall on same level from slipping, tripping and stumbling without subsequent striking against object, initial encounter
CPT/HCPCS: 71046

== ENCOUNTER 2023-06-03 10:13 | Day surgery (SDC) | payer BC ==
--- NOTE | 2023-06-02 08:20 | P.HPOR ---
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 He notes anterior thigh and groin pain with any weightbearing activities. He also feels weak in that leg. He's been limping. He has tried medications without much relief. He notes the pain significantly limits his normal function and activities. Review of Systems Negative except as in HPI 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 in past, foot numb History of Any Multi-Drug Resistant Organisms: None Reported Past Surgical History: Back Surgery, Orthopedic Surgery Additional Past Surgical History / Comment(s): rt ankle arthroscopy, pain procedures Past Anesthesia/Blood Transfusion Reactions: No Reported Reaction Smoking Status: Former smoker - Past Family History Father Additional Family Medical History / Comment(s): back/knee sx Mother Family Medical History: No Reported History Brother(s) Family Medical History: No Reported History Sister(s) Family Medical History: No Reported History Medications and Allergies Home Medications Medication Instructions Recorded Confirmed Type Naproxen Sodium [Aleve] 220 mg PO BID PRN 05/28/23 05/28/23 History amLODIPine [Norvasc] 5 mg PO 1500 05/28/23 05/28/23 History Allergies Allergy/AdvReac Type Severity Reaction Status Date / Time No Known Allergies Allergy Verified 05/28/23 15:08 Physical Examination - Hip left Gait: antalgic Tenderness with palpation: anterior Pain with motion: internal rotation and hip flexion ROM: flexion: 70 degrees ROM: internal rotation: 0 degrees ROM: external rotation: 50 degrees Crepitus with motion: Yes Strength: extension: 5/5 Strength: flexion: 5/5 Tests: impingement tests: positive Results The patient is a well-developed well-nourished male proximally 5 foot 9, 162 pounds of mesomorphic habitus. HEENT exam is nonfocal, neck is supple. He has painful passive motion of his left hip. Straight leg raise is negative. Clinically he has 1 cm shortening of the left leg compared to the right. Light touch is diminished along his left lateral thigh and over the first dorsal webspace of his left foot. He does have an antalgic gait pattern. - Diagnostic results Hip x-ray: image reviewed (2 views of the left hip obtained in the office show severe osteoarthrosis with subchondral sclerosis and [id number] changes.) Assessment and Plan Assessment: Left hip severe osteoarthrosis Plan: I talked to the patient at length regarding his condition along with treatment options. At this point is quite symptomatic and limited secondary to left hip osteoarthrosis despite attempted conservative measures. After a thorough discussion he opts to proceed with surgery. We will plan to proceed with a left total hip arthroplasty utilizing an anterior approach. Risks and benefits were discussed at length in layman's terms. We will institute DVT prophylaxis postoperatively.
[~2023-06-03 10:13] MED LIST changes: -BACITRACIN 50,000 UNIT, POLYMYXIN B 500,000 UNIT in SODIUM CHLORIDE 0.9% IRRIGATIO 1,00... IRRIGATION ONE; +HYDROmorphone 0.5 MG/0.5 ML SYRINGE IVP PRN; +TRANEXAMIC 1,000 MG/100ML-NACL 1,000 MG in SALINE 1 100ML.BAG IVPB PRN; -ceFAZolin IN SWFI 2 GM/20 ML SYRINGE IVP ONE
[2023-06-03] MEDS: MELOXICAM 7.5 MG TAB PO PRN (10:55)
[2023-06-03] MEDS: ACETAMINOPHEN TAB 500 MG TAB PO PRN (10:55)
[2023-06-03] MEDS: fentaNYL (PF) 50 MCG/ML 2 ML AMP IVP ONE (11:08)
[2023-06-03] MEDS: MIDAZOLAM 2 MG/2 ML VIAL IVP ONE (11:08)
--- NOTE | 2023-06-03 11:18 | P.ANPRN ---
Procedure Note - Anesthesia - Nerve Block Performed Left Maikol Single Time Out Performed: Yes Date of Procedure: 06/03/23 Procedure Start Time: 11:07 Procedure Stop Time: 11:14 Location of Patient: PreOp Indication: Acute Post-Operative Pain, Requested by Surgeon Sedation Type: Sedate with meaningful contact maintained Preparation: Sterile Prep Position: Supine Needle Types: Pajunk Needle Gauge: 21 Ultrasound used to visualize needle placement: Yes Ultrasound used to observe medication spread: Yes Injectate: 0.5% Ropivacaine (see comment for volume) (Ropivacaine 0.5% 20 ml + 10 ml NS + 4 mg Dexamethasone) Blood Aspirated: No Pain Paresthesia on Injection Noted: No Resistance on Injection: Normal Image Stored and Saved: Yes Events: Uneventful and Well Tolerated
[2023-06-03] MEDS: LACTATED RINGERS 1,000 ML IV SCH (11:25)
[2023-06-03] MEDS: VANCOMYCIN 1,000 MG in SODIUM CHLORIDE 0.9% 250 ML IVPB PRN (11:39)
[2023-06-03] MEDS ORDERED: DEXAMETHASONE SOD PHOSPHATE 4 MG/ML 1 ML VIAL ONE (12:29)
[2023-06-03] MEDS ORDERED: PROPOFOL 10 MG/ML 20 ML VIAL IV ONE (12:29)
[2023-06-03] MEDS ORDERED: ROPIVACAINE 5 MG/ML 30 ML VIAL ONE (12:29)
[2023-06-03] MEDS ORDERED: PHENYLEPHRINE 10 MG/ML VIAL ONE (12:29)
[2023-06-03] MEDS ORDERED: SODIUM CHLORIDE 0.9% (PF) 10 ML VIAL ONE (12:29)
[2023-06-03] MEDS ORDERED: ePHEDrine 50 MG/ML 1 ML VIAL ONE (12:29)
[2023-06-03] MEDS ORDERED: fentaNYL (PF) 50 MCG/ML 2 ML AMP ONE (12:29)
[2023-06-03] MEDS ORDERED: WATER FOR INJECTION, STERILE 10 ML VIAL IV ONE (12:29)
[2023-06-03] MEDS ORDERED: GLYCOPYRROLATE 0.2 MG/ML 2 ML VIAL ONE (12:29)
[2023-06-03] MEDS ORDERED: KETAMINE HCL IN 0.9 % NACL 50 MG/5 ML SYRINGE ONE (12:29)
[2023-06-03] MEDS ORDERED: TRANEXAMIC 1,000 MG/100ML-NACL PREMIX BAG ONE (12:29)
[2023-06-03] MEDS ORDERED: MIDAZOLAM 2 MG/2 ML VIAL ONE (12:29)
[2023-06-03] MEDS: ceFAZolin 1,000 MG in SODIUM CHLORIDE 0.9% 1,000 ML IRRIGATION ONE (13:10)
[2023-06-03] MEDS: LACTATED RINGERS 1,000 ML IV ONE (14:05)
[2023-06-03] MEDS ORDERED: MAGNESIUM HYDROXIDE 2,400 MG/30 ML CUP PO PRN (14:33)
[2023-06-03] MEDS ORDERED: NALOXONE 0.4 MG/ML 1 ML VIAL IV PRN (14:33)
[2023-06-03] MEDS ORDERED: HYDROmorphone 0.5 MG/0.5 ML SYRINGE IVP PRN (14:33)
[2023-06-03] MEDS ORDERED: hydrOXYzine pamoate 25 MG CAP PO PRN (14:33)
--- NOTE | 2023-06-03 14:46 | P.OP ---
Date of Procedure: 06/03/23 Preoperative Diagnosis: Left hip severe osteoarthrosis Postoperative Diagnosis: Same Procedure(s) Performed: Left total hip arthroplastypress-fitanterior approach Implants: Depuy Corail size 12/135/standard offset press-fit collared femoral stem, 36-2 cobalt chrome femoral head, 54 mm [place] acetabular shell with neutral polyethylene liner. Anesthesia: spinal Surgeon: Francisco Telles Squeegee Operator #1: Ru De Luna Estimated Blood Loss (ml): 150 Pathology: none sent Condition: stable Disposition: PACU Indications for Procedure: The patient is a 68-year-old male who presents with progressive left hip pain secondary to osteoarthrosis despite attempted conservative measures. A discussion of the risks and benefits of operative intervention versus continued conservative measures was made with patient. He opted to proceed with surgery. Operative risks to include infection, neurovascular injury, development of blood clots, fracture, leg length discrepancy, possible instability, possible component loosening/failure and possible need for subsequent procedures was discussed. Informed consent was obtained. Operative Findings: As below Description of Procedure: The patient was brought to the operating room, and after induction of spinal anesthesia was placed supine on the Diane table. Positioning was checked with fluoroscopy. The left hip was then prepped and draped in a normal fashion. A 12 cm incision was then made starting 2 fingerbreadths distal and 3 finger breaths posterior to the ASIS in line with the proximal femur. The skin was incised sharply. Subcutaneous tissues were divided sharply. Electrocautery was used for hemostasis. The fascia was split in line with skin incision. The interval between the sartorius and tensor fascia marilin was then bluntly developed. The posterior fascia was opened with electrocautery. The lateral circumflex vessels were identified and cauterized prior to sectioning. A retractor was placed along the superior femoral neck as well as the anterior acetabular rim. A wide capsulotomy was performed. The neck cut was then made at a 45 angle to the shaft approximately 1 1/2 cm above the level of the less er trochanter. The head was extracted. Attention was then paid towards preparing the acetabular. Anterior and posterior retractors were placed. The remaining capsular labral tissue sharply debrided clearly defining the acetabular margins. I began reaming with a 47 mm reamer taking care to initially medialize then reaming at 45 of abduction and 20 of anteversion. Sequential reaming is performed up to 53 mm. A trial 54 mm acetabular shell was inserted in the same orientation and was fully seated. There was good rim fit and stability. Positioning was checked with fluoroscopy. The final 54 mm acetabular shell was inserted again at 45 of abduction and 20 of anteversion. This was fully seated. There was good rim fit and stability. Again fluoroscopy was used to check the adequacy of placement. A neutral polyethylene liner was gently impacted. Care was taken to avoid any soft tissue interposition. Pulsatile lavage was utilized. Attention was then paid towards preparing the proximal femur. The central region was cleared of soft tissue. A canal finder was used to find the femoral canal. Sequential broaching was performed up to size 12 taking care to lateralize proximally. A calcar mill was used to fashion the medial calcar. There was good rotational stability. A standard neck along with a 36 mm -2 head was placed. The hip was gently reduced. Fluoroscopy was used to check the adequacy of positioning along with leg lengths. I felt both were good. The hip was gently dislocated. The trial components were removed. The final size 12 collared standard press-fit femoral stem was inserted parallel to the posterior cortex. This was fully seated and there was good rotational stability. A 36 mm -2 head was placed. This was gently impacted. The hip was then gently reduced. Final fluoroscopic view showed adequate placement implant along with religion of leg length. Stability was checked with 80 of external rotation and 60 of extension of the right hip. The wound was irrigated with sterile lavage. The fascia was closed with running 0 Vicryl suture. There was minimal drainage therefore a deep drain was not placed. The second dose of IV TXA was given. The subcutaneous tissues were reapproximated interrupted 2-0 Vicryl sutures. The skin was reapproximated with 3-0 subcuticular strata fix suture. Skin tape and adhesive was applied. A sterile dressing was applied. The patient was then awoken from sedation and transferred to recovery room in good condition. Blood loss was estimated at 150 mL. No complications were incurred. Sponge and needle counts were correct at the end of the case. Ru AZEVEDO assisted during the major components is case to include exposure, bone resection, implantation, and closure.
[2023-06-03] MEDS ORDERED: VANCOMYCIN IV PER PHARMACY 1 EACH MISC MISCELLANE PRN (15:10)
--- NOTE | 2023-06-03 15:30 | XR ---
Single view left hip. DATE: 06/03/2023. COMPARISON: 04/25/2023. Clinical history: Postop hip replacement. IMPRESSION: There is placement of a left total hip arthroplasty which appears anatomically aligned on this single view evaluation. There is some air seen within the soft tissues compatible with recent surgical changes.
[2023-06-03] MEDS: DEXAMETHASONE SOD PHOSPHATE 4 MG/ML 1 ML VIAL IV ONE (17:39)
[2023-06-03] MEDS: ONDANSETRON 4 MG/2 ML VIAL IVP ONE (17:40)
[2023-06-03] MEDS: HYDROcodone/APAP 5-325MG 1 EACH TAB PO PRN (18:54)
[2023-06-03] MEDS: HYDROmorphone 0.5 MG/0.5 ML SYRINGE IVP PRN (21:27)
[2023-06-03] MEDS: SENNOSIDES-DOCUSATE SODIUM 1 EACH TAB PO SCH (21:28)
[2023-06-03] MEDS: VANCOMYCIN 1,250 MG in SODIUM CHLORIDE 0.9% 250 ML IVPB SCH (21:28)
[2023-06-04] MEDS: HYDROcodone/APAP 7.5-325MG 1 EACH TAB PO PRN (00:11)
[2023-06-04] MEDS: RIVAROXABAN 10 MG TAB PO SCH (07:55)
[2023-06-04 08:47] VITALS: BP 147/73; PULSE 69; RESP 17; TEMP 97.7
--- NOTE | 2023-06-04 09:07 | XR ---
EXAMINATION TYPE: XR Hip Complete LT, FL guidance operating room DATE OF EXAM: 06/03/2023 COMPARISON: NONE HISTORY: 68-year-old male anterior left hip replacement FINDINGS: 29 sec FL 1.5337 Gycm2 DAP dose 5 images submitted IMPRESSION: Intraoperative fluoroscopy as above.
[2023-06-04 11:19] LABS: HCT 38.8 % (39.6-50.0); MCHC 33.5 g/dL (32.0-37.0); MCV 95.6 FL (80.0-97.0); Mean Platelet Volume 10.3 FL (9.5-12.2); NRBC Per 100 WBC 0 X 10*3/uL (0.00-0.01); Platelet Count 301 X 10*3/uL (140-440); RBC 4.06 X 10*6/uL (4.40-5.60); RDW 13.1 % (11.5-14.5); WBC 15.87 X 10*3/uL (4.50-10.00)
[2023-06-04 11:46] LABS: Basophils # (A) 0.03 X 10*3/uL (0.00-0.10); Basophils % (A) 0.2 %; Eosinophils # (A) 0.03 X 10*3/uL (0.04-0.35); Eosinophils % (A) 0.2 %; Lymphocytes # (A) 2.22 X 10*3/uL (0.90-5.00); Monocytes # (A) 2.06 X 10*3/uL (0.20-1.00); Neutrophils # (A) 11.48 X 10*3/uL (1.80-7.70); Neutrophils % (A) 72.3 %; RBC Morphology Normal (Normal)
--- NOTE | 2023-06-04 12:26 | P.DS ---
Providers Date of admission: 06/03/2023 Expected date of discharge: 06/04/23 Attending physician: Francisco Telles Consults: 06/03/23 14:33 Consult Physician Routine Consulting Provider: Manisha Bagley Consult Reason/Comments: medical management s/p direct anterior left total hip arthroplasty Do you want consulting provider notified?: Yes Primary care physician: [facility] Hospital Course: Date of admission: 06/03/2023 Date of discharge: 06/04/2023 Admission diagnosis: Left hip osteoarthritis Discharge diagnosis: same Attending physician: Dr. Telles Surgical procedures: Direct anterior left total hip arthroplasty Brief history: Patient is a 68-year-old male with a history of progressive primary left hip osteoarthritis. At this point patient has failed conservative treatment measures and has opted to proceed with a elective left total hip arthroplasty. Hospital course: Details of patient's surgery can be found in operative report. Patient tolerated the procedure well and was subsequently transported to orthopedic floor. Patient's orthopeidc and medical care was provided daily. Patient had daily laboratory tests performed for evaluation of overall blood counts. Patient had daily physical therapy to include strengthening range of motion as well as education with walker ambulation. Patient was treated with Xarelto for their postoperative DVT prophylaxis during their inpatient stay. Patient was noted to have a relatively uneventful postoperative course. Patient reported satisfactory pain control with oral pain medications by postoperative d ay 1. Patient showed satisfactory progress with physical therapy. Patient moved steadily through the program and had no difficulty meeting the goals by postoperative day 1. Given patient's otherwise satisfactory course and having met physical therapy goals, plan is to discharge patient home with health services on postoperative day 1. Discharge condition/disposition: Patient will be discharged home with health services in stable condition. Discharge medications: Instructions are given on resumption of patient's normal daily medications per primary care recommendation, in addition patient will be prescribed Sutton; senna; Eliquis. Discharge instructions: 1. Wound care and infection precautions, keep incision dry and covered while showering, no lotions, creams, moisturizers. No soaking, tubs, pools, hottubs. Do not scrub over the incision. 2. Weight-bear as tolerated with walker / cane until follow-up. 3. Ice and elevate when necessary. Do not exceed 20 minutes per hour with ice pack. 4. Utilize compression sleeve until seen at first follow up appointment. 5. Visiting nursing care. 6. Home physical therapy. 7. Pain meds and anticoagulants per prescription. 8. Pain medication has potential to cause constipation. Increase oral fluid and fiber intake. Contact primary care provider if you have not had a bowel movement within 48 hours after discharge 9. No anti-inflammatory medication until discussed at first post operative visit, this including Motrin, Aleve, Mobic, Diclofenac. 10. Follow up in office at 2 weeks postop with Edmundo Stubbs PA-C / Ru De Luna PA-C 11. Follow up with your primary care doctor 7-10 days after discharge. 12. Contact [facility] with any questions, . Keep incision clean, dry, intact. While showering, cover fusion tape with Saran wrap. Keep fusion tape on until follow-up appointment in office in 2 weeks. Assessment: Left hip osteoarthritis Procedures: Direct anterior left total hip arthroplasty Patient Condition at Discharge: Good Plan - Discharge Summary Discharge Rx Participant: Yes New Discharge Prescriptions: New Apixaban [Eliquis] 2.5 mg PO BID #60 tab HYDROcodone/APAP 7.5-325MG [Sutton 7.5-325] 1 - 2 tab PO Q6HR PRN #32 tab PRN Reason: Pain Sennosides/Docusate Sodium [Senna Plus 8.6-50 mg Softgel] 1 each PO DAILY #20 capsule Continue amLODIPine [Norvasc] 5 mg PO 1500 Discontinued Naproxen Sodium [Aleve] 220 mg PO BID PRN PRN Reason: Pain Discharge Medication List amLODIPine [Norvasc] 5 mg PO 1500 05/28/23 [History] Apixaban [Eliquis] 2.5 mg PO BID #60 tab 06/04/23 [Rx] HYDROcodone/APAP 7.5-325MG [[place] 7.5-325] 1 - 2 tab PO Q6HR PRN #32 tab 06/04/23 [Rx] Sennosides/Docusate Sodium [Senna Plus 8.6-50 mg Softgel] 1 each PO DAILY #20 capsule 06/04/23 [Rx] Follow up Appointment(s)/Referral(s): Ru De Luna, MAGDA [PHYSICIAN SEO ASSISTANT] - 2 Weeks [facility], [NON-STAFF] - 1-2 Days ([facility] will call you to schedule your in home physical therapy and nursing visits. ) Cuauhtemoc Wilson DO [Primary Care Provider] - 1-2 Days Patient Instructions/Handouts: Anterior Hip Replacement (DC) Activity/Diet/Wound Care/Special Instructions: Orthopedic Discharge Instructions: 1. Wound care and infection precautions, keep incision dry and covered while showering, no lotions, creams, moisturizers. No soaking, pools, hot tubs. Do not scrub over incision. 2. Weight-bear as tolerated with walker / cane until follow-up. 3. Ice and elevate when necessary. Do not exceed 20 minutes per hour with ice pack. 4. Utilize compression sleeve until seen at first follow up appointment. 5. Pain meds and anticoagulants per prescription. 6. Pain medication has potential to cause constipation. Increase oral fluid and fiber intake. Contact primary care provider if you have not had a bowel movement within 48 hours after discharge. 7. No anti-inflammatory medication until discussed at first post operative visit, this including Motrin, Aleve, Mobic, Diclofenac. 8. Follow up in office at 2 weeks postop with Edmundo Stubbs PA-C / Ru De Luna PA-C 9. Follow up with your primary care doctor 7-10 days after discharge. 10. Contact [facility] with any questions, . Keep incision clean, dry, intact. While showering, cover fusion tape with Saran wrap. Keep fusion tape on until follow-up appointment in office in 2 weeks Discharge Disposition: HOME WITH HOME HEALTH SERVICES
--- NOTE | 2023-06-04 14:34 | P.PN ---
Subjective Progress Note Date: 06/04/23 Principal diagnosis: Right hip osteoarthritis Patient was seen at bedside this morning sitting up in chair with dressing present over left anterior hip. Patient says he just finished working with therapy and walk around the hallway using walker and up-and-down steps. Patient states he has urinary several times since surgery yesterday. Patient says he has not had a bowel movement yet, however, patient says he has been passing gas. Patient says the pain is controlled with medication. Patient denies chest pain, fever, shortness of breath, nausea, vomiting, change in vision, loss of bowel/bladder control. Objective - Vital Signs Vital signs: Vital Signs Temp 97.7 F 06/04/23 07:35 Pulse 69 06/04/23 07:35 Resp 17 06/04/23 07:35 BP 147/73 06/04/23 07:35 Pulse Ox 96 06/04/23 07:35 FiO2 Intake & Output 06/03/23 06/04/23 06/04/23 18:59 06:59 18:59 Intake Total 2151 Output Total 150 Balance 2000 Weight 70.3 kg Intake: IV 1 Output: Estimated Blood Loss 150 Other: # Voids 0 2 2 - Exam Left hip: Incision is clean, dry, and intact. The exofin fusion tape is in good conditio n. There is minimal soft tissue swelling and ecchymosis surrounding the medial and lateral aspects of the incision. Calf is soft, no tenderness with palpation. Plantar flexion, dorsiflexion, EHL, FHL are intact. Sensory exam to light touch throughout the extremity is intact, dorsal pedis pulses 2+. - Labs CBC & Chem 7: 06/04/23 06:18 Labs: Abnormal Lab Results - Last 24 Hours (Table) 06/04/23 Range/Units 06:18 WBC 15.87 H (4.50-10.00) X 10*3/uL RBC 4.06 L (4.40-5.60) X 10*6/uL Hct 38.8 L (39.6-50.0) % Immature Gran # 0.05 H (0.00-0.04) X 10*3/uL Neutrophils # 11.48 H (1.80-7.70) X 10*3/uL Monocytes # 2.06 H (0.20-1.00) X 10*3/uL Eosinophils # 0.03 L (0.04-0.35) X 10*3/uL Assessment and Plan Assessment: 1. Left hip osteoarthritis - Postoperative day 1 status post left total hip arthroplasty Plan: 1. Left hip osteoarthritis - left total hip arthroplasty performed yesterday, 06/03/2023. Patient stable at bedside this morning. Patient did do well with therapy. Patient does have a walker home. Discharge home today with health services. 2. Appreciate medical management 3. Pain management - Gilbert 4. DVT prophylaxis - Xarelto in hospital. Going home with eloquence 2.5 mg twice a day 2 weeks 5. GI prophylaxis - senna 6. PT/OT -weightbearing as tolerated with walker 7. Encourage incentive spirometer use 8. Discharge planning - home today with health services Time with Patient: Less than 30
--- NOTE | 2023-06-04 15:22 | P.CONS ---
History of Present Illness - Reason for Consult Consult date: 06/04/23 Requesting physician: Ru De Luna - History of Present Illness This is a pleasant 68-year-old male with medical history significant for hypertension, smoking and occasional alcohol use. Patient comes into the hospital for a scheduled left hip arthroplasty. He is evaluated today postoperatively #1 he was reporting soreness to the left hip near the incision site. He is not having any numbness or tingling in the lower extremity. He has no chest pain or shortness of breath no nausea vomiting or diarrhea. He has not had much diet this is mostly due to the food choices. He has no abdominal pain. We have been up working with medical therapy and recommending for home with home care on discharge. Work today reveals a white blood cell count of 15.89 which is expected postoperatively and patient is encouraged to continue with his incentive spirometer to avoid any postoperative atelectasis. Patient is educated on smoking cessation. Medically he can be resumed on his amlodipine on discharge. REVIEW OF SYSTEMS: CONSTITUTIONAL: No fever, no malaise, no fatigue. HEENT: No recent visual problems or hearing problems. Denied any sore throat. CARDIOVASCULAR: No chest pain, orthopnea, PND, no palpitations, no syncope. PULMONARY: No shortness of breath, no cough, no hemoptysis. GASTROINTESTINAL: No diarrhea, no nausea, no vomiting, no abdominal pain. NEUROLOGICAL: No headaches, no weakness, no numbness. HEMATOLOGICAL: Denies any bleeding or petechiae. GENITOURINARY: Denies any burning micturition, frequency, or urgency. MUSCULOSKELETAL/RHEUMATOLOGICAL: Denies any joint pain, swelling, or any muscle pain. ENDOCRINE: Denies any polyuria or polydipsia. The rest of the 14-point review of systems is negative. PHYSICAL EXAMINATION: GENERAL: The patient is alert and oriented x3, not in any acute distress. Well developed, well nourished. HEENT: Pupils are round and equally reacting to light. EOMI. No scleral icterus. No conjunctival pallor. Normocephalic, atraumatic. No pharyngeal erythema. No thyromegaly. CARDIOVASCULAR: S1 and S2 present. No murmurs, rubs, or gallops. PULMONARY: Chest is clear to auscultation, no wheezing or crackles. ABDOMEN: Soft, nontender, nondistended, normoactive bowel sounds. No palpable organomegaly. MUSCULOSKELETAL: No joint swelling or deformity. EXTREMITIES: No cyanosis, clubbing, or pedal edema. NEUROLOGICAL: Gross neurological examination did not reveal any focal deficits. SKIN: No rashes. Assessment and plan Osteoarthritis status post left hip arthroplasty postoperative day 1 DVT prophylaxis per orthopedics they recommending to discharge on eliquiss. History of hypertension currently normotensive postoperatively recommending to resume amlodipine on discharge. Chronic and ongoing nicotine use counseled on smoking cessation this is especially important in the postoperative period Occasional alcohol use GI prophylaxis DVT prophylaxis: Xarelto Full Code Recommend to continue on PPI and bowel regiment while using narcotics for pain management. Orthopedics recommending to discharge on eliquis 2.5 mg BID for the next 30 days for DVT prophylaxis. Continue with incentive spirometer 10 x an hour while awake. Recommend to see PCP Dr. Cuauhtemoc Wilson in 1 to 2 days. Medically patient is stable for discharge. The impression and plan of care has been dictated by Leisa Lechuga, Nurse Practitioner as directed. Dr. Steve MD I have performed a history and physical examination and medical decision making of this patient, discussed the same with the dictator, and agree with the dictators assessment and plan as written, documented as a scribe. Based on total visit time, I have performed more than 50% of this visit. 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 in past, foot numb History of Any Multi-Drug Resistant Organisms: None Reported Past Surgical History: Back Surgery, Orthopedic Surgery Additional Past Surgical History / Comment(s): rt ankle arthroscopy, pain procedures Past Anesthesia/Blood Transfusion Reactions: No Reported Reaction Past Psychological History: Anxiety Additional Psychological History / Comment(s): anxious about surgery Smoking Status: Former smoker Past Alcohol Use History: Occasional Additional Past Alcohol Use History / Comment(s): started smoking @age of 20, was currently smoking 3-5 CIGARETTES DAILY but quit smoking yesterday, 1 beer most nights fter work Past Drug Use History: Marijuana, Opiates Additional Drug Use History / Comment(s): PAST HX NO USE AT THIS TIME - Past Family History Father Additional Family Medical History / Comment(s): back/knee sx Mother Family Medical History: No Reported History Brother(s) Family Medical History: No Reported History Sister(s) Family Medical History: No Reported History Medications and Allergies Home Medications Medication Instructions Recorded Confirmed Type amLODIPine [Norvasc] 5 mg PO 1500 05/28/23 05/28/23 History Apixaban [Eliquis] 2.5 mg PO BID #60 tab 06/04/23 Rx HYDROcodone/APAP 7.5-325MG [[place] 1 - 2 tab PO Q6HR PRN #32 tab 06/04/23 Rx 7.5-325] Sennosides/Docusate Sodium [Senna 1 each PO DAILY #20 capsule 06/04/23 Rx Plus 8.6-50 mg Softgel] Allergies Allergy/AdvReac Type Severity Reaction Status Date / Time No Known Allergies Allergy Verified 06/03/23 10:25 Physical Exam Vitals: Vital Signs Temp Pulse Resp BP BP Pulse Ox 06/04/23 07:35 97.7 F 69 17 147/73 96 06/04/23 00:32 98.2 F 82 16 168/81 96 06/03/23 19:16 98.1 F 72 18 109/68 94 L 06/03/23 18:12 56 L 122/75 98 06/03/23 18:11 63 126/79 91 L 06/03/23 15:42 59 L 16 123/69 94 L 06/03/23 15:27 54 L 16 115/67 95 06/03/23 15:12 57 L 6 L 117/67 95 06/03/23 14:57 65 18 84/70 99 06/03/23 14:42 96.8 F L 70 18 93/57 97 06/03/23 11:15 62 16 167/69 97 06/03/23 10:37 97.5 F L 82 16 171/89 96 Intake and Output 06/03/23 06/04/23 06/04/23 22:59 06:59 14:59 Other: # Voids 0 2 Weight 70.3 kg Results CBC & Chem 7: 06/04/23 06:18 Assessment and Plan Time with Patient: Less than 30
== END 2023-06-04 13:54 | disposition home health service (06) ==
LOC: OR 10:13 → 4SSUR 14:37 → OR 06-04 13:54
PROVIDERS: ATTEND Orthopaedic Surgery
DX: M16.12 Unilateral primary osteoarthritis, left hip (principal); I10 Essential (primary) hypertension; M19.90 Unspecified osteoarthritis, unspecified site; Z87.891 Personal history of nicotine dependence; Z79.899 Other long term (current) drug therapy
CPT/HCPCS: 27130; 97161; 97166; 64447; 85025; 73501; 73502; C1776; J2250; J3370 ×2; J1100; J0690; J3010; J2795; J2704; J1170 ×2; J2371